=== PATIENT | female | born 1965 | race Caucasian/White ===

== ENCOUNTER 2017-01-04 12:00 | Emergency (ER) | payer BC ==
[~2017-01-04 12:00] MED LIST: Acetaminophen/HYDROcodone 325-5 MG Tab PO ONE
[2017-01-04 12:11] VITALS: BP 109/67
[2017-01-04 12:59] LABS: CHLORIDE,CL 103 mEq/L (98-106); SODIUM,NA 139 mEq/L (136-145)
--- NOTE | 2017-01-04 13:17 | EDM.PDOC ---
ED HPI GENERAL MEDICAL PROBLEM - General Chief Complaint: Genitourinary Problem Stated Complaint: blood in urine Time Seen by Provider: 01/04/17 12:47 Source of Information: Reports: Patient, RN History Limitations: Reports: No Limitations - History of Present Illness INITIAL COMMENTS - FREE TEXT/NARRATIVE: Patient with long history 1year of UTI with recent treatment of UTI with Macrobid 2 weeks. She states she fell backwards last night off from chair sustaining injury to the Left flank region. She indicates feel to ground without LOC and pain in the Left flank with gross hematuria with clotting shortly after the fall. She indicates persistent discomfort in the left flank region-pain scale 9 and noted improvement with lemuel hematuria. She has presented for evaluation. Onset: Sudden Onset Date: 01/03/17 Onset Time: 20:00 Duration: Intermittent Location: Reports: Back, Other (Left Flank) Quality: Reports: Ache, Pressure, Sharp, Throbbing Severity: Severe Improves with: Reports: Heat Therapy, Rest Worsens with: Reports: Movement Context: Reports: Trauma Associated Symptoms: Reports: No Other Symptoms Treatments KAIWHAKAHAERE: Reports: NSAIDS Lower Back Pain Score (Numeric/FACES): 9 - Related Data Allergies Allergy/AdvReac Type Severity Reaction Status Date / Time cefuroxime [From Ceftin] Allergy Cannot Verified 01/04/17 12:11 Remember Home Meds: Home Meds RX: Acetaminophen [Tylenol] 325 mg PO ASDIRECTED PRN 09/02/13 [History] RX: Cholecalciferol (Vitamin D3) [Vitamin D3] 1,000 unit PO DAILY 09/02/13 [ History] RX: Folic Acid 1 mg PO DAILY 09/02/13 [History] RX: Multivitamin [Multi-Vitamin Daily] 1 each PO DAILY 09/02/13 [History] RX: Metoprolol Succinate [Toprol XL 50mg] 50 mg PO DAILY 09/20/15 [History] RX: Ondansetron 4 mg PO DAILY PRN 04/08/16 [History] RX: amLODIPine Besylate [Amlodipine Besylate] 5 mg PO DAILY 04/08/16 [History] Lisinopril/Hydrochlorothiazide [Lisinopril-Hctz 10-12.5 mg Tab] 1 tab PO DAILY 01/04/17 [History] RX: Esomeprazole Magnesium 40 mg PO DAILY 01/04/17 [History] RX: Methenamine Hippurate 1 gm PO DAILY 01/04/17 [History] Past Medical History Cardiovascular History: Reports: Hypertension Genitourinary History: Reports: UTI, Recurrent 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: Musculoskeletal History: Reports: RA Hematologic History: Reports: Anemia, Other (See Below) Other Hematologic History: iron infusions - Infectious Disease History Infectious Disease History: Reports: Extended Spectrum Beta-Lactamase (ESBL) - Past Surgical History GI Surgical History: Reports: Cholecystectomy, Colonoscopy, Other (See Below) Musculoskeletal Surgical History: Reports: None Social & Family History - Family History Family Medical History: Noncontributory - Tobacco Use Smoking Status *Q: Never Smoker Second Hand Smoke Exposure: No - Caffeine Use Caffeine Use: Reports: Soda - Alcohol Use Days Per Week of Alcohol Use: 2 Number of Drinks Per Day: 2 Total Drinks Per Week: 4 - Recreational Drug Use Recreational Drug Use: No ED ROS GENERAL - Review of Systems Review Of Systems: See Below Constitutional: Denies: Fever, Chills, Malaise, Weakness, Fatigue HEENT: Reports: No Symptoms Respiratory: Reports: No Symptoms Cardiovascular: Reports: No Symptoms Endocrine: Reports: No Symptoms : Reports: Flank Pain, Hematuria, Other (Recent UTI with course of Macrobid finished this am) Musculoskeletal: Reports: Back Pain Skin: Reports: No Symptoms Neurological: Reports: No Symptoms Psychiatric: Reports: No Symptoms Hematologic/Lymphatic: Reports: No Symptoms Immunologic: Reports: No Symptoms ED EXAM, RENAL/ - Physical Exam Exam: See Below Exam Limited By: No Limitations General Appearance: Alert, WD/WN, Moderate Distress Eye Exam: Bilateral Eye: EOMI, Normal Fundi, Normal Inspection, PERRL Ears: Normal External Exam Nose: Normal Inspection, Normal Mucosa Throat/Mouth: Normal Inspection, Normal Lips, Normal Teeth Head: Atraumatic, Normocephalic Neck: Normal Inspection, Supple, Non-Tender, Full Range of Motion Respiratory/Chest: No Respiratory Distress, Lungs Clear, Normal Breath Sounds, No Accessory Muscle Use, Chest Non-Tender Cardiovascular: Normal Peripheral Pulses, Regular Rate, Rhythm, No Edema, No Gallop, No JVD GI/Abdominal: Normal Bowel Sounds, Soft, Non-Tender (Female) Exam: Deferred Rectal (Female) Exam: Deferred Back Exam: Normal Inspection, CVA Tenderness (L), Decreased Range of Motion (No bruising noted in the left flank region extreme tenderness with light palpation) . No: Full Range of Motion, Paraspinal Tenderness Extremities: Normal Inspection, Normal Range of Motion, No Pedal Edema, Normal Capillary Refill Neurological: Alert, Oriented, CN II-XII Intact, Normal Cognition, Normal Gait, Normal Reflexes, No Motor/Sensory Deficits Psychiatric: Normal Affect, Normal Mood Skin Exam: Warm, Dry, Intact, Normal Color, No Rash Lymphatic: No Adenopathy Course - Vital Signs Last Recorded V/S: Last Vital Signs Temp 37.6 C 01/04/17 12:06 Pulse 69 01/04/17 12:06 Resp 16 01/04/17 12:06 BP 109/67 01/04/17 12:06 Pulse Ox 100 01/04/17 12:06 - Orders/Labs/Meds Orders: Active Orders 24 hr Category Date Time Status Abdomen Pelvis w Cont [CT] Stat Exams 01/04/17 12:25 Taken HYDROmorphone [Dilaudid] Med 01/04/17 13:19 Active 1 mg IVPUSH Q1H PRN Sodium Chloride 0.9% [Normal Saline] 1,000 ml Med 01/04/17 13:30 Active IV ASDIRECTED Medication Orders Hydromorphone HCl (Dilaudid) 1 mg IVPUSH Q1H PRN PRN Reason: Pain Last Admin: 01/04/17 16:31 Dose: 1 mg Admin: 01/04/17 13:28 Dose: 1 mg Sodium Chloride (Normal Saline) 1,000 mls @ 999 mls/hr IV ASDIRECTED JAYY Last Admin: 01/04/17 14:52 Dose: 999 mls/hr Infusion: 01/04/17 14:26 Dose: 999 mls/hr Admin: 01/04/17 13:25 Dose: 999 mls/hr Labs: Laboratory Tests 01/04/17 01/04/17 01/04/17 Range/Units 12:15 12:25 12:25 WBC 8.6 (5.0-10.0) 10^3/uL RBC 3.44 L (4.00-5.50) 10^6/uL Hgb 10.8 L (12.0-16.0) g/dL Hct 32.9 L (37.0-47.0) % MCV 95.6 H (82.0-94.0) fL MCH 31.4 (27.0-32.0) pg MCHC 32.8 L (33.0-38.0) g/dL RDW Coeff of Radha 12.5 (11.0-15.0) % Plt Count 380 (150-400) 10^3/uL Neut % (Auto) 60.9 (35-85) % Lymph % (Auto) 28.2 (10-55) % Callaway % (Auto) 8.4 (0-16) % Eos % (Auto) 2.1 (0-5) % Baso % (Auto) 0.4 (0-3) % Neut # (Auto) 5.22 (1.80-7.00) 10^3/uL Lymph # (Auto) 2.42 (1.00-4.80) 10^3/uL Callaway # (Auto) 0.72 (0.00-0.80) 10^3/uL Eos # (Auto) 0.18 (0.00-0.45) 10^3/uL Baso # (Auto) 0.03 10^3/uL Sodium 139 (136-145) mEq/L Potassium 4.2 (3.5-5.0) mEq/L Chloride 103 (98-106) mEq/L Carbon Dioxide 23 (21-32) mmol/L BUN 49 H (7-18) mg/dL Creatinine 1.9 H (0.6-1.0) mg/dL Est Cr Clr Drug Dosing 30.81 mL/min Estimated GFR (MDRD) 28 L (>=60) mL/min Glucose 100 H (75-99) mg/dL Calcium 8.7 (8.4-10.1) mg/dL Total Bilirubin 0.4 (0.0-1.0) mg/dL AST 16 (15-37) U/L ALT 20 (12-78) U/L Alkaline Phosphatase 79 (46-116) U/L C-Reactive Protein < 0.2 L (0.2-0.8) mg/dL Total Protein 7.7 (6.4-8.2) g/dL Albumin 3.7 (3.4-5.0) g/dL Urine Color Yellow (YELLOW) Urine Appearance Slightly cloudy (CLEAR) Urine pH 5.5 (4.5-8.0) Ur Specific Aston 1.010 (1.003-1.020) Urine Protein Negative (NEGATIVE) mg/dL Urine Glucose (UA) Negative (NEGATIVE) mg/dL Urine Ketones Negative (NEGATIVE) mg/dL Urine Occult Blood Moderate H (NEGATIVE) Urine Nitrite Negative (NEGATIVE) Urine Bilirubin Negative (NEGATIVE) Urine Urobilinogen 0.2 (0.2-1.0) EU/dL Ur Leukocyte Esterase Small H (NEGATIVE) Urine RBC 20-30 H (0-5) /HPF Urine WBC 10-20 H (0-5) /HPF Urine Bacteria Occasional H (NOT SEEN) /HPF Meds: Medications Generic Name Dose Route Start Last Admin Trade Name Freq PRN Reason Stop Dose Admin Hydromorphone HCl 1 mg 01/04/17 13:19 01/04/17 16:31 Dilaudid IVPUSH 1 mg Q1H PRN Administration Pain Sodium Chloride 1,000 mls @ 999 mls/hr 01/04/17 13:30 01/04/17 14:52 Normal Saline IV 999 mls/hr ASDIRECTED JAYY Administration Discontinued Medications Generic Name Dose Route Start Last Admin Trade Name Freq PRN Reason Stop Dose Admin Iopamidol 100 ml 01/04/17 14:51 01/04/17 14:53 Isovue-300 (61%) IVPUSH 01/04/17 14:52 80 ml ONETIME ONE Administration Departure - Departure Time of Disposition: 16:41 Disposition: Home, Self-Care 01 Condition: Good Clinical Impression: Hematuria syndrome, UTI, Urinary tract infectious disease, Hematuria due to chronic cystitis, Renal insufficiency - Discharge Information Instructions: Pain Medicine Instructions, [id number], Urinary Tract Infection , Adult, [id number] Forms: ED Department Discharge Additional Instructions: Discussed with patient negative CT results and persistant UTI. Will repeat IV pain medication and allow to go home to F/U with Dr. Rivera in the am. Ua set up for culture will await results prior to reinitiating antibiotics. FLuids and hydration avised. Avoid NSAIDs Tie Siding 5 take 1 tablet every 6-8 hours orn. F/U if increased pain, hematuria or other S/S occurs prior to PCP appointment. Patient and in agreement. Will leave Hep Lock in. - Problem List & Annotations (1) Hematuria due to chronic cystitis SNOMED Code(s): 099681106358258 Code(s): N30.21 - OTHER CHRONIC CYSTITIS WITH HEMATURIA Status: Acute Current Visit: Yes (2) Renal insufficiency SNOMED Code(s): 122809272 Code(s): N28.9 - DISORDER OF KIDNEY AND URETER, UNSPECIFIED Status: Acute Current Visit: No - Problem List Review Problem List Initiated/Reviewed/Updated: Yes - My Orders Last 24 Hours: My Active Orders 01/04/17 12:25 Abdomen Pelvis w Cont [CT] Stat 01/04/17 13:19 HYDROmorphone [Dilaudid] 1 mg IVPUSH Q1H PRN 01/04/17 13:30 Sodium Chloride 0.9% [Normal Saline] 1,000 ml IV ASDIRECTED - Assessment/Plan Last 24 Hours: My Active Orders 01/04/17 12:25 Abdomen Pelvis w Cont [CT] Stat 01/04/17 13:19 HYDROmorphone [Dilaudid] 1 mg IVPUSH Q1H PRN 01/04/17 13:30 Sodium Chloride 0.9% [Normal Saline] 1,000 ml IV ASDIRECTED Assessment:: Ground level fall Left FLank Pain UTI Hematuria Plan: Discussed with patient negative CT results and persistant UTI. Will repeat IV pain medication and allow to go home to F/U with Dr. Rivera in the am. Ua set up for culture will await results prior to reinitiating antibiotics. FLuids and hydration avised. Avoid NSAIDs Tie Siding 5 take 1 tablet every 6-8 hours orn. F/U if increased pain, hematuria or other S/S occurs prior to PCP appointment. Patient and in agreement. Will leave Hep Lock in.
[2017-01-04] MEDS: Sodium Chloride 0.9% 1,000 ML IV SCH ×2 (13:25→14:52)
[2017-01-04] MEDS: HYDROmorphone 1 MG/ML Syringe IVPUSH PRN ×2 (13:28→16:31)
[2017-01-04] MEDS ORDERED: Iopamidol 612 MG/ML 100 ML Bottle IVPUSH ONE (14:51)
[2017-01-04] MEDS ORDERED: Take Home: Acetaminophen/HYDROcodone 325-5 MG, 2 Tab Pack PO ONE (16:45)
== END 2017-01-04 16:55 | disposition home or self-care (01) ==
LOC: CC.ED 12:00
DX: N30.21 Other chronic cystitis with hematuria (principal); I10 Essential (primary) hypertension; M06.9 Rheumatoid arthritis, unspecified; N28.9 Disorder of kidney and ureter, unspecified; Z90.49 Acquired absence of other specified parts of digestive tract; Z88.1 Allergy status to other antibiotic agents; Z87.440 Personal history of urinary (tract) infections
CPT/HCPCS: 36415; 74177; 80053; 81001; 85025; 86140; 87086; 87088; 96361; 96374; 96376; 99284; A9270; J1170; J7030; Q9967; 87186

== ENCOUNTER 2017-06-28 19:08 | Inpatient (IN) | payer BC ==
[2017-06-28] MEDS ORDERED: Albuterol/Ipratropium 3.0-0.5 MG/3 ML Neb Soln NEB ONE (19:28)
--- NOTE | 2017-06-28 19:44 | EDM.PDOC ---
ED HPI GENERAL MEDICAL PROBLEM - General Chief Complaint: Fever Stated Complaint: fever, shortness of breath, cough Time Seen by Provider: 06/28/17 19:23 Source of Information: Reports: Patient History Limitations: Reports: No Limitations - History of Present Illness INITIAL COMMENTS - FREE TEXT/NARRATIVE: This patient is a 51 year old male that presents to the ER. Patient reports that on Thursday she began having runny nose, congestion, drainage, headache, body aches, fever, productive cough, shortness of breath. Patient reports that she has been around someone who has been ill. Patient is alert and oriented. She is conversing in full and complete sentences. Patient denies dizziness, n, v , d, abd pain, cp, rashes, urinary/bowel changes. Onset Date: 06/26/17 Duration: Day(s): (2) Quality: Reports: Ache Severity: Moderate Improves with: Reports: None Worsens with: Reports: None Associated Symptoms: Reports: Cough, cough w sputum, Diaphoresis, Fever/Chills, Headaches, Malaise, Shortness of Breath. 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 ENGINEERING ANALYST: IBUPROFEN Generalized Pain Score (Numeric/FACES): 6 - Related Data Allergies Allergy/AdvReac Type Severity Reaction Status Date / Time No Known Allergies Allergy Verified 06/28/17 19:10 Home Meds: Home Meds Acetaminophen [Tylenol] 325 mg PO ASDIRECTED PRN 09/02/13 [History] Cholecalciferol (Vitamin D3) [Vitamin D3] 1,000 unit PO DAILY 09/02/13 [History] Folic Acid 1 mg PO DAILY 09/02/13 [History] Multivitamin [Multi-Vitamin Daily] 1 each PO DAILY 09/02/13 [History] Metoprolol Succinate [Toprol XL 50mg] 50 mg PO DAILY 09/20/15 [History] Ondansetron 4 mg PO DAILY PRN 04/08/16 [History] Esomeprazole Magnesium 40 mg PO DAILY 01/04/17 [History] oxyCODONE HCl [Oxycontin] 10 mg PO BID PRN 01/13/17 [History] Past Medical History Cardiovascular History: Reports: Hypertension Genitourinary History: Reports: UTI, Recurrent MANAGER PE History: Reports: Musculoskeletal History: Reports: RA Hematologic History: Reports: Anemia, Other (See Below) Other Hematologic History: iron infusions - Infectious Disease History Infectious Disease History: Reports: Extended Spectrum Beta-Lactamase (ESBL) - Past Surgical History GI Surgical History: Reports: Bariatric Procedure, Cholecystectomy, Colonoscopy , Other (See Below) Other GI Surgeries/Procedures: gastric bypass Female Surgical History: Reports: Hysterectomy Musculoskeletal Surgical History: Reports: None Social & Family History - Family History Family Medical History: Noncontributory - Tobacco Use Smoking Status *Q: Never Smoker Second Hand Smoke Exposure: No - Caffeine Use Caffeine Use: Reports: Soda - Alcohol Use Days Per Week of Alcohol Use: 2 Number of Drinks Per Day: 2 Total Drinks Per Week: 4 - Recreational Drug Use Recreational Drug Use: No ED ROS GENERAL - Review of Systems Review Of Systems: See Below Constitutional: Reports: Fever, Chills, Malaise, Night Sweats HEENT: Reports: Rhinitis, Sinus Problem Respiratory: Reports: Shortness of Breath, Wheezing, Cough, Sputum Cardiovascular: Reports: No Symptoms Endocrine: Reports: No Symptoms GI/Abdominal: Reports: No Symptoms : Reports: No Symptoms Musculoskeletal: Reports: Muscle Pain (body aches) Skin: Reports: No Symptoms Neurological: Reports: No Symptoms Psychiatric: Reports: No Symptoms Hematologic/Lymphatic: Reports: No Symptoms Immunologic: Reports: No Symptoms ED EXAM, GENERAL - Physical Exam Exam: See Below Exam Limited By: No Limitations General Appearance: Alert, WD/WN, No Apparent Distress Eye Exam: Bilateral Eye: Normal Inspection, PERRL Ears: Normal External Exam, Normal Canal, Hearing Grossly Normal, Normal TMs Ear Exam: Bilateral Ear: Auricle Normal, Canal Normal, TM normal Nose: Normal Mucosa, No Blood, Nasal Drainage Throat/Mouth: Normal Inspection, Normal Lips, Normal Teeth, Normal Gums, Normal Oropharynx, Normal Voice, No Airway Compromise Head: Atraumatic, Normocephalic Neck: Normal Inspection, Supple, Non-Tender, Full Range of Motion Respiratory/Chest: No Respiratory Distress, No Accessory Muscle Use, Decreased Breath Sounds (moderately throughout. ), Rhonchi (throughout moderate) Cardiovascular: Normal Peripheral Pulses, Regular Rate, Rhythm, No Edema, No Gallop, No JVD, No Murmur, No Rub Peripheral Pulses: 2+: Radial (L), Radial (R), Posterior Tibial (L), Posterior Tibial (R) GI/Abdominal: Normal Bowel Sounds, Soft, Non-Tender, No Organomegaly, No Distention, No Abnormal Bruit, No Mass, Pelvis Stable (Female) Exam: Deferred Rectal (Female) Exam: Deferred Back Exam: Normal Inspection, Full Range of Motion Extremities: Normal Inspection, Normal Range of Motion, Non-Tender, No Pedal Edema, Normal Capillary Refill Neurological: Alert, Oriented, Normal Cognition, Normal Gait, No Motor/Sensory Deficits Psychiatric: Normal Affect, Normal Mood Skin Exam: Warm, Dry, Intact, Normal Color, No Rash Lymphatic: No Adenopathy Course - Vital Signs Last Recorded V/S: Last Vital Signs Temp 100 F 06/28/17 20:35 Pulse 101 H 06/28/17 19:13 Resp 20 06/28/17 19:13 BP 116/69 06/28/17 19:13 Pulse Ox 97 06/28/17 19:13 - Orders/Labs/Meds Orders: Active Orders 24 hr Category Date Time Status Patient Status [ADT] Routine ADT 06/28/17 20:54 Active Ambulate [RC] PER UNIT ROUTINE Care 06/28/17 20:54 Active Antiembolic Devices [RC] PER UNIT ROUTINE Care 06/28/17 20:54 Active Notify Provider Vital Signs [RC] ASDIRECTED Care 06/28/17 20:54 Active Oxygen Therapy [RC] PRN Care 06/28/17 20:54 Active Pulse Oximetry [RC] PRN Care 06/28/17 20:54 Active RT Aerosol Therapy [RC] ASDIRECTED Care 06/28/17 19:28 Active RT Aerosol Therapy [RC] ASDIRECTED Care 06/28/17 20:54 Active Up to Chair [RC] ASDIRECTED Care 06/28/17 20:54 Active VTE/DVT Education [RC] PER UNIT ROUTINE Care 06/28/17 20:54 Active Vital Signs [RC] Q4H Care 06/28/17 20:54 Active Heart Healthy Diet [DIET] Diet 06/28/17 Breakfast Active Chest 2V [CR] Stat Exams 06/28/17 19:27 Taken BASIC METABOLIC PANEL,BMP [CHEM] DAILY Lab 06/29/17 05:00 Ordered BASIC METABOLIC PANEL,BMP [CHEM] DAILY Lab 06/30/17 05:00 Ordered BASIC METABOLIC PANEL,BMP [CHEM] DAILY Lab 07/01/17 05:00 Ordered C-REACTIVE PROTEIN [CHEM] DAILY Lab 06/29/17 05:00 Ordered C-REACTIVE PROTEIN [CHEM] DAILY Lab 06/30/17 05:00 Ordered C-REACTIVE PROTEIN [CHEM] DAILY Lab 07/01/17 05:00 Ordered CBC WITH AUTO DIFF [HEME] DAILY Lab 06/29/17 05:00 Ordered CBC WITH AUTO DIFF [HEME] DAILY Lab 06/30/17 05:00 Ordered CBC WITH AUTO DIFF [HEME] DAILY Lab 07/01/17 05:00 Ordered CULTURE BLOOD [BC] Stat Lab 06/28/17 19:52 Received CULTURE BLOOD [BC] Stat Lab 06/28/17 19:52 Received Acetaminophen [Tylenol] Med 06/28/17 20:54 Active 650 mg PO Q4H PRN Albuterol/Ipratropium [DuoNeb 3.0-0.5 MG/3 ML] Med 06/28/17 20:54 Active 3 ml NEB Q4H PRN Albuterol/Ipratropium [DuoNeb 3.0-0.5 MG/3 ML] Med 06/29/17 08:00 Active 3 ml NEB QIDRT Esomeprazole Magnesium [Esomeprazole Magnesium] Med 06/29/17 08:00 Active 40 mg PO DAILY Folic Acid Med 06/29/17 08:00 Active 1 mg PO DAILY Ibuprofen [Motrin] Med 06/28/17 20:54 Active 600 mg PO Q6H PRN Metoprolol Succinate [Toprol XL 50mg] Med 06/29/17 08:00 Active 50 mg PO DAILY Morphine Med 06/28/17 20:54 Active 2 mg IVPUSH Q2H PRN Ondansetron [Zofran ODT] Med 06/28/17 20:54 Active 4 mg PO Q6H PRN Oseltamivir [Tamiflu] Med 06/28/17 21:00 Active 75 mg PO BID Sodium Chloride 0.9% [Normal Saline] 1,000 ml Med 06/28/17 20:27 Active IV .BOLUS Sodium Chloride 0.9% [Normal Saline] 1,000 ml Med 06/28/17 20:54 Active IV ASDIRECTED Antiembolic Hose [OM.PC] Per Unit Routine Oth 06/28/17 20:54 Ordered Blood Culture x2 Reflex Set [OM.PC] Stat Oth 06/28/17 19:27 Ordered Resuscitation Status Routine Resus Stat 06/28/17 20:44 Ordered Medication Orders Acetaminophen (Tylenol) 650 mg PO Q4H PRN PRN Reason: Pain (Mild 1-3)/fever Albuterol/Ipratropium (Duoneb 3.0-0.5 Mg/3 Ml) 3 ml NEB Q4H PRN PRN Reason: Shortness Of Breath/wheezing Albuterol/Ipratropium (Duoneb 3.0-0.5 Mg/3 Ml) 3 ml NEB QIDRT JAYY Folic Acid (Folic Acid) 1 mg PO DAILY [facility] Sodium Chloride (Normal Saline) 1,000 mls @ 1,000 mls/hr IV .BOLUS ONE Stop: 06/28/17 21:26 Last Admin: 06/28/17 20:35 Dose: 1,000 mls/hr Sodium Chloride (Normal Saline) 1,000 mls @ 125 mls/hr IV ASDIRECTED [facility] Stop: 06/30/17 08:00 Ibuprofen (Motrin) 600 mg PO Q6H PRN PRN Reason: Pain (mild 1-3) Morphine Sulfate (Morphine) 2 mg IVPUSH Q2H PRN PRN Reason: Pain (severe 7-10) Non-Formulary Medication (Esomeprazole Magnesium [Esomeprazole Magnesium]) 40 mg PO DAILY [facility] Non-Formulary Medication (Metoprolol Succinate [Toprol Xl 50mg]) 50 mg PO DAILY [facility] Ondansetron HCl (Zofran Odt) 4 mg PO Q6H PRN PRN Reason: nausea, able to take PO Oseltamivir Phosphate (Tamiflu) 75 mg PO BID [facility] Labs: Laboratory Tests 06/28/17 06/28/17 06/28/17 Range/Units 19:27 19:27 19:27 WBC 14.7 H (5.0-10.0) 10^3/uL RBC 3.15 L (4.00-5.50) 10^6/uL Hgb 10.1 L (12.0-16.0) g/dL Hct 30.8 L (37.0-47.0) % MCV 97.8 H (82.0-94.0) fL MCH 32.1 H (27.0-32.0) pg MCHC 32.8 L (33.0-38.0) g/dL RDW Coeff of Radha 14.6 (11.0-15.0) % Plt Count 237 (150-400) 10^3/uL Neut % (Auto) 84.3 (35-85) % Lymph % (Auto) 11.1 (10-55) % [place] % (Auto) 4.4 (0-16) % Eos % (Auto) 0.1 (0-5) % Baso % (Auto) 0.1 (0-3) % Neut # (Auto) 12.42 H (1.80-7.00) 10^3/uL Lymph # (Auto) 1.63 (1.00-4.80) 10^3/uL [place] # (Auto) 0.64 (0.00-0.80) 10^3/uL Eos # (Auto) 0.01 (0.00-0.45) 10^3/uL Baso # (Auto) 0.01 10^3/uL Sodium 139 (136-145) mEq/L Potassium 3.3 L (3.5-5.0) mEq/L Chloride 108 H (98-106) mEq/L Carbon Dioxide 17 L (21-32) mmol/L BUN 32 H (7-18) mg/dL Creatinine 2.5 H D (0.6-1.0) mg/dL Est Cr Clr Drug Dosing 23.42 mL/min Estimated GFR (MDRD) 20 L (>=60) mL/min Glucose 166 H D (75-99) mg/dL Lactic Acid 1.4 (0.4-2.0) mmol/L Calcium 8.3 L (8.4-10.1) mg/dL Total Bilirubin 0.3 (0.0-1.0) mg/dL AST 23 (15-37) U/L ALT 22 (12-78) U/L Alkaline Phosphatase 82 (46-116) U/L C-Reactive Protein 14.3 H (0.2-0.8) mg/dL Total Protein 6.8 (6.4-8.2) g/dL Albumin 3.0 L (3.4-5.0) g/dL Meds: Medications Generic Name Dose Route Start Last Admin Trade Name Freq PRN Reason Stop Dose Admin Acetaminophen 650 mg 06/28/17 20:54 Tylenol PO Q4H PRN Pain (Mild 1-3)/fever Albuterol/Ipratropium 3 ml 06/28/17 20:54 Duoneb 3.0-0.5 Mg/3 Ml NEB Q4H PRN Shortness Of Breath/wheezing Albuterol/Ipratropium 3 ml 06/29/17 08:00 Duoneb 3.0-0.5 Mg/3 Ml NEB QIDRT JAYY Folic Acid 1 mg 06/29/17 08:00 Folic Acid PO DAILY [facility] Sodium Chloride 1,000 mls @ 1,000 mls/hr 06/28/17 20:27 06/28/17 20:35 Normal Saline IV 06/28/17 21:26 1,000 mls/hr .BOLUS ONE Administration Sodium Chloride 1,000 mls @ 125 mls/hr 06/28/17 20:54 Normal Saline IV 06/30/17 08:00 ASDIRECTED [facility] Ibuprofen 600 mg 06/28/17 20:54 Motrin PO Q6H PRN Pain (mild 1-3) Morphine Sulfate 2 mg 06/28/17 20:54 Morphine IVPUSH Q2H PRN Pain (severe 7-10) Non-Formulary Medication 40 mg 06/29/17 08:00 Esomeprazole Magnesium [Esomeprazole Magnesium] PO DAILY [facility] Non-Formulary Medication 50 mg 06/29/17 08:00 Metoprolol Succinate [Toprol Xl 50mg] PO DAILY [facility] Ondansetron HCl 4 mg 06/28/17 20:54 Zofran Odt PO Q6H PRN nausea, able to take PO Oseltamivir Phosphate 75 mg 06/28/17 21:00 Tamiflu PO BID [facility] Discontinued Medications Generic Name Dose Route Start Last Admin Trade Name Freq PRN Reason Stop Dose Admin Acetaminophen 1,000 mg 06/28/17 20:28 06/28/17 20:35 Tylenol Extra Strength PO 06/28/17 20:29 1,000 mg ONETIME ONE Administration Albuterol/Ipratropium 3 ml 06/28/17 19:28 06/28/17 19:30 Duoneb 3.0-0.5 Mg/3 Ml NEB 06/28/17 19:29 3 ml ONETIME ONE Administration - Radiology Interpretation Free Text/Narrative:: CXR: Discussed with radiologist: No infiltrate, lungs clear, no edema, no cardiac enlargement. - Re-Assessments/Exams Free Text/Narrative Re-Assessment/Exam: 06/28/17 20:38 Patient renal labs are worse than baseline. She appears dry. She does not appear toxic, but does appear ill. Patient lungs sounds decreased. She does have elevation of wbc. At this time with a positive flu and her presentation and renal function, I will admit. I will not treat with abx at this time, will hydrate and recheck labs tomorrow. Her PCP will see her tomorrow. Departure - Departure Time of Disposition: 20:40 Disposition: Admitted As Inpatient 64 Condition: Fair Clinical Impression: Influenza B Acute on chronic renal failure Qualifiers: Acute renal failure type: unspecified Chronic kidney disease stage: unspecified stage Qualified Code(s): N17.9 - Acute kidney failure, unspecified Leukocytosis Qualifiers: Leukocytosis type: unspecified Qualified Code(s): D72.829 - Elevated white blood cell count, unspecified Acute bronchitis Qualifiers: Bronchitis organism: Haemophilus influenzae Qualified Code(s): J20.1 - Acute bronchitis due to Hemophilus influenzae - Discharge Information Referrals: Fabian Rivera MD [Primary Care Provider] - Forms: ED Department Discharge - My Orders Last 24 Hours: My Active Orders 06/28/17 19:27 Chest 2V [CR] Stat Blood Culture x2 Reflex Set [OM.PC] Stat 06/28/17 19:28 RT Aerosol Therapy [RC] ASDIRECTED 06/28/17 19:52 CULTURE BLOOD [BC] Stat CULTURE BLOOD [BC] Stat 06/28/17 20:27 Sodium Chloride 0.9% [Normal Saline] 1,000 ml IV .BOLUS 06/28/17 20:44 Resuscitation Status Routine 06/28/17 20:54 Patient Status [ADT] Routine Ambulate [RC] PER UNIT ROUTINE Antiembolic Devices [RC] PER UNIT ROUTINE Notify Provider Vital Signs [RC] ASDIRECTED Oxygen Therapy [RC] PRN Pulse Oximetry [RC] PRN RT Aerosol Therapy [RC] ASDIRECTED Up to Chair [RC] ASDIRECTED VTE/DVT Education [RC] PER UNIT ROUTINE Vital Signs [RC] Q4H Acetaminophen [Tylenol] 650 mg PO Q4H PRN Albuterol/Ipratropium [DuoNeb 3.0-0.5 MG/3 ML] 3 ml NEB Q4H PRN Ibuprofen [Motrin] 600 mg PO Q6H PRN Morphine 2 mg IVPUSH Q2H PRN Ondansetron [Zofran ODT] 4 mg PO Q6H PRN Sodium Chloride 0.9% [Normal Saline] 1,000 ml IV ASDIRECTED Antiembolic Hose [OM.PC] Per Unit Routine 06/28/17 21:00 Oseltamivir [Tamiflu] 75 mg PO BID 06/28/17 Breakfast Heart Healthy Diet [DIET] 06/29/17 05:00 BASIC METABOLIC PANEL,BMP [CHEM] DAILY C-REACTIVE PROTEIN [CHEM] DAILY CBC WITH AUTO DIFF [HEME] DAILY 06/29/17 08:00 Albuterol/Ipratropium [DuoNeb 3.0-0.5 MG/3 ML] 3 ml NEB QIDRT Esomeprazole Magnesium [Esomeprazole Magnesium] 40 mg PO DAILY Folic Acid 1 mg PO DAILY Metoprolol Succinate [Toprol XL 50mg] 50 mg PO DAILY 06/30/17 05:00 BASIC METABOLIC PANEL,BMP [CHEM] DAILY C-REACTIVE PROTEIN [CHEM] DAILY CBC WITH AUTO DIFF [HEME] DAILY 07/01/17 05:00 BASIC METABOLIC PANEL,BMP [CHEM] DAILY C-REACTIVE PROTEIN [CHEM] DAILY CBC WITH AUTO DIFF [HEME] DAILY - Assessment/Plan Last 24 Hours: My Active Orders 06/28/17 19:27 Chest 2V [CR] Stat Blood Culture x2 Reflex Set [OM.PC] Stat 06/28/17 19:28 RT Aerosol Therapy [RC] ASDIRECTED 06/28/17 19:52 CULTURE BLOOD [BC] Stat CULTURE BLOOD [BC] Stat 06/28/17 20:27 Sodium Chloride 0.9% [Normal Saline] 1,000 ml IV .BOLUS 06/28/17 20:44 Resuscitation Status Routine 06/28/17 20:54 Patient Status [ADT] Routine Ambulate [RC] PER UNIT ROUTINE Antiembolic Devices [RC] PER UNIT ROUTINE Notify Provider Vital Signs [RC] ASDIRECTED Oxygen Therapy [RC] PRN Pulse Oximetry [RC] PRN RT Aerosol Therapy [RC] ASDIRECTED Up to Chair [RC] ASDIRECTED VTE/DVT Education [RC] PER UNIT ROUTINE Vital Signs [RC] Q4H Acetaminophen [Tylenol] 650 mg PO Q4H PRN Albuterol/Ipratropium [DuoNeb 3.0-0.5 MG/3 ML] 3 ml NEB Q4H PRN Ibuprofen [Motrin] 600 mg PO Q6H PRN Morphine 2 mg IVPUSH Q2H PRN Ondansetron [Zofran ODT] 4 mg PO Q6H PRN Sodium Chloride 0.9% [Normal Saline] 1,000 ml IV ASDIRECTED Antiembolic Hose [OM.PC] Per Unit Routine 06/28/17 21:00 Oseltamivir [Tamiflu] 75 mg PO BID 06/28/17 Breakfast Heart Healthy Diet [DIET] 06/29/17 05:00 BASIC METABOLIC PANEL,BMP [CHEM] DAILY C-REACTIVE PROTEIN [CHEM] DAILY CBC WITH AUTO DIFF [HEME] DAILY 06/29/17 08:00 Albuterol/Ipratropium [DuoNeb 3.0-0.5 MG/3 ML] 3 ml NEB QIDRT Esomeprazole Magnesium [Esomeprazole Magnesium] 40 mg PO DAILY Folic Acid 1 mg PO DAILY Metoprolol Succinate [Toprol XL 50mg] 50 mg PO DAILY 06/30/17 05:00 BASIC METABOLIC PANEL,BMP [CHEM] DAILY C-REACTIVE PROTEIN [CHEM] DAILY CBC WITH AUTO DIFF [HEME] DAILY 07/01/17 05:00 BASIC METABOLIC PANEL,BMP [CHEM] DAILY C-REACTIVE PROTEIN [CHEM] DAILY CBC WITH AUTO DIFF [HEME] DAILY Plan: PLEASE SEE RN NOTE FOR PFSH.
[2017-06-28] MEDS ORDERED: Sodium Chloride 0.9% 1,000 ML IV ONE (20:27)
[2017-06-28] MEDS ORDERED: Acetaminophen 500 MG Tab PO ONE (20:28)
[2017-06-28] MEDS ORDERED: Ondansetron 4 MG Tab.DIS PO PRN (20:54)
[2017-06-28] MEDS ORDERED: Albuterol/Ipratropium 3.0-0.5 MG/3 ML Neb Soln NEB PRN (20:54)
[2017-06-28] MEDS ORDERED: Acetaminophen 325 MG Tab PO PRN (20:54)
[2017-06-28] MEDS ORDERED: Morphine 2 MG/ML Syringe IVPUSH PRN (20:54)
[2017-06-28] MEDS: Oseltamivir 75 MG Cap PO SCH (21:04)
[2017-06-28] MEDS: Sodium Chloride 0.9% 1,000 ML IV SCH (22:20)
[2017-06-29] MEDS: Sodium Chloride 0.9% 1,000 ML IV SCH ×3 (06:28→20:59)
[2017-06-29] MEDS: Ibuprofen 200 MG Tab PO PRN (06:31)
[2017-06-29] MEDS ORDERED: Non-Formulary Medication 1 Each (Esomeprazole Magnesium [Esomeprazole Magnesium] 40 MG) PO SCH (08:00)
[2017-06-29] MEDS ORDERED: METOPROLOL SUCCINATE 50 MG PO SCH (08:00)
[2017-06-29] MEDS: Albuterol/Ipratropium 3.0-0.5 MG/3 ML Neb Soln NEB SCH ×4 (08:01→19:46)
[2017-06-29] MEDS: Oseltamivir 75 MG Cap PO SCH ×2 (08:02→19:46)
[2017-06-29] MEDS: Folic Acid 1 MG Tab PO SCH (08:02)
[2017-06-29] MEDS ORDERED: Meropenem 1 GM SDV IVPUSH SCH (08:15)
[2017-06-29] MEDS ORDERED: Metoprolol Succinate 25 MG Tab.ER PO ONE (08:45)
[2017-06-29] MEDS ORDERED: Pantoprazole 40 MG Tab.CR PO ONE (08:45)
[2017-06-29] MEDS: methylPREDNISolone Sodium Succinate 125 MG/2 ML SDV IVPUSH SCH ×2 (08:50→19:46)
[2017-06-29] MEDS: Meropenem 1 GM SDV IVPUSH SCH ×2 (08:52→19:46)
[2017-06-29] MEDS: Azithromycin 500 MG in Sodium Chloride 0.9% 250 ML IV SCH (08:54)
[2017-06-29] MEDS ORDERED: Azithromycin 500 MG Vial ONE (08:55)
[2017-06-29] MEDS: Acetaminophen/HYDROcodone 325-5 MG Tab PO PRN ×4 (08:55→21:16)
--- NOTE | 2017-06-29 10:05 | PN ---
DATE: 06/29/2017 S: Padmini Sharif is in with a positive influenza. O: NECK: Supple. CHEST: Wheezing, crepitus throughout. CARDIAC: Sounds are good. ABDOMEN: Soft. ASSESSMENT: INFLUENZA SECONDARY TO EITHER BRONCHOPNEUMONIA OR BRONCHIOLITIS. P: Started on IV antibiotics and IV steroids. Get a urine on her. JANESSA/KARIN /[id number]
[2017-06-29] MEDS: Codeine/Promethazine 10-6.25 MG/5 ML Syrup 5 ML UD Cup PO PRN (20:58)
[2017-06-30] MEDS: methylPREDNISolone Sodium Succinate 125 MG/2 ML SDV IVPUSH SCH ×2 (07:36→19:31)
[2017-06-30] MEDS: Sodium Chloride 0.9% 1,000 ML IV SCH ×2 (07:40→19:31)
[2017-06-30] MEDS: Meropenem 1 GM SDV IVPUSH SCH ×2 (07:43→19:31)
[2017-06-30] MEDS: Folic Acid 1 MG Tab PO SCH (07:48)
[2017-06-30] MEDS: Pantoprazole 40 MG Tab.CR PO SCH (07:49)
[2017-06-30] MEDS: Metoprolol Succinate 25 MG Tab.ER PO SCH (07:49)
[2017-06-30] MEDS: Oseltamivir 75 MG Cap PO SCH ×2 (07:49→19:31)
[2017-06-30] MEDS: Albuterol/Ipratropium 3.0-0.5 MG/3 ML Neb Soln NEB SCH ×4 (07:50→19:31)
[2017-06-30] MEDS: Azithromycin 500 MG in Sodium Chloride 0.9% 250 ML IV SCH (07:50)
[2017-06-30] MEDS: Acetaminophen/HYDROcodone 325-5 MG Tab PO PRN ×2 (07:55→19:48)
--- NOTE | 2017-06-30 11:46 | PN ---
DATE: 06/30/2017 S: Padmini Sharif is a 51-year-old lady in with influenza pneumonitis. She says she feels better today. O: NECK: Supple. CHEST: Wheezy, little crepitus, better than yesterday. CARDIAC: Sounds are good. ASSESSMENT: 1. INFLUENZA. 2. BRONCHIOLITIS. 3. EARLY PNEUMONITIS. P: I will get a mycoplasma titer on her. Hemoglobin has dropped. I think that is related to her illness and also dilutional. C-reactive protein pending. Panel 8 pending. JANESSA/KARIN /[id number]
[2017-06-30] MEDS: Ibuprofen 200 MG Tab PO PRN (16:40)
[2017-06-30] MEDS: Codeine/Promethazine 10-6.25 MG/5 ML Syrup 5 ML UD Cup PO PRN (22:19)
[2017-07-01] MEDS: methylPREDNISolone Sodium Succinate 125 MG/2 ML SDV IVPUSH SCH ×2 (07:32→19:42)
[2017-07-01] MEDS: Meropenem 1 GM SDV IVPUSH SCH ×2 (07:33→19:47)
[2017-07-01] MEDS: Pantoprazole 40 MG Tab.CR PO SCH (07:35)
[2017-07-01] MEDS: Metoprolol Succinate 25 MG Tab.ER PO SCH (07:35)
[2017-07-01] MEDS: Oseltamivir 75 MG Cap PO SCH ×2 (07:35→19:42)
[2017-07-01] MEDS: Folic Acid 1 MG Tab PO SCH (07:36)
[2017-07-01] MEDS: Albuterol/Ipratropium 3.0-0.5 MG/3 ML Neb Soln NEB SCH ×4 (07:36→19:45)
[2017-07-01] MEDS: Azithromycin 500 MG in Sodium Chloride 0.9% 250 ML IV SCH (07:36)
--- NOTE | 2017-07-01 09:14 | PN ---
DATE: 07/01/2017 S: Padmini Sharif is in with influenza, also pneumonitis. She feels better today. O: NECK: Supple. CHEST: Still has some wheezing crepitus. CARDIAC: Sounds are good. ASSESSMENT: BRONCHIOLITIS, PNEUMONITIS. P: Continue present therapy. JANESSA/KARIN /[id number]
[2017-07-01] MEDS: Acetaminophen/HYDROcodone 325-5 MG Tab PO PRN ×2 (09:40→19:54)
[2017-07-01] MEDS: Ibuprofen 200 MG Tab PO PRN (12:13)
[2017-07-01] MEDS: Sodium Chloride 0.9% 1,000 ML IV SCH ×2 (12:19→23:50)
[2017-07-01] MEDS: Codeine/Promethazine 10-6.25 MG/5 ML Syrup 5 ML UD Cup PO PRN (23:51)
[2017-07-02 07:11] VITALS: BP 128/89
[2017-07-02] MEDS: methylPREDNISolone Sodium Succinate 125 MG/2 ML SDV IVPUSH SCH (07:34)
[2017-07-02] MEDS: Oseltamivir 75 MG Cap PO SCH (07:34)
[2017-07-02] MEDS: Metoprolol Succinate 25 MG Tab.ER PO SCH (07:34)
[2017-07-02] MEDS: Azithromycin 500 MG in Sodium Chloride 0.9% 250 ML IV SCH (07:34)
[2017-07-02] MEDS: Folic Acid 1 MG Tab PO SCH (07:34)
[2017-07-02] MEDS: Albuterol/Ipratropium 3.0-0.5 MG/3 ML Neb Soln NEB SCH (07:34)
[2017-07-02] MEDS: Pantoprazole 40 MG Tab.CR PO SCH (07:35)
[2017-07-02] MEDS: Meropenem 1 GM SDV IVPUSH SCH (07:39)
[2017-07-02] MEDS: Ibuprofen 200 MG Tab PO PRN (08:06)
--- NOTE | 2017-07-02 08:34 | PCM.DCSUM1 ---
Discharge Summary - Hospital Course HPI Initial Comments: Padmini is a 51 year old female who was admitted to the hospital from the ED on for influenza B and acute on chronic renal insufficiency. She was initially started on IV hydration and tamiflu. Patient's lung sounds had wheezing and crepitus throughout, so IV meropenum, IV azithromycin, and IV steroids were added for suspected pneumonitis and bronchiolitis. UA was obtained given acute renal insufficiency and was positive, however urine culture was negative. Throughout hospital stay her labs improved. WBC was 14.7 on admission. WBC trended down throughout hospital stay and was 9.9 at time of discharge. CRP was 14.3 on admission, did increase on hospital day 1 (20.2) and 2 (22.8), but normalized to 4.5 at time of discharge. Creatinine and BUN were elevated above patient's baseline on admission. Creatinine was 2.5 and BUN was 32 at admission. Both improved with gentle IV hydration. At time of discharge creatinine was returned to baseline at 1.7. On day of discharge, patient reported she was feeling much better. Her lung sounds were greatly improved. She felt she was ready to go home. She reports her cough has loosened and she was coughing up sputum. She reported she was breathing much easier and feeling less short of breath. She reports she feels like she has much more energy. She wishes to go home. Discussed with Dr. Rivera. We will discharge patient home on a Z pack, prednisone , Duonebs, and cough medicine. Patient will follow up in clinic with Dr. Rivera on Thursday07/07/2017. - Discharge Data Discharge Date: 07/02/17 Discharge Disposition: Home, Self-Care 01 Condition: Good - Discharge Diagnosis/Problem(s) (1) Pneumonitis SNOMED Code(s): 627017975 ICD Code: J18.9 - PNEUMONIA, UNSPECIFIED ORGANISM Status: Acute Current Visit: Yes (2) Influenza B SNOMED Code(s): 58733871 ICD Code: J10.1 - FLU DUE TO OTH IDENT INFLUENZA VIRUS W OTH RESP MANIFEST Status: Acute Current Visit: Yes (3) Bronchiolitis due to influenza virus SNOMED Code(s): 90624354547777772 ICD Code: J11.1 - FLU DUE TO UNIDENTIFIED INFLUENZA VIRUS W OTH RESP MANIFEST Status: Acute Current Visit: Yes (4) Acute on chronic renal insufficiency SNOMED Code(s): 463101481 ICD Code: N28.9 - DISORDER OF KIDNEY AND URETER, UNSPECIFIED; N18.9 - CHRONIC KIDNEY DISEASE, UNSPECIFIED Status: Acute Current Visit: Yes - Patient Instructions Diet: Usual Diet as Tolerated Activity: As Tolerated Notify Provider of: Fever, Increased Pain, Swelling and Redness, Drainage, Nausea and/or Vomiting - Discharge Plan Prescriptions/Med Rec: Albuterol/Ipratropium [DuoNeb 3.0-0.5 MG/3 ML] 3 ml NEB QIDRT PRN #20 neb PRN Reason: Shortness Of Breath Azithromycin [IJD: Azithromycin] 250 mg PO DAILY 5 Days #6 tab Codeine/Promethazine [Phenergan with Codeine] 5 - 10 ml PO Q6H PRN #240 ml PRN Reason: Cough Oseltamivir [Tamiflu] 75 mg PO BID #3 cap predniSONE [Prednisone] 20 mg PO DAILY 5 Days #5 tablet Home Medications: Home Meds Acetaminophen [Tylenol] 325 mg PO ASDIRECTED PRN 09/02/13 [History] Cholecalciferol (Vitamin D3) [Vitamin D3] 1,000 unit PO DAILY 09/02/13 [History] Folic Acid 1 mg PO DAILY 09/02/13 [History] Multivitamin [Multi-Vitamin Daily] 1 each PO DAILY 09/02/13 [History] Metoprolol Succinate [Toprol XL 50mg] 50 mg PO DAILY 09/20/15 [History] Ondansetron 4 mg PO DAILY PRN 04/08/16 [History] Esomeprazole Magnesium 40 mg PO DAILY 01/04/17 [History] oxyCODONE HCl [Oxycontin] 10 mg PO BID PRN 01/13/17 [History] Albuterol/Ipratropium [DuoNeb 3.0-0.5 MG/3 ML] 3 ml NEB QIDRT PRN #20 neb [Rx] Azithromycin [IJD: Azithromycin] 250 mg PO DAILY 5 Days #6 tab 07/02/17 [Rx] Codeine/Promethazine [Phenergan with Codeine] 5 - 10 ml PO Q6H PRN #240 ml 07/02 [Rx] Oseltamivir [Tamiflu] 75 mg PO BID #3 cap 07/02/17 [Rx] predniSONE [Prednisone] 20 mg PO DAILY 5 Days #5 tablet 07/02/17 [Rx] Patient Handouts: Influenza, Adult, Urinary Tract Infection, Adult, Community- Acquired Pneumonia, Adult Forms: ED Department Discharge Referrals: Fabian Rivera MD [Primary Care Provider] - - General Info Date of Service: 07/02/17 Admission Dx/Problem (Free Text: Influenza B Acute on Chronic Renal Insufficiency Functional Status: Reports: Pain Controlled, Tolerating Diet, Ambulating, Urinating. Denies: New Symptoms - Review of Systems General: Reports: Fatigue. Denies: Fever, Weakness, Chills Pulmonary: Reports: Shortness of Breath (improved), Cough, Sputum. Denies: Pleuritic Chest Pain, Hemoptysis Cardiovascular: Reports: Dyspnea on Exertion. Denies: Chest Pain, Palpitations , Edema, Lightheadedness Gastrointestinal: Reports: No Symptoms Genitourinary: Reports: No Symptoms Musculoskeletal: Reports: No Symptoms Skin: Reports: No Symptoms Neurological: Reports: No Symptoms Psychiatric: Reports: No Symptoms - Patient Data Vitals - Most Recent: Last Vital Signs Temp 97.4 F 07/02/17 07:11 Pulse 60 07/02/17 07:34 Resp 20 07/02/17 07:11 BP 128/89 07/02/17 07:34 Pulse Ox 97 07/02/17 07:11 Weight - Most Recent: 177 lb 1.6 oz Lab Results - Last 24 hrs: Laboratory Results - last 24 hr 07/01/17 07/02/17 07/02/17 Range/Units 07:15 06:30 06:30 WBC 9.9 (5.0-10.0) 10^3/uL RBC 2.71 L (4.00-5.50) 10^6/uL Hgb 8.8 L (12.0-16.0) g/dL Hct 27.2 L (37.0-47.0) % MCV 100.4 H (82.0-94.0) fL MCH 32.5 H (27.0-32.0) pg MCHC 32.4 L (33.0-38.0) g/dL RDW Coeff of Radha 14.8 (11.0-15.0) % Plt Count 280 (150-400) 10^3/uL Neut % (Auto) 87.1 H (35-85) % Lymph % (Auto) 8.1 L (10-55) % Barnes % (Auto) 4.7 (0-16) % Eos % (Auto) 0.1 (0-5) % Baso % (Auto) 0 (0-3) % Neut # (Auto) 8.59 H (1.80-7.00) 10^3/uL Lymph # (Auto) 0.80 L (1.00-4.80) 10^3/uL Barnes # (Auto) 0.46 (0.00-0.80) 10^3/uL Eos # (Auto) 0.01 (0.00-0.45) 10^3/uL Baso # (Auto) 0.00 10^3/uL Sodium 142 (136-145) mEq/L Potassium 3.8 3.3 L (3.5-5.0) mEq/L Chloride 112 H 111 H (98-106) mEq/L Carbon Dioxide 19 L 22 (21-32) mmol/L BUN 23 H 25 H (7-18) mg/dL Creatinine 1.4 H 1.7 H (0.6-1.0) mg/dL Est Cr Clr Drug Dosing 41.82 34.44 mL/min Estimated GFR (MDRD) 39 L 31 L (>=60) mL/min Glucose 123 H 116 H (75-99) mg/dL Calcium 8.4 8.7 (8.4-10.1) mg/dL C-Reactive Protein 11.2 H 4.5 H (0.2-0.8) mg/dL CRISTINA Results - Last 24 hrs: Microbiology 06/30/17 08:07 Mycoplasma Serology - Final Blood 06/29/17 10:55 Urine Culture - Final Urine, Voided Med Orders - Current: Current Medications Acetaminophen (Tylenol) 650 mg PO Q4H PRN PRN Reason: Pain (Mild 1-3)/fever Hydrocodone Bitart/Acetaminophen ([place] 325-5 Mg) 1 - 2 tab PO Q4H PRN PRN Reason: Pain Last Admin: 07/01/17 19:54 Dose: 2 tab Albuterol/Ipratropium (Duoneb 3.0-0.5 Mg/3 Ml) 3 ml NEB Q4H PRN PRN Reason: Shortness Of Breath/wheezing Albuterol/Ipratropium (Duoneb 3.0-0.5 Mg/3 Ml) 3 ml NEB QIDRT [facility] Last Admin: 07/02/17 07:34 Dose: 3 ml Folic Acid (Folic Acid) 1 mg PO DAILY [facility] Last Admin: 07/02/17 07:34 Dose: 1 mg Azithromycin 500 mg/ Sodium (Chloride) 250 mls @ 250 mls/hr IV DAILY@0800 [facility] Last Admin: 07/02/17 07:34 Dose: 250 mls/hr Sodium Chloride (Normal Saline) 1,000 mls @ 80 mls/hr IV ASDIRECTED [facility] Last Admin: 07/01/17 23:50 Dose: 80 mls/hr Ibuprofen (Motrin) 600 mg PO Q6H PRN PRN Reason: Pain (mild 1-3) Last Admin: 07/02/17 08:06 Dose: 600 mg Meropenem (Merrem) 1 gm IVPUSH Q12H [facility] Last Admin: 07/02/17 07:39 Dose: 1 gm Methylprednisolone Sodium Succinate (Solu-Medrol) 62.5 mg IVPUSH Q12H [facility] Last Admin: 07/02/17 07:34 Dose: 62.5 mg Metoprolol Succinate (Toprol Xl) 50 mg PO DAILY [facility] Last Admin: 07/02/17 07:34 Dose: 50 mg Morphine Sulfate (Morphine) 2 mg IVPUSH Q2H PRN PRN Reason: Pain (severe 7-10) Last Admin: 06/28/17 22:18 Dose: 2 mg Ondansetron HCl (Zofran Odt) 4 mg PO Q6H PRN PRN Reason: nausea, able to take PO Oseltamivir Phosphate (Tamiflu) 75 mg PO BID [facility] Last Admin: 07/02/17 07:34 Dose: 75 mg Pantoprazole Sodium (Protonix) 40 mg PO DAILY [facility] Last Admin: 07/02/17 07:35 Dose: 40 mg Promethazine HCl/Codeine (Phenergan With Codeine) 5 - 10 ml PO Q6H PRN PRN Reason: Cough Last Admin: 07/01/17 23:51 Dose: 10 ml Discontinued Medications Acetaminophen (Tylenol Extra Strength) 1,000 mg PO ONETIME ONE Stop: 06/28/17 20:29 Last Admin: 06/28/17 20:35 Dose: 1,000 mg Hydrocodone Bitart/Acetaminophen ([place] 325-5 Mg) 1 tab PO Q4H PRN PRN Reason: Pain Last Admin: 06/29/17 20:58 Dose: 1 tab Albuterol/Ipratropium (Duoneb 3.0-0.5 Mg/3 Ml) 3 ml NEB ONETIME ONE Stop: 06/28/17 19:29 Last Admin: 06/28/17 19:30 Dose: 3 ml Azithromycin (Zithromax) Confirm Administered Dose 500 mg .ROUTE .STK-MED ONE Stop: 06/29/17 08:56 Last Admin: 06/29/17 08:55 Dose: Not Given Sodium Chloride (Normal Saline) 1,000 mls @ 1,000 mls/hr IV .BOLUS ONE Stop: 06/28/17 21:26 Last Admin: 06/28/17 20:35 Dose: 1,000 mls/hr Sodium Chloride (Normal Saline) 1,000 mls @ 80 mls/hr IV ASDIRECTED [facility] Stop: 06/30/17 08:00 Last Admin: 06/30/17 07:40 Dose: 125 mls/hr Meropenem (Merrem) 1 gm IVPUSH Q8H [facility] Last Admin: 06/29/17 09:59 Dose: Not Given Metoprolol Succinate (Toprol Xl) 50 mg PO ONETIME ONE Stop: 06/29/17 08:46 Last Admin: 06/29/17 08:51 Dose: 50 mg Non-Formulary Medication (Esomeprazole Magnesium [Esomeprazole Magnesium]) 40 mg PO DAILY [facility] Last Admin: 06/29/17 09:58 Dose: Not Given Non-Formulary Medication (Metoprolol Succinate [Toprol Xl 50mg]) 50 mg PO DAILY [facility] Last Admin: 06/29/17 09:59 Dose: Not Given Pantoprazole Sodium (Protonix) 40 mg PO ONETIME ONE Stop: 06/29/17 08:46 Last Admin: 06/29/17 08:51 Dose: 40 mg - Exam Quality Assessment: Reports: DVT Prophylaxis. Denies: Supplemental Oxygen General: Reports: Alert, Oriented, No Acute Distress Neck: Reports: Supple Lungs: Reports: Normal Respiratory Effort, Wheezing Cardiovascular: Reports: Regular Rate, Regular Rhythm Skin: Reports: Warm, Dry, Intact Neurological: Reports: No New Focal Deficit Psy/Mental Status: Reports: Alert, Normal Affect, Normal Mood *Q Meaningful Use (DIS) - VTE *Q VTE Criteria *Q: - Stroke *Q Stroke Criteria *Q: - AMI *Q AMI Criteria *Q:
== END 2017-07-02 09:30 | disposition home or self-care (01) | DRG 469 ==
LOC: CC.ED 19:08 → UNDOADMIN 20:40 → CC.MS 20:40
PROVIDERS: ADMIT Nurse Practitioner; ATTEND General Practice
DX: N17.9 Acute kidney failure, unspecified (principal); N18.9 Chronic kidney disease, unspecified; J10.00 Influenza due to other identified influenza virus with unspecified type of pneumonia; J21.9 Acute bronchiolitis, unspecified; I12.9 Hypertensive chronic kidney disease with stage 1 through stage 4 chronic kidney disease, or unspecified chronic kidney disease; M06.9 Rheumatoid arthritis, unspecified; Z98.84 Bariatric surgery status; Z79.899 Other long term (current) drug therapy; Z79.51 Long term (current) use of inhaled steroids
CPT/HCPCS: 36415; 71046; 80048; 80053; 81001; 82607; 82746; 83605; 85025; 86140; 86738; 87040; 87086; 87804; 94640; 96360; 99285; A9270-GY; J0456; J2185; J2270; J2930; J7030; J7050

== ENCOUNTER 2018-06-12 10:50 | Inpatient (IN) | payer BC ==
[2018-06-12 11:30] LABS: CHLORIDE,CL 107 mEq/L (98-106); SODIUM,NA 142 mEq/L (136-145)
[2018-06-12] MEDS ORDERED: Albuterol/Ipratropium 3.0-0.5 MG/3 ML Neb Soln INH ONE (11:30)
[2018-06-12] MEDS ORDERED: Sodium Chloride 0.9% 500 ML IV ONE (13:27)
[2018-06-12] MEDS ORDERED: Ondansetron 4 MG/2 ML SDV IV PRN (13:27)
[2018-06-12] MEDS ORDERED: Albuterol/Ipratropium 3.0-0.5 MG/3 ML Neb Soln NEB PRN (13:27)
[2018-06-12] MEDS ORDERED: Docusate Sodium 100 MG Cap PO PRN (13:27)
[2018-06-12] MEDS: Albuterol/Ipratropium 3.0-0.5 MG/3 ML Neb Soln NEB SCH ×2 (14:00→19:40)
[2018-06-12] MEDS: cefTRIAXone 1 GM Vial IVPUSH SCH (14:21)
[2018-06-12] MEDS: Azithromycin 500 MG in Sodium Chloride 0.9% 250 ML IV SCH (14:23)
[2018-06-12] MEDS: Enoxaparin 30 MG/0.3 ML Syringe SUBCUT SCH (14:24)
[2018-06-12] MEDS: Acetaminophen 325 MG Tab PO PRN (14:33)
[2018-06-12] MEDS: Oseltamivir 6 MG/ML Susp 60 ML Bot PO SCH (15:35)
[2018-06-12] MEDS: Sodium Chloride 0.9% 1,000 ML IV SCH ×2 (16:26→22:54)
[2018-06-12] MEDS: Ibuprofen 200 MG Tab PO PRN (19:40)
[2018-06-12] MEDS ORDERED: Oseltamivir 75 MG Cap PO SCH (20:00)
[2018-06-13] MEDS: Albuterol/Ipratropium 3.0-0.5 MG/3 ML Neb Soln NEB SCH ×3 (07:37→20:20)
[2018-06-13] MEDS: Oseltamivir 6 MG/ML Susp 60 ML Bot PO SCH (07:38)
[2018-06-13] MEDS: Folic Acid 1 MG Tab PO SCH (07:38)
[2018-06-13] MEDS: Pantoprazole 40 MG Tab.CR PO SCH (07:38)
[2018-06-13] MEDS: Multivitamin Tab PO SCH (07:38)
[2018-06-13] MEDS: Metoprolol Succinate 25 MG Tab.ER PO SCH (07:38)
[2018-06-13] MEDS: oxyCODONE ER 10 MG TAB.ER PO PRN ×2 (07:39→22:05)
[2018-06-13] MEDS: Cholecalciferol (Vitamin D3) 1,000 Unit Tab PO SCH (07:40)
[2018-06-13] MEDS: Enoxaparin 30 MG/0.3 ML Syringe SUBCUT SCH (13:15)
[2018-06-13] MEDS: Azithromycin 500 MG in Sodium Chloride 0.9% 250 ML IV SCH (13:15)
[2018-06-13] MEDS: cefTRIAXone 1 GM Vial IVPUSH SCH (13:16)
--- NOTE | 2018-06-13 13:56 | PCM.PN ---
- General Info Date of Service: 06/13/18 Functional Status: Reports: Pain Controlled, Tolerating Diet, Ambulating - Review of Systems General: Reports: Fever, Weakness (generally), Fatigue, Malaise, Appetite ( decreased) HEENT: Reports: Headaches, Post Nasal Drip, Sinus Congestion Pulmonary: Reports: Shortness of Breath, Cough. Denies: Sputum Cardiovascular: Reports: No Symptoms Gastrointestinal: Reports: No Symptoms Genitourinary: Reports: No Symptoms Musculoskeletal: Reports: Other (body aches) Skin: Reports: No Symptoms Neurological: Reports: Headache Psychiatric: Reports: No Symptoms - Patient Data Vitals - Most Recent: Last Vital Signs Temp 97.6 F 06/13/18 11:47 Pulse 74 06/13/18 11:47 Resp 16 06/13/18 11:47 BP 97/53 L 06/13/18 11:47 Pulse Ox 96 06/13/18 11:47 Weight - Most Recent: 170 lb I&O - Last 24 Hours: Intake & Output 06/12/18 06/13/18 06/13/18 22:59 06:59 14:59 Intake Total 485 Balance 485 Lab Results Last 24 Hours: Laboratory Results - last 24 hr 06/13/18 06/13/18 Range/Units 07:15 07:20 WBC 23.1 H* (5.0-10.0) 10^3/uL RBC 2.96 L (4.00-5.50) 10^6/uL Hgb 9.1 L (12.0-16.0) g/dL Hct 28.1 L (37.0-47.0) % MCV 94.9 H (82.0-94.0) fL MCH 30.7 (27.0-32.0) pg MCHC 32.4 L (33.0-38.0) g/dL RDW Coeff of Radha 14.7 (11.0-15.0) % Plt Count 272 (150-400) 10^3/uL Add Manual Diff Yes Neutrophils % (Manual) 65 (35-85) % Band Neutrophils % 18 H (0-5) % Lymphocytes % (Manual) 11 L (21-55) % Monocytes % (Manual) 4 (2-12) % Eosinophils % (Manual) 2 (0-5) % Absolute Neutrophils 19.17 H (1.80-7.00) 10^3/uL Lymphocytes # (Manual) 2.54 (1.00-4.80) 10^3/uL Monocytes # (Manual) 0.92 H (0.00-0.80) 10^3/uL Eosinophils # (Manual) 0.46 H (0.00-0.45) 10^3/uL Platelet Estimate Adequate (ADEQUATE) Sodium 142 (136-145) mEq/L Potassium 3.6 (3.5-5.0) mEq/L Chloride 110 H (98-106) mEq/L Carbon Dioxide 21 (21-32) mmol/L BUN 33 H (7-18) mg/dL Creatinine 1.8 H (0.6-1.0) mg/dL Est Cr Clr Drug Dosing 32.15 mL/min Estimated GFR (MDRD) 29 L (>=60) mL/min Glucose 81 D (75-99) mg/dL Calcium 8.9 (8.4-10.1) mg/dL C-Reactive Protein 25.2 H (0.2-0.8) mg/dL Anastacio Results Last 24 Hours: Microbiology 06/12/18 11:02 Aerobic Blood Culture - Preliminary Blood NO GROWTH AFTER 1 DAY Anaerobic Blood Culture - Preliminary NO GROWTH AFTER 1 DAY 06/12/18 11:02 Influenza Type A Antigen Screen - Final Nasopharyngeal Swab NEGATIVE INFLUENZA A VIRUS AG Influenza Type B Antigen Screen - Final Positive Influenza B Ag Med Orders - Current: Current Medications Acetaminophen (Tylenol) 650 mg PO Q4H PRN PRN Reason: Pain (Mild 1-3)/fever Last Admin: 06/12/18 14:33 Dose: 650 mg Albuterol/Ipratropium (Duoneb 3.0-0.5 Mg/3 Ml) 3 ml NEB Q4H PRN PRN Reason: Shortness Of Breath/wheezing Albuterol/Ipratropium (Duoneb 3.0-0.5 Mg/3 Ml) 3 ml NEB TIDRT [facility] Last Admin: 06/13/18 13:15 Dose: 3 ml Ceftriaxone Sodium (Rocephin) 1 gm IVPUSH Q24H [facility] Last Admin: 06/13/18 13:16 Dose: 1 gm Cholecalciferol (Vitamin D3) 1,000 units PO DAILY [facility] Last Admin: 06/13/18 07:40 Dose: 1,000 units Docusate Sodium (Colace) 100 mg PO BID PRN PRN Reason: Constipation Enoxaparin Sodium (Lovenox) 30 mg SUBCUT Q24H [facility] Last Admin: 06/13/18 13:15 Dose: 30 mg Folic Acid (Folic Acid) 1 mg PO DAILY [facility] Last Admin: 06/13/18 07:38 Dose: 1 mg Azithromycin 500 mg/ Sodium (Chloride) 250 mls @ 250 mls/hr IV Q24H [facility] Last Admin: 06/13/18 13:15 Dose: 250 mls/hr Ibuprofen (Motrin) 600 mg PO Q6H PRN PRN Reason: Pain (mild 1-3) Last Admin: 06/12/18 19:40 Dose: 600 mg Metoprolol Succinate (Toprol Xl) 50 mg PO DAILY [facility] Last Admin: 06/13/18 07:38 Dose: 50 mg Multivitamins/Minerals/Vitamin C (Tab-A-Abdirahman) 1 tab PO DAILY [facility] Last Admin: 06/13/18 07:38 Dose: 1 tab Ondansetron HCl (Zofran) 4 mg IV Q6H PRN PRN Reason: Nausea/Vomiting Oseltamivir Phosphate (Tamiflu) 30 mg PO DAILY [facility] Last Admin: 06/13/18 07:38 Dose: 30 mg Oxycodone HCl (Oxycontin) 10 mg PO BID PRN PRN Reason: Pain (moderate 4-6) Last Admin: 06/13/18 07:39 Dose: 10 mg Pantoprazole Sodium (Protonix) 40 mg PO DAILY [facility] Last Admin: 06/13/18 07:38 Dose: 40 mg Discontinued Medications Albuterol/Ipratropium (Duoneb 3.0-0.5 Mg/3 Ml) 3 ml INH ONETIME ONE Stop: 06/12/18 11:31 Last Admin: 06/12/18 12:04 Dose: 3 ml Sodium Chloride (Normal Saline) 500 mls @ 500 mls/hr IV .BOLUS ONE Stop: 06/12/18 14:26 Last Admin: 06/12/18 14:22 Dose: 500 mls/hr Sodium Chloride (Normal Saline) 1,000 mls @ 75 mls/hr IV ASDIRECTED [facility] Stop: 06/13/18 12:00 Last Admin: 06/12/18 22:54 Dose: 75 mls/hr Oseltamivir Phosphate (Tamiflu) 75 mg PO BID [facility]AYY Stop: 06/17/18 01:00 - Exam General: Alert, Oriented, Cooperative, No Acute Distress HEENT: Pupils Equal, Pupils Reactive, Mucous Membr. Moist/[place] Neck: Supple, Trachea Midline, No JVD, No Thyromegaly Lungs: Normal Respiratory Effort, Decreased Breath Sounds (mildly throughout), Crackles (lower left lobe) Cardiovascular: Regular Rate, Regular Rhythm GI/Abdominal Exam: Normal Bowel Sounds, Soft, Non-Tender, No Organomegaly, No Distention, No Abnormal Bruit, No Mass, Pelvis Stable Back Exam: Normal Inspection, Full Range of Motion. No: CVA Tenderness (L), CVA Tenderness (R) Extremities: Normal Inspection, Normal Range of Motion, Non-Tender, No Pedal Edema, Normal Capillary Refill Peripheral Pulses: 2+: Radial (L), Radial (R), Posterior Tibial (L), Posterior Tibial (R), Dorsalis Pedis (L), Dorsalis Pedis (R) Skin: Warm, Dry, Intact Neurological: No New Focal Deficit, Normal Gait, Normal Speech Psy/Mental Status: Alert, Normal Affect, Normal Mood - Problem List Review Problem List Initiated/Reviewed/Updated: Yes - My Orders Last 24 Hours: My Active Orders 06/12/18 13:07 Resuscitation Status Routine 06/12/18 13:27 Patient Status [ADT] Routine Notify Provider Vital Signs [RC] .PRN Oxygen Therapy [RC] .PRN RT Aerosol Therapy [RC] 0800,1400,2000 Up With Assistance [RC] .PRN Vital Signs [RC] 0000,0400,0800,1200,1600,2000 CULTURE SPUTUM + SMEAR [RM] Stat Acetaminophen [Tylenol] 650 mg PO Q4H PRN Albuterol/Ipratropium [DuoNeb 3.0-0.5 MG/3 ML] 3 ml NEB Q4H PRN Docusate Sodium [Colace] 100 mg PO BID PRN Ibuprofen [Motrin] 600 mg PO Q6H PRN Ondansetron [Zofran] 4 mg IV Q6H PRN oxyCODONE ER [OxyCONTIN] 10 mg PO BID PRN Antiembolic Hose [OM.PC] Per Unit Routine 06/12/18 13:30 Azithromycin [Zithromax] 500 mg Sodium Chloride 0.9% [Normal Saline] 250 ml IV Q24H cefTRIAXone [Rocephin] 1 gm IVPUSH Q24H 06/12/18 14:00 Albuterol/Ipratropium [DuoNeb 3.0-0.5 MG/3 ML] 3 ml NEB TIDRT Enoxaparin [Lovenox] 30 mg SUBCUT Q24H 06/12/18 15:00 Oseltamivir [Tamiflu] 30 mg PO DAILY 06/12/18 19:19 Isolation [COMM] Routine 06/12/18 Dinner 2 Gram Sodium Diet [DIET] 06/13/18 08:00 Cholecalciferol (Vitamin D3) [Vitamin D3] 1,000 units PO DAILY Folic Acid 1 mg PO DAILY Metoprolol Succinate [Toprol XL] 50 mg PO DAILY Multivitamins [Tab-A-Abdirahman] 1 tab PO DAILY Pantoprazole [ProTONIX] 40 mg PO DAILY 06/13/18 14:00 HEMOGLOBIN/HEMATOCRIT,HH [HEME] Routine 06/14/18 05:00 BASIC METABOLIC PANEL,BMP [CHEM] DAILY C-REACTIVE PROTEIN [CHEM] DAILY CBC WITH AUTO DIFF [HEME] DAILY 06/15/18 05:00 BASIC METABOLIC PANEL,BMP [CHEM] DAILY C-REACTIVE PROTEIN [CHEM] DAILY CBC WITH AUTO DIFF [HEME] DAILY 06/16/18 05:00 BASIC METABOLIC PANEL,BMP [CHEM] DAILY C-REACTIVE PROTEIN [CHEM] DAILY CBC WITH AUTO DIFF [HEME] DAILY - Plan Plan:: This patient is a 52 year old female that was admitted from clinic yesterday for influenza and pneumonia. Patient today reports that she is feeling better than she was yesterday, but still feels week, short of breath, and run down. The patient rpeorts that she continues to have a nonproductive cough and chest congestion. The patient reprots that she has a continued headache as well in the front of her head across both sides. The patient is alert and oriented. Her labs yesterday were wbc 20.9, hgb 10.7, Bands 23, Potassium 3.3, Chloride 107, BUN 38, CR 2.6. Today, her labs are wbc 23.1, Hgb 9.1, Bands 18, Potassium 3.6, Chloride 110, BUN 33, CR 1.8, CRP 25.2. Her WBC has increased a little, but her bands have decreased today. Alos, her rneal function CR is improved from yesterday as well. I have noticed that her HGB has decreased to 9.1 today. The patient denies dizziness, lightheadedness, chest pain, increase shortness of breath, pallor, and bleeding in bowel or urine, or vomiting. I have asked for an H&H to be redrawn today to check this again. She is not hypotensive or tachycardic. Will continue to admit patient on IV abx, breathing tx, and Tamiflu. Will continue to monitor her labs.
--- NOTE | 2018-06-13 16:57 | PCM.SN ---
- Free Text/Narrative Note: The patient repeat HGB is 9.0. Last draw this morning was 9.1. The HGB is currently stable and has not dropped since this morning. The patient has no complaints of pallor, dizziness, lightheaded, syncope. Labs will be drawn again in the morning.
[2018-06-13] MEDS: Ibuprofen 200 MG Tab PO PRN (17:35)
[2018-06-14] MEDS: Metoprolol Succinate 25 MG Tab.ER PO SCH (08:06)
[2018-06-14] MEDS: Cholecalciferol (Vitamin D3) 1,000 Unit Tab PO SCH (08:06)
[2018-06-14] MEDS: Multivitamin Tab PO SCH (08:06)
[2018-06-14] MEDS: Pantoprazole 40 MG Tab.CR PO SCH (08:06)
[2018-06-14] MEDS: Folic Acid 1 MG Tab PO SCH (08:06)
[2018-06-14] MEDS: Albuterol/Ipratropium 3.0-0.5 MG/3 ML Neb Soln NEB SCH ×3 (08:07→19:59)
[2018-06-14] MEDS: Ibuprofen 200 MG Tab PO PRN ×2 (08:09→20:03)
[2018-06-14] MEDS ORDERED: Iopamidol 612 MG/ML 100 ML Bottle IVPUSH ONE (10:13)
[2018-06-14] MEDS: oxyCODONE ER 10 MG TAB.ER PO PRN ×2 (10:14→23:05)
[2018-06-14] MEDS: Oseltamivir 6 MG/ML Susp 60 ML Bot PO SCH (10:58)
[2018-06-14] MEDS: cefTRIAXone 1 GM Vial IVPUSH SCH (14:03)
[2018-06-14] MEDS: Enoxaparin 30 MG/0.3 ML Syringe SUBCUT SCH (14:03)
[2018-06-14] MEDS: Azithromycin 500 MG in Sodium Chloride 0.9% 250 ML IV SCH (14:06)
--- NOTE | 2018-06-14 19:38 | PCM.PN ---
- General Info Date of Service: 06/14/18 Admission Dx/Problem (Free Text): Influenza B Functional Status: Reports: Pain Controlled, Tolerating Diet. Denies: Ambulating - Review of Systems General: Reports: Fatigue, Malaise. Denies: Fever HEENT: Reports: Rhinitis Pulmonary: Reports: Shortness of Breath, Cough, Wheezing. Denies: Sputum Cardiovascular: Denies: Chest Pain, Edema Gastrointestinal: Reports: No Symptoms Genitourinary: Reports: No Symptoms Musculoskeletal: Reports: No Symptoms Skin: Reports: No Symptoms Neurological: Reports: Headache - Patient Data Vitals - Most Recent: Last Vital Signs Temp 97.5 F 06/14/18 16:00 Pulse 83 06/14/18 16:00 Resp 18 06/14/18 16:00 BP 130/77 06/14/18 16:00 Pulse Ox 97 06/14/18 16:00 Weight - Most Recent: 170 lb Lab Results Last 24 Hours: Laboratory Results - last 24 hr 06/14/18 06/14/18 Range/Units 07:00 07:00 WBC 19.2 H (5.0-10.0) 10^3/uL RBC 2.84 L (4.00-5.50) 10^6/uL Hgb 8.6 L (12.0-16.0) g/dL Hct 27.1 L (37.0-47.0) % MCV 95.4 H (82.0-94.0) fL MCH 30.3 (27.0-32.0) pg MCHC 31.7 L (33.0-38.0) g/dL RDW Coeff of Radha 14.9 (11.0-15.0) % Plt Count 275 (150-400) 10^3/uL Neut % (Auto) 88.7 H (35-85) % Lymph % (Auto) 5.3 L (10-55) % Barton % (Auto) 4.7 (0-16) % Eos % (Auto) 1.2 (0-5) % Baso % (Auto) 0.1 (0-3) % Neut # (Auto) 17.02 H (1.80-7.00) 10^3/uL Lymph # (Auto) 1.01 (1.00-4.80) 10^3/uL Barton # (Auto) 0.90 H (0.00-0.80) 10^3/uL Eos # (Auto) 0.23 (0.00-0.45) 10^3/uL Baso # (Auto) 0.02 10^3/uL Sodium 144 (136-145) mEq/L Potassium 4.0 (3.5-5.0) mEq/L Chloride 111 H (98-106) mEq/L Carbon Dioxide 22 (21-32) mmol/L BUN 21 H (7-18) mg/dL Creatinine 1.3 H (0.6-1.0) mg/dL Est Cr Clr Drug Dosing 44.52 mL/min Estimated GFR (MDRD) 43 L (>=60) mL/min Glucose 101 H (75-99) mg/dL Calcium 8.8 (8.4-10.1) mg/dL C-Reactive Protein 23.6 H (0.2-0.8) mg/dL NT-Pro-B Natriuret Pep 2237 H (0-1000) pg/mL Anastacio Results Last 24 Hours: Microbiology 06/14/18 11:10 Gram Stain - Final Sputum - Expectorated 06/12/18 11:02 Aerobic Blood Culture - Preliminary Blood NO GROWTH AFTER 2 DAYS Anaerobic Blood Culture - Preliminary NO GROWTH AFTER 2 DAYS Med Orders - Current: Current Medications Acetaminophen (Tylenol) 650 mg PO Q4H PRN PRN Reason: Pain (Mild 1-3)/fever Last Admin: 06/12/18 14:33 Dose: 650 mg Albuterol/Ipratropium (Duoneb 3.0-0.5 Mg/3 Ml) 3 ml NEB Q4H PRN PRN Reason: Shortness Of Breath/wheezing Albuterol/Ipratropium (Duoneb 3.0-0.5 Mg/3 Ml) 3 ml NEB TIDRT [facility] Last Admin: 06/14/18 14:03 Dose: 3 ml Ceftriaxone Sodium (Rocephin) 1 gm IVPUSH Q24H [facility] Last Admin: 06/14/18 14:03 Dose: 1 gm Cholecalciferol (Vitamin D3) 1,000 units PO DAILY [facility] Last Admin: 06/14/18 08:06 Dose: 1,000 units Docusate Sodium (Colace) 100 mg PO BID PRN PRN Reason: Constipation Enoxaparin Sodium (Lovenox) 30 mg SUBCUT Q24H [facility] Last Admin: 06/14/18 14:03 Dose: 30 mg Folic Acid (Folic Acid) 1 mg PO DAILY [facility] Last Admin: 06/14/18 08:06 Dose: 1 mg Azithromycin 500 mg/ Sodium (Chloride) 250 mls @ 250 mls/hr IV Q24H [facility] Last Admin: 06/14/18 14:06 Dose: 250 mls/hr Ibuprofen (Motrin) 600 mg PO Q6H PRN PRN Reason: Pain (mild 1-3) Last Admin: 06/14/18 08:09 Dose: 600 mg Metoprolol Succinate (Toprol Xl) 50 mg PO DAILY [facility] Last Admin: 06/14/18 08:06 Dose: 50 mg Multivitamins/Minerals/Vitamin C (Tab-A-Abdirahman) 1 tab PO DAILY [facility] Last Admin: 06/14/18 08:06 Dose: 1 tab Ondansetron HCl (Zofran) 4 mg IV Q6H PRN PRN Reason: Nausea/Vomiting Oseltamivir Phosphate (Tamiflu) 30 mg PO DAILY [facility] Last Admin: 06/14/18 10:58 Dose: 30 mg Oxycodone HCl (Oxycontin) 10 mg PO BID PRN PRN Reason: Pain (moderate 4-6) Last Admin: 06/14/18 10:14 Dose: 10 mg Pantoprazole Sodium (Protonix) 40 mg PO DAILY [facility] Last Admin: 06/14/18 08:06 Dose: 40 mg Discontinued Medications Albuterol/Ipratropium (Duoneb 3.0-0.5 Mg/3 Ml) 3 ml INH ONETIME ONE Stop: 06/12/18 11:31 Last Admin: 06/12/18 12:04 Dose: 3 ml Sodium Chloride (Normal Saline) 500 mls @ 500 mls/hr IV .BOLUS ONE Stop: 06/12/18 14:26 Last Admin: 06/12/18 14:22 Dose: 500 mls/hr Sodium Chloride (Normal Saline) 1,000 mls @ 75 mls/hr IV ASDIRECTED [facility] Stop: 06/13/18 12:00 Last Admin: 06/12/18 22:54 Dose: 75 mls/hr Iopamidol (Isovue-300 (61%)) 100 ml IVPUSH ONETIME ONE Stop: 06/14/18 10:14 Last Admin: 06/14/18 10:45 Dose: 100 ml Oseltamivir Phosphate (Tamiflu) 75 mg PO BID JAYY Stop: 06/17/18 01:00 - Exam Quality Assessment: No: Supplemental Oxygen General: Alert, Oriented HEENT: Mucous Membr. Moist/[place] Neck: Supple Lungs: Rhonchi Cardiovascular: Regular Rate, Regular Rhythm GI/Abdominal Exam: Normal Bowel Sounds, Soft, Non-Tender Extremities: Normal Inspection, No Pedal Edema Skin: Warm, Dry Neurological: No New Focal Deficit - Problem List & Annotations (1) Influenza B SNOMED Code(s): 05506601 Code(s): J10.1 - FLU DUE TO OTH IDENT INFLUENZA VIRUS W OTH RESP MANIFEST Status: Acute Priority: High Current Visit: Yes (2) Pneumonitis SNOMED Code(s): 906739105 Code(s): J18.9 - PNEUMONIA, UNSPECIFIED ORGANISM Status: Acute Priority: High Current Visit: Yes - Problem List Review Problem List Initiated/Reviewed/Updated: Yes - My Orders Last 24 Hours: My Active Orders 06/14/18 09:54 Chest w Cont [CT] Routine - Assessment Assessment:: Influenza B Pneumonitis - Plan Plan:: This patient is a 52 year old female that was admitted from clinic yesterday for influenza and pneumonia. Patient today reports that she is feeling better than she was yesterday, but still feels week, short of breath, and run down. The patient rpeorts that she continues to have a nonproductive cough and chest congestion. The patient reprots that she has a continued headache as well in the front of her head across both sides. The patient is alert and oriented. Her labs yesterday were wbc 20.9, hgb 10.7, Bands 23, Potassium 3.3, Chloride 107, BUN 38, CR 2.6. Today, her labs are wbc 23.1, Hgb 9.1, Bands 18, Potassium 3.6, Chloride 110, BUN 33, CR 1.8, CRP 25.2. Her WBC has increased a little, but her bands have decreased today. Alos, her rneal function CR is improved from yesterday as well. I have noticed that her HGB has decreased to 9.1 today. The patient denies dizziness, lightheadedness, chest pain, increase shortness of breath, pallor, and bleeding in bowel or urine, or vomiting. I have asked for an H&H to be redrawn today to check this again. She is not hypotensive or tachycardic. Will continue to admit patient on IV abx, breathing tx, and Tamiflu. Will continue to monitor her labs. 06-14-2018 Patient admits to feeling better today. Is fatigued. States not sleeping well here. Has frequent nonproductive cough. Chest tight, rattly at times. Oxygen sats adequate on room air. Lung sounds show rhonchi scattered throughout but do clear well with cough. Does have continued headache, worse with cough. WBC improved to 19.2 today. CRP slightly improved to 23.6. Hemoglobin 8.6. Does havea history of anemia, typical hemoglobin ranges between 9 and 10. Will continue with Tamiflu, Rocephin and Zithromax. Due to persistent issues with pneumonia, will proceed with CT scan of chest with contrast. Possible discharge home tomorrow.
[2018-06-14] MEDS ORDERED: Ketorolac 30 MG/ML SDV IVPUSH ONE (20:58)
[2018-06-15] MEDS: Albuterol/Ipratropium 3.0-0.5 MG/3 ML Neb Soln NEB SCH (08:13)
[2018-06-15] MEDS: Pantoprazole 40 MG Tab.CR PO SCH (08:13)
[2018-06-15] MEDS: Metoprolol Succinate 25 MG Tab.ER PO SCH (08:14)
[2018-06-15] MEDS: Multivitamin Tab PO SCH (08:14)
[2018-06-15] MEDS: Folic Acid 1 MG Tab PO SCH (08:14)
[2018-06-15] MEDS: Cholecalciferol (Vitamin D3) 1,000 Unit Tab PO SCH (08:14)
[2018-06-15 08:15] VITALS: BP 142/86
[2018-06-15] MEDS: Oseltamivir 6 MG/ML Susp 60 ML Bot PO SCH (08:16)
[2018-06-15] MEDS: Acetaminophen 325 MG Tab PO PRN (08:16)
--- NOTE | 2018-06-15 21:28 | PCM.DCSUM1 ---
Discharge Summary - Hospital Course Free Text/Narrative:: Patient presented to Thursday clinic with ongoing sinus congestion, drainage and cough. Developed a deeper cough and fever over the last few days prior to admission. Lungs were noted to have crackles in the bases bilaterally. WBC high at 20.9 with left shift. Creatinine increased to 2.6. Influenza B was positive. Chest xray shows bilateral lower lobe infiltrates. Admitted and started on IV Zithromax and Rocephin, tamiflu. Start Neb treatments. Diagnosis: Stroke: No Modified [place] Scale: No Symptoms at All Modified Gian Scale Score: 0 - Discharge Data Discharge Date: 06/15/18 Discharge Disposition: Home, Self-Care 01 Condition: Good - Discharge Diagnosis/Problem(s) (1) Influenza B SNOMED Code(s): 62606986 ICD Code: J10.1 - FLU DUE TO OTH IDENT INFLUENZA VIRUS W OTH RESP MANIFEST Status: Acute Priority: Low (2) Pneumonitis SNOMED Code(s): 406086946 ICD Code: J18.9 - PNEUMONIA, UNSPECIFIED ORGANISM Status: Acute Priority : High - Patient Summary/Data Complications: none Hospital Course: Patient has had slow improvement during stay. She is now afebrile. Labs are slowly improving, WBC down to 10.3 this am. Hemoglobin stable at 9.3. CRP down to 18. Did have CT scan of chest yesterday, did show multifocal infectious process, greater in left lung. Is up and ambulating around room, tolerating well. Cough is dry, rarely nonproductive. Less wheezing noted. Occasional rhonchi. Resting better now. Will discharge home on Ceftin. Continue nebs for a week. Follow up with Judith in a week. - Patient Instructions Diet: Usual Diet as Tolerated Activity: As Tolerated - Discharge Plan *PRESCRIPTION DRUG MONITORING PROGRAM REVIEWED*: No *COPY OF PRESCRIPTION DRUG MONITORING REPORT IN PATIENT CARLOS: No Prescriptions/Med Rec: Cefuroxime Axetil [Ceftin] 250 mg PO BID #14 tablet Oseltamivir [Tamiflu] 30 mg PO DAILY #10 bottle Home Medications: Home Meds Acetaminophen [Tylenol] 325 mg PO ASDIRECTED PRN 09/02/13 [History] Cholecalciferol (Vitamin D3) [Vitamin D3] 1,000 unit PO DAILY 09/02/13 [History] Folic Acid 1 mg PO DAILY 09/02/13 [History] Multivitamin [Multi-Vitamin Daily] 1 each PO DAILY 09/02/13 [History] Metoprolol Succinate [Toprol XL 50mg] 50 mg PO DAILY 09/20/15 [History] Ondansetron 4 mg PO DAILY PRN 04/08/16 [History] Esomeprazole Magnesium 40 mg PO DAILY 01/04/17 [History] oxyCODONE HCl [Oxycontin] 10 mg PO BID PRN 01/13/17 [History] Albuterol/Ipratropium [DuoNeb 3.0-0.5 MG/3 ML] 3 ml NEB QIDRT PRN #20 neb [Rx] Ibuprofen [Advil] 600 mg PO Q6H PRN 06/12/18 [History] Cefuroxime Axetil [Ceftin] 250 mg PO BID #14 tablet 06/15/18 [Rx] Oseltamivir [Tamiflu] 30 mg PO DAILY #10 bottle 06/15/18 [Rx] Patient Handouts: Community-Acquired Pneumonia, Adult Referrals: Lola Atkinson PA [ED Midlevel Provider] - (Hospital follow up in 7 days ) - Discharge Summary/Plan Comment DC Time >30 min.: No - General Info Date of Service: 06/15/18 Admission Dx/Problem (Free Text: Influenza B Functional Status: Reports: Pain Controlled, Tolerating Diet, Ambulating - Review of Systems General: Reports: Weakness, Fatigue, Malaise. Denies: Fever HEENT: Reports: Rhinitis Pulmonary: Reports: Shortness of Breath, Cough. Denies: Sputum Cardiovascular: Denies: Chest Pain, Edema, Lightheadedness Gastrointestinal: Denies: Abdominal Pain, Nausea, Vomiting Genitourinary: Reports: No Symptoms Musculoskeletal: Reports: No Symptoms Skin: Reports: No Symptoms Neurological: Reports: Headache - Patient Data Vitals - Most Recent: Last Vital Signs Temp 98 F 06/15/18 08:00 Pulse 85 06/15/18 08:14 Resp 18 06/15/18 08:00 BP 142/86 H 06/15/18 08:14 Pulse Ox 95 06/15/18 08:00 Weight - Most Recent: 170 lb Lab Results - Last 24 hrs: Laboratory Results - last 24 hr 06/15/18 06/15/18 Range/Units 07:10 07:10 WBC 10.3 H (5.0-10.0) 10^3/uL RBC 3.09 L (4.00-5.50) 10^6/uL Hgb 9.3 L (12.0-16.0) g/dL Hct 29.5 L (37.0-47.0) % MCV 95.5 H (82.0-94.0) fL MCH 30.1 (27.0-32.0) pg MCHC 31.5 L (33.0-38.0) g/dL RDW Coeff of Radha 14.9 (11.0-15.0) % Plt Count 317 (150-400) 10^3/uL Neut % (Auto) 73.6 (35-85) % Lymph % (Auto) 17.5 (10-55) % Daniels % (Auto) 6.8 (0-16) % Eos % (Auto) 1.9 (0-5) % Baso % (Auto) 0.2 (0-3) % Neut # (Auto) 7.56 H (1.80-7.00) 10^3/uL Lymph # (Auto) 1.80 (1.00-4.80) 10^3/uL Daniels # (Auto) 0.70 (0.00-0.80) 10^3/uL Eos # (Auto) 0.20 (0.00-0.45) 10^3/uL Baso # (Auto) 0.02 10^3/uL Sodium 144 (136-145) mEq/L Potassium 3.8 (3.5-5.0) mEq/L Chloride 110 H (98-106) mEq/L Carbon Dioxide 23 (21-32) mmol/L BUN 14 (7-18) mg/dL Creatinine 1.2 H (0.6-1.0) mg/dL Est Cr Clr Drug Dosing 48.23 mL/min Estimated GFR (MDRD) 47 L (>=60) mL/min Glucose 92 (75-99) mg/dL Calcium 9.6 (8.4-10.1) mg/dL C-Reactive Protein 18.0 H (0.2-0.8) mg/dL NT-Pro-B Natriuret Pep 2016 H (0-1000) pg/mL CRISTINA Results - Last 24 hrs: Microbiology 06/12/18 11:02 Aerobic Blood Culture - Preliminary Blood NO GROWTH AFTER 3 DAYS Anaerobic Blood Culture - Preliminary NO GROWTH AFTER 3 DAYS 06/14/18 11:10 Gram Stain - Final Sputum - Expectorated Sputum Culture - Preliminary Med Orders - Current: Current Medications Discontinued Medications Acetaminophen (Tylenol) 650 mg PO Q4H PRN PRN Reason: Pain (Mild 1-3)/fever Last Admin: 06/15/18 08:16 Dose: 650 mg Albuterol/Ipratropium (Duoneb 3.0-0.5 Mg/3 Ml) 3 ml INH ONETIME ONE Stop: 06/12/18 11:31 Last Admin: 06/12/18 12:04 Dose: 3 ml Albuterol/Ipratropium (Duoneb 3.0-0.5 Mg/3 Ml) 3 ml NEB Q4H PRN PRN Reason: Shortness Of Breath/wheezing Albuterol/Ipratropium (Duoneb 3.0-0.5 Mg/3 Ml) 3 ml NEB TIDRT [facility] Last Admin: 06/15/18 08:13 Dose: 3 ml Ceftriaxone Sodium (Rocephin) 1 gm IVPUSH Q24H [facility] Last Admin: 06/14/18 14:03 Dose: 1 gm Cholecalciferol (Vitamin D3) 1,000 units PO DAILY [facility] Last Admin: 06/15/18 08:14 Dose: 1,000 units Docusate Sodium (Colace) 100 mg PO BID PRN PRN Reason: Constipation Enoxaparin Sodium (Lovenox) 30 mg SUBCUT Q24H [facility] Last Admin: 06/14/18 14:03 Dose: 30 mg Folic Acid (Folic Acid) 1 mg PO DAILY [facility] Last Admin: 06/15/18 08:14 Dose: 1 mg Azithromycin 500 mg/ Sodium (Chloride) 250 mls @ 250 mls/hr IV Q24H [facility] Last Admin: 06/14/18 14:06 Dose: 250 mls/hr Sodium Chloride (Normal Saline) 500 mls @ 500 mls/hr IV .BOLUS ONE Stop: 06/12/18 14:26 Last Admin: 06/12/18 14:22 Dose: 500 mls/hr Sodium Chloride (Normal Saline) 1,000 mls @ 75 mls/hr IV ASDIRECTED [facility] Stop: 06/13/18 12:00 Last Admin: 06/12/18 22:54 Dose: 75 mls/hr Ibuprofen (Motrin) 600 mg PO Q6H PRN PRN Reason: Pain (mild 1-3) Last Admin: 06/14/18 20:03 Dose: 600 mg Iopamidol (Isovue-300 (61%)) 100 ml IVPUSH ONETIME ONE Stop: 06/14/18 10:14 Last Admin: 06/14/18 10:45 Dose: 100 ml Ketorolac Tromethamine (Toradol) 30 mg IVPUSH ONETIME ONE Stop: 06/14/18 20:59 Last Admin: 06/14/18 21:39 Dose: 30 mg Metoprolol Succinate (Toprol Xl) 50 mg PO DAILY [facility] Last Admin: 06/15/18 08:14 Dose: 50 mg Multivitamins/Minerals/Vitamin C (Tab-A-Abdirahman) 1 tab PO DAILY [facility] Last Admin: 06/15/18 08:14 Dose: 1 tab Ondansetron HCl (Zofran) 4 mg IV Q6H PRN PRN Reason: Nausea/Vomiting Oseltamivir Phosphate (Tamiflu) 75 mg PO BID [facility] Stop: 06/17/18 01:00 Oseltamivir Phosphate (Tamiflu) 30 mg PO DAILY [facility] Last Admin: 06/15/18 08:16 Dose: 30 mg Oxycodone HCl (Oxycontin) 10 mg PO BID PRN PRN Reason: Pain (moderate 4-6) Last Admin: 06/14/18 23:05 Dose: 10 mg Pantoprazole Sodium (Protonix) 40 mg PO DAILY [facility] Last Admin: 06/15/18 08:13 Dose: 40 mg - Exam General: Reports: Alert, Oriented HEENT: Reports: Mucous Membr. Moist/[place] Neck: Reports: Supple Lungs: Reports: Clear to Auscultation, Normal Respiratory Effort Cardiovascular: Reports: Regular Rate, Regular Rhythm GI/Abdominal Exam: Normal Bowel Sounds, Soft, Non-Tender Back Exam: Reports: Normal Inspection, Full Range of Motion Extremities: Normal Inspection, No Pedal Edema Skin: Reports: Warm, Dry Neurological: Reports: No New Focal Deficit
== END 2018-06-15 10:00 | disposition home or self-care (01) | DRG 139 ==
LOC: CC.DI 10:50 → CC.MS 11:30 → UNDOADMIN 11:30 → CC.MS 13:07
PROVIDERS: ADMIT Nurse Practitioner; ATTEND Family Medicine
DX: J10.00 Influenza due to other identified influenza virus with unspecified type of pneumonia (principal); J18.9 Pneumonia, unspecified organism; D64.9 Anemia, unspecified; I12.9 Hypertensive chronic kidney disease with stage 1 through stage 4 chronic kidney disease, or unspecified chronic kidney disease; N18.9 Chronic kidney disease, unspecified; K21.9 Gastro-esophageal reflux disease without esophagitis; E03.9 Hypothyroidism, unspecified; M06.9 Rheumatoid arthritis, unspecified; I87.2 Venous insufficiency (chronic) (peripheral); Z88.1 Allergy status to other antibiotic agents; N28.9 Disorder of kidney and ureter, unspecified; Z79.899 Other long term (current) drug therapy
CPT/HCPCS: 36415; 71046; 71260; 80048; 80053; 83605; 83880; 85014; 85018; 85025; 86140; 87040; 87070; 87205; 87804; 94640; A9270-GY; J0456; J0696; J1650; J1885; J7030; J7050; J7620-GY; Q9967

== ENCOUNTER 2019-10-31 10:47 | Inpatient (IN) | payer BC ==
[2019-10-31] MEDS ORDERED: Pantoprazole 40 MG Vial IVPUSH SCH (14:00)
[2019-10-31] MEDS ORDERED: Sodium Chloride 0.9% 10 ML Syringe FLUSH PRN (14:03)
[2019-10-31] MEDS ORDERED: cefTRIAXone 1 GM in Sodium Chloride 0.9% 100 ML IV ONE (14:06)
[2019-10-31] MEDS ORDERED: Sodium Chloride 0.9% 1,000 ML IV ONE (14:12)
[2019-10-31 14:41] LABS: SODIUM,NA 138 mEq/L (136-145)
[2019-10-31 14:42] LABS: CHLORIDE,CL 104 mEq/L (98-106)
[2019-10-31] MEDS: Enoxaparin 30 MG/0.3 ML Syringe SUBCUT SCH (15:31)
[2019-10-31] MEDS: Acetaminophen 325 MG Tab PO PRN ×2 (16:06→23:53)
[2019-10-31] MEDS: Sodium Chloride 0.9% 1,000 ML IV SCH ×2 (17:59→19:45)
[2019-10-31] MEDS ORDERED: Albuterol/Ipratropium 3.0-0.5 MG/3 ML Neb Soln NEB PRN (19:48)
[2019-10-31] MEDS: fentaNYL 100 MCG/2 ML SDV IVPUSH PRN (20:20)
[2019-11-01] MEDS: Cholecalciferol (Vitamin D3) 25 MCG Tab PO SCH (07:33)
[2019-11-01] MEDS: Pantoprazole 40 MG Vial IVPUSH SCH ×2 (07:33→19:29)
[2019-11-01] MEDS: Folic Acid 1 MG Tab PO SCH (07:33)
[2019-11-01] MEDS ORDERED: Metoprolol Succinate 25 MG Tab.ER PO SCH (08:00)
[2019-11-01] MEDS: Acetaminophen 325 MG Tab PO PRN ×2 (08:12→16:54)
[2019-11-01] MEDS: Sodium Chloride 0.9% 1,000 ML IV SCH ×2 (08:51→20:33)
--- NOTE | 2019-11-01 12:23 | PN ---
DATE: 11/01/2019 S: Ms. Sharif was admitted for what was suspected to be urosepsis with a markedly elevated white count. Initially, a slightly elevated lactic acid and a positive urine. We are still waiting on blood and urine culture. She was a little hypotensive. Started on IV Rocephin by Valerie Rivera. When she did come in, she had a creatinine of 3.5, it is down to 3. Electrolytes look like they are fine now. Her white count is improved and her CRP is still elevated around 45. She feels much better. O: VITAL SIGNS: Her blood pressure is running anywhere from 100 to 120 systolic. She is afebrile and has not been tachycardic. GENERAL: On exam, she does not look like she is in any significant distress. HEENT: Grossly benign. NECK: Supple. Veins appear flat. LUNGS: Lung sounds are clear. CARDIAC: Tones are regular. ABDOMEN: Soft. She has no CVA or suprapubic pain to palpation. EXTREMITIES: No peripheral edema. No cellulitis is seen. ASSESSMENT: 1. SUSPECTED UROSEPSIS. 2. ACUTE RENAL INSUFFICIENCY. 3. MILD HYPOKALEMIA. 4. IRON-DEFICIENCY ANEMIA. P: The patient clinically looks improved. Her hemoglobin is down to 7.3, which is dilutional from all her fluids. She does have a chronic ongoing history of iron deficiency related to her gastric bypass. She at some point in the last 3 to 4 years has received IV iron with good results. We will get an iron panel and plan for that. She cannot apparently tolerate oral iron intake. We will continue with IV fluids, IV Rocephin. We should have a preliminary on her urine culture this morning. No other changes at this time. LYNN/KARIN /[id number]
[2019-11-01] MEDS: fentaNYL 100 MCG/2 ML SDV IVPUSH PRN ×2 (12:49→22:14)
[2019-11-01] MEDS ORDERED: cefTRIAXone 1 GM Vial IVPUSH SCH (15:00)
[2019-11-01] MEDS ORDERED: cefTRIAXone 1 GM in Sodium Chloride 0.9% 50 ML IVPUSH SCH (15:00)
[2019-11-01] MEDS ORDERED: cefTRIAXone 1 GM in Sodium Chloride 0.9% 100 ML IVPUSH SCH (15:01)
[2019-11-01] MEDS ORDERED: cefTRIAXone 1 GM in Sodium Chloride 0.9% 100 ML IV SCH (15:18)
[2019-11-01] MEDS ORDERED: Sodium Chloride 0.9% 100 ML IV ONE (15:30)
[2019-11-01] MEDS: Enoxaparin 30 MG/0.3 ML Syringe SUBCUT SCH (15:31)
[2019-11-01] MEDS ORDERED: Temazepam 15 MG Cap PO PRN (20:06)
[2019-11-02] MEDS: Acetaminophen 325 MG Tab PO PRN ×2 (02:25→19:41)
[2019-11-02] MEDS: Sodium Chloride 0.9% 1,000 ML IV SCH (06:24)
[2019-11-02] MEDS: Cholecalciferol (Vitamin D3) 25 MCG Tab PO SCH (07:30)
[2019-11-02] MEDS: Folic Acid 1 MG Tab PO SCH (07:30)
[2019-11-02] MEDS: Pantoprazole 40 MG Vial IVPUSH SCH ×2 (07:31→19:35)
[2019-11-02] MEDS: fentaNYL 100 MCG/2 ML SDV IVPUSH PRN ×3 (07:43→21:43)
[2019-11-02] MEDS ORDERED: Iron Sucrose Complex 200 MG in Sodium Chloride 0.9% 100 ML IV ONE (08:40)
--- NOTE | 2019-11-02 13:59 | PCM.PN ---
- General Info Date of Service: 11/02/19 Admission Dx/Problem (Free Text): UTI Functional Status: Reports: Pain Controlled, Tolerating Diet, Ambulating - Review of Systems General: Reports: Weakness, Fatigue, Malaise. Denies: Fever HEENT: Reports: No Symptoms Pulmonary: Reports: Cough. Denies: Shortness of Breath Cardiovascular: Denies: Chest Pain, Lightheadedness Gastrointestinal: Denies: Abdominal Pain, Nausea, Vomiting Genitourinary: Reports: Urgency Musculoskeletal: Reports: No Symptoms Skin: Reports: No Symptoms Neurological: Reports: Weakness - Patient Data Vitals - Most Recent: Last Vital Signs Temp 98.2 F 11/02/19 11:32 Pulse 79 11/02/19 11:32 Resp 16 11/02/19 11:32 BP 105/62 11/02/19 11:32 Pulse Ox 99 11/02/19 11:32 Weight - Most Recent: 200 lb I&O - Last 24 Hours: Intake & Output 11/01/19 11/02/19 11/02/19 22:59 06:59 14:59 Intake Total 3160 1585 800 Output Total 1950 600 500 Balance 1210 985 300 Lab Results Last 24 Hours: Laboratory Results - last 24 hr 11/01/19 11/02/19 11/02/19 Range/Units 07:00 06:50 06:50 WBC 19.5 H (5.0-10.0) 10^3/uL RBC 3.01 L (4.00-5.50) 10^6/uL Hgb 7.1 L* (12.0-16.0) g/dL Hct 23.7 L (37.0-47.0) % MCV 78.7 L (82.0-94.0) fL MCH 23.6 L (27.0-32.0) pg MCHC 30.0 L (33.0-38.0) g/dL RDW Coeff of Radha 18.8 H (11.0-15.0) % Plt Count 333 (150-400) 10^3/uL Neut % (Auto) 85.2 H (35-85) % Lymph % (Auto) 7.0 L (10-55) % [place] % (Auto) 6.8 (0-16) % Eos % (Auto) 0.9 (0-5) % Baso % (Auto) 0.1 (0-3) % Neut # (Auto) 16.66 H (1.80-7.00) 10^3/uL Lymph # (Auto) 1.36 (1.00-4.80) 10^3/uL [place] # (Auto) 1.33 H (0.00-0.80) 10^3/uL Eos # (Auto) 0.17 (0.00-0.45) 10^3/uL Baso # (Auto) 0.02 10^3/uL Sodium 139 (136-145) mEq/L Potassium 3.3 L (3.5-5.0) mEq/L Chloride 110 H (98-106) mEq/L Carbon Dioxide 18 L (21-32) mmol/L BUN 30 H (7-18) mg/dL Creatinine 2.1 H (0.6-1.0) mg/dL Est Cr Clr Drug Dosing 26.92 mL/min Estimated GFR (MDRD) 24 L (>=60) mL/min Glucose 72 L D (75-99) mg/dL Lactic Acid (0.4-2.0) mmol/L Calcium 8.3 L (8.4-10.1) mg/dL Iron <10 L (35-145) ug/dL TIBC N/a H (261-478) ug/dL Unsaturated IBC 218 (155-355) ug/dL Transferrin % Sat N/a H (20.0-50.0) % Ferritin 76 (11-307) ng/mL Total Bilirubin 0.2 (0.0-1.0) mg/dL AST 14 L (15-37) U/L ALT 12 (12-78) U/L Alkaline Phosphatase 114 (46-116) U/L C-Reactive Protein 41.8 H (0.2-0.8) mg/dL Total Protein 5.7 L (6.4-8.2) g/dL Albumin 1.9 L (3.4-5.0) g/dL 11/02/19 Range/Units 06:50 WBC (5.0-10.0) 10^3/uL RBC (4.00-5.50) 10^6/uL Hgb (12.0-16.0) g/dL Hct (37.0-47.0) % MCV (82.0-94.0) fL MCH (27.0-32.0) pg MCHC (33.0-38.0) g/dL RDW Coeff of Radha (11.0-15.0) % Plt Count (150-400) 10^3/uL Neut % (Auto) (35-85) % Lymph % (Auto) (10-55) % [place] % (Auto) (0-16) % Eos % (Auto) (0-5) % Baso % (Auto) (0-3) % Neut # (Auto) (1.80-7.00) 10^3/uL Lymph # (Auto) (1.00-4.80) 10^3/uL [place] # (Auto) (0.00-0.80) 10^3/uL Eos # (Auto) (0.00-0.45) 10^3/uL Baso # (Auto) 10^3/uL Sodium (136-145) mEq/L Potassium (3.5-5.0) mEq/L Chloride (98-106) mEq/L Carbon Dioxide (21-32) mmol/L BUN (7-18) mg/dL Creatinine (0.6-1.0) mg/dL Est Cr Clr Drug Dosing mL/min Estimated GFR (MDRD) (>=60) mL/min Glucose (75-99) mg/dL Lactic Acid 0.5 (0.4-2.0) mmol/L Calcium (8.4-10.1) mg/dL Iron (35-145) ug/dL TIBC (261-478) ug/dL Unsaturated IBC (155-355) ug/dL Transferrin % Sat (20.0-50.0) % Ferritin (11-307) ng/mL Total Bilirubin (0.0-1.0) mg/dL AST (15-37) U/L ALT (12-78) U/L Alkaline Phosphatase (46-116) U/L C-Reactive Protein (0.2-0.8) mg/dL Total Protein (6.4-8.2) g/dL Albumin (3.4-5.0) g/dL [place] Results Last 24 Hours: Microbiology 10/31/19 16:00 Urine Culture - Final Urine, Voided Escherichia Coli 10/31/19 14:35 Aerobic Blood Culture - Preliminary Blood - Venous - Lab Draw NO GROWTH AFTER 1 DAY Anaerobic Blood Culture - Preliminary NO GROWTH AFTER 1 DAY 10/31/19 14:30 Aerobic Blood Culture - Preliminary Blood - Venous NO GROWTH AFTER 1 DAY Anaerobic Blood Culture - Preliminary NO GROWTH AFTER 1 DAY Med Orders - Current: Current Medications Acetaminophen (Tylenol) 650 mg PO Q4H PRN PRN Reason: Pain (Mild 1-3)/fever Last Admin: 11/02/19 02:25 Dose: 650 mg Albuterol/Ipratropium (Duoneb 3.0-0.5 Mg/3 Ml) 3 ml NEB QIDRT PRN PRN Reason: Shortness of Breath Cholecalciferol (Vitamin D3) 25 mcg PO DAILY [facility] Last Admin: 11/02/19 07:30 Dose: 25 mcg Enoxaparin Sodium (Lovenox) 30 mg SUBCUT Q24H [facility] Last Admin: 11/01/19 15:31 Dose: 30 mg Fentanyl (Sublimaze) 25 mcg IVPUSH Q6H PRN PRN Reason: Pain Last Admin: 11/02/19 07:43 Dose: 25 mcg Folic Acid (Folic Acid) 1 mg PO DAILY [facility] Last Admin: 11/02/19 07:30 Dose: 1 mg Ceftriaxone Sodium 1 gm/ (Sodium Chloride) 100 mls @ 200 mls/hr IV Q24H [facility] Iron Sucrose 400 mg/ Sodium (Chloride) 270 mls @ 108 mls/hr IV ONETIME ONE Stop: 11/02/19 13:59 Last Admin: 11/02/19 11:19 Dose: 108 mls/hr Iron Sucrose 400 mg/ Sodium (Chloride) 270 mls @ 108 mls/hr IV ONETIME ONE Stop: 11/03/19 14:29 Metoprolol Succinate (Toprol Xl) 50 mg PO DAILY [facility] Last Admin: 11/01/19 09:49 Dose: Not Given Pantoprazole Sodium (Protonix Iv) 40 mg IVPUSH Q12H [facility] Last Admin: 11/02/19 07:31 Dose: 40 mg Sodium Chloride (Saline Flush) 10 ml FLUSH ASDIRECTED PRN PRN Reason: Keep Vein Open Temazepam (Restoril) 15 mg PO BEDTIME PRN PRN Reason: Sleep Last Admin: 11/01/19 22:14 Dose: 15 mg Discontinued Medications Ceftriaxone Sodium (Rocephin) 1 gm IVPUSH Q24H [facility] Last Admin: 11/01/19 17:07 Dose: Not Given Ceftriaxone Sodium 1 gm/ (Sodium Chloride) 100 mls @ 200 mls/hr IV STAT ONE Stop: 10/31/19 14:35 Last Admin: 10/31/19 15:31 Dose: 200 mls/hr Sodium Chloride (Normal Saline) 1,000 mls @ 500 mls/hr IV .BOLUS ONE Stop: 10/31/19 16:11 Last Admin: 10/31/19 15:31 Dose: 500 mls/hr Sodium Chloride (Normal Saline) 1,000 mls @ 100 mls/hr IV ASDIRECTED [facility] Last Admin: 11/02/19 06:24 Dose: 100 mls/hr Ceftriaxone Sodium 1 gm/ (Sodium Chloride) 50 mls @ 100 mls/hr IVPUSH Q24H [facility] Last Admin: 11/01/19 17:07 Dose: Not Given Ceftriaxone Sodium 1 gm/ (Sodium Chloride) 100 mls @ 200 mls/hr IVPUSH Q24H [facility] Last Admin: 11/01/19 17:07 Dose: Not Given Ceftriaxone Sodium 1 gm/ (Sodium Chloride) 100 mls @ 200 mls/hr IV Q24H [facility] Stop: 11/01/19 18:00 Last Admin: 11/01/19 15:32 Dose: 200 mls/hr Sodium Chloride (Normal Saline) 100 mls @ 100 mls/hr IV ONETIME ONE Stop: 11/01/19 16:29 Last Admin: 11/01/19 15:50 Dose: Not Given Iron Sucrose 200 mg/ Sodium (Chloride) 110 mls @ 400 mls/hr IV ONETIME ONE Stop: 11/02/19 08:55 Last Admin: 11/02/19 11:19 Dose: Not Given Pantoprazole Sodium (Protonix Iv) 40 mg IVPUSH Q12H [facility] Last Admin: 10/31/19 15:31 Dose: 40 mg - Exam General: Alert, Oriented HEENT: Mucous Membr. Moist/[place] Neck: Supple Lungs: Clear to Auscultation, Normal Respiratory Effort Cardiovascular: Regular Rate, Regular Rhythm GI/Abdominal Exam: Normal Bowel Sounds, Soft, Non-Tender Extremities: Normal Inspection, No Pedal Edema Skin: Warm, Dry Neurological: No New Focal Deficit Sepsis Event Note - Evaluation Sepsis Screening Result: No Definite Risk - Focused Exam Vital Signs: Vital Signs Temp Pulse Resp BP Pulse Ox 11/02/19 11:32 98.2 F 79 16 105/62 99 11/02/19 07:34 97.6 F 79 16 115/60 98 11/02/19 04:00 97.9 F 76 16 152/89 H 98 Date Exam was Performed: 11/02/19 Time Exam was Performed: 13:53 - Problem List & Annotations (1) UTI (urinary tract infection) SNOMED Code(s): 92613112 Code(s): N39.0 - URINARY TRACT INFECTION, SITE NOT SPECIFIED Status: Acute Priority: High Current Visit: Yes Qualifiers: Urinary tract infection type: acute cystitis (2) Acute on chronic renal failure SNOMED Code(s): 397215026 Code(s): N17.9 - ACUTE KIDNEY FAILURE, UNSPECIFIED; N18.9 - CHRONIC KIDNEY DISEASE, UNSPECIFIED Status: Acute Priority: High Current Visit: Yes Qualifiers: Chronic kidney disease stage: stage 4 (severe) (3) Leukocytosis SNOMED Code(s): 122487623, 984435102 Code(s): D72.829 - ELEVATED WHITE BLOOD CELL COUNT, UNSPECIFIED Status: Acute Priority: High Current Visit: Yes (4) Sepsis due to Escherichia coli with acute renal failure SNOMED Code(s): 757141781 Code(s): A41.51 - SEPSIS DUE TO ESCHERICHIA COLI [E. COLI]; R65.20 - SEVERE SEPSIS WITHOUT SEPTIC SHOCK; N17.9 - ACUTE KIDNEY FAILURE, UNSPECIFIED Status : Acute Priority: High Current Visit: Yes Qualifiers: Severe sepsis shock status: without septic shock (5) CRISTIANO (iron deficiency anemia) SNOMED Code(s): 88730501 Code(s): D50.9 - IRON DEFICIENCY ANEMIA, UNSPECIFIED Status: Acute Current Visit: Yes - Problem List Review Problem List Initiated/Reviewed/Updated: Yes - My Orders Last 24 Hours: My Active Orders 11/02/19 11:30 Iron Sucrose Complex [Venofer] 400 mg Sodium Chloride 0.9% [Normal Saline] 250 ml IV ONETIME 11/03/19 12:00 Iron Sucrose Complex [Venofer] 400 mg Sodium Chloride 0.9% [Normal Saline] 250 ml IV ONETIME - Assessment Assessment:: Sepsis associated with UTI due to e coli without septic shock Leukocytosis CRISTIANO - Plan Plan:: Patient is feeling better each day. Is up and ambulating, voiding well. Good appetite. Afebrile. Labs are slowly improving. WBC is down to 10.5, CRP still high at 41.8. Creatinine 2.1. hemoglobin has dropped more to 7.1. Iron studies show total iron of less than 10, ferritin 76. Blood pressure in good control to 115/60 today. Metoprolol has been held. Will stop IV fluids. Iron sucrose infusions to be done with dose today and tomorrow. Continue IV antibiotics. Probable discharge home tomorrow.
[2019-11-02] MEDS: Enoxaparin 30 MG/0.3 ML Syringe SUBCUT SCH (14:03)
[2019-11-02] MEDS: cefTRIAXone 1 GM in Sodium Chloride 0.9% 100 ML IV SCH (14:07)
[2019-11-03] MEDS: Cholecalciferol (Vitamin D3) 25 MCG Tab PO SCH (07:38)
[2019-11-03] MEDS: Folic Acid 1 MG Tab PO SCH (07:38)
[2019-11-03] MEDS: Pantoprazole 40 MG Vial IVPUSH SCH (07:38)
[2019-11-03] MEDS: fentaNYL 100 MCG/2 ML SDV IVPUSH PRN ×2 (11:06→17:02)
[2019-11-03] MEDS ORDERED: Sodium Chloride 0.9% 250 ML IV ONE (11:31)
--- NOTE | 2019-11-03 13:28 | PN ---
DATE: 11/03/2019 S: Ms. Sharif continues to do well. She feels markedly better. White count is back down to 8.3 and her CRP continues to improve. She has a creatinine now down to 1.6. She is off IV fluids. She is taking in oral intake without any problem. CRP is markedly better as well. We did get her iron levels back and her total iron was less than 10. She is getting her second iron infusion today. Hemoglobin, I am sure dilutionally, is down now to 6.6 from an initial on admit of 8.8. O: GENERAL: She is very pleasant, alert, and cooperative. She appears in no distress. She remains afebrile. HEENT: Grossly benign. NECK: Supple. Veins are flat. LUNGS: Her lungs sounds appear clear. CARDIAC: Tones are regular. ABDOMEN: Soft. No flank pain. EXTREMITIES: No peripheral edema. ASSESSMENT: 1. URINARY TRACT INFECTION. 2. ACUTE KIDNEY INJURY, IMPROVED. 3. CHRONIC RHEUMATOID ARTHRITIS. 4. IRON-DEFICIENCY ANEMIA, SEVERE WITH HISTORY OF GASTRIC BYPASS. P: The patient will get her Rocephin and iron today. I did talk to her about a transfusion as she is very tired and weak. Her hemoglobin is 6. She would like 1 unit of blood and I think that would be appropriate. She would like to go home and I think she is stable for that, that will happen later today. See discharge summary at a later time. LYNN/KARIN /[id number]
[2019-11-03] MEDS: cefTRIAXone 1 GM in Sodium Chloride 0.9% 100 ML IV SCH (14:22)
[2019-11-03] MEDS: Enoxaparin 30 MG/0.3 ML Syringe SUBCUT SCH (14:24)
[2019-11-03 15:35] VITALS: BP 112/64; PULSE 82
--- NOTE | 2019-11-03 19:44 | DISCH ---
ADMISSION DIAGNOSES: 1. Urinary tract infection. 2. Chronic renal insufficiency. DISCHARGE DIAGNOSIS: 1. URINARY TRACT INFECTION. 2. ACUTE KIDNEY INJURY, IMPROVED. 3. CHRONIC RENAL INSUFFICIENCY. 4. CHRONIC AND SEVERE IRON DEFICIENCY ANEMIA SECONDARY TO GASTRIC BYPASS. 5. RHEUMATOID ARTHRITIS. HISTORY: The patient presented to [facility] on the date of admission with weakness and was found to have a UTI. She had a markedly elevated creatinine, was anemic, and ultimately was put in the hospital for suspected sepsis with a urine pending. HOSPITAL COURSE: The patient was admitted. She had a CT of her chest due to a history of a lung abscess, which was negative. She was put on sepsis protocol, started on IV Rocephin, did not get vancomycin on admit due to her creatinine and suspicion that this was UTI. Subsequent urine culture showed E coli positive for cephalosporins. She was put on aggressive IV fluids for improving her renal function. By the time of discharge, her creatinine did come down from 3.8 to 1.8. Her infection counts and CRP are drastically improved as well. She really has not spiked any temp since admission and has really showed no signs of sepsis. Blood cultures were negative. The patient does have a hemoglobin of 8.8 on admit and dropped all the way down to 6.6. She is severely iron deficient related to her gastric bypass and she receives IV iron replacement and 1 unit of blood on the date of discharge. Overall, she has made a nice recovery. Her creatinine is back to approximately its baseline. She has had no fever. She is tolerating a full diet and feels comfortable going home. She will follow up with her primary, Valerie Rivera, next week for repeat lab work and urinalysis. She has gotten 4 doses of IV Rocephin. Tomorrow, she will start another 7 days of oral Ceftin. No other changes. COMPLICATIONS: During her stay were none. CONSULTATIONS: None. DISPOSITION: Discharged home. LYNN/KARIN /[id number]
== END 2019-11-03 17:45 | disposition home or self-care (01) | DRG 720 ==
LOC: CC.FCMC 10:47 → CC.MS 14:01 → UNDOADMIN 14:01 → CC.MS 14:03
PROVIDERS: ADMIT Physician Assistant Medical; ATTEND Family Medicine
PROC: 30233N1 Transfusion of Nonautologous Red Blood Cells into Peripheral Vein, Percutaneous Approach (ICD-10-PCS; principal; 2019-11-03)
DX: A41.51 Sepsis due to Escherichia coli [E. coli] (principal); N17.9 Acute kidney failure, unspecified; R65.20 Severe sepsis without septic shock; N18.4 Chronic kidney disease, stage 4 (severe); N39.0 Urinary tract infection, site not specified; D50.9 Iron deficiency anemia, unspecified; M06.9 Rheumatoid arthritis, unspecified; E87.6 Hypokalemia; I10 Essential (primary) hypertension; Z87.01 Personal history of pneumonia (recurrent); Z90.49 Acquired absence of other specified parts of digestive tract
CPT/HCPCS: 36415; 36430; 71046; 71250; 80053; 81001; 82728; 83540; 83550; 83605; 85025; 86140; 86850; 86900; 86901; 86920; 86922; 87040; 87086; 87088; 87186; A9270-GY; C9113; J0696; J1650; J1756; J3010; J7030; J7050; P9016

== ENCOUNTER 2020-03-06 07:12 | Emergency (ER) | payer BC ==
--- NOTE | 2020-03-06 08:32 | EDM.PDOC ---
ED HPI GENERAL MEDICAL PROBLEM - General Chief Complaint: General Stated Complaint: FALL Time Seen by Provider: 03/06/20 07:50 Source of Information: Reports: Patient History Limitations: Reports: No Limitations - History of Present Illness INITIAL COMMENTS - FREE TEXT/NARRATIVE: Padmini is a 54 yo female who presents to the ED with complaints of generalized weakness. States in the last 24 hours she has fallen 3 times. Admits to falling this morning on her left shoulder. Complains of left shoulder pain with movement and right ankle pain as well when she tries to bear weight. States she was seen last week for a cough and congestion in the clinic. Continues to have a cough but denies any fevers. States they thought it was allergies. Had Covid testing, which was negative last week. Continues to have a wet cough. Admits to similar symptoms in the past when she gets urinary tract infections. However, denies any urinary symptoms presently. Left Shoulder Pain Score (Numeric/FACES): 4 Right Ankle Pain Score (Numeric/FACES): 4 - Related Data Allergies Allergy/AdvReac Type Severity Reaction Status Date / Time No Known Allergies Allergy Verified 03/06/20 08:04 Home Meds: Home Meds Acetaminophen [Tylenol] 325 mg PO ASDIRECTED PRN 09/02/13 [History] Cholecalciferol (Vitamin D3) [Vitamin D3] 1,000 unit PO DAILY 09/02/13 [History] Folic Acid 1 mg PO DAILY 09/02/13 [History] Multivitamin [Multi-Vitamin Daily] 1 each PO DAILY 09/02/13 [History] Metoprolol Succinate [Toprol XL 50mg] 50 mg PO DAILY 09/20/15 [History] Ondansetron 4 mg PO DAILY PRN 04/08/16 [History] Esomeprazole Magnesium 40 mg PO DAILY 01/04/17 [History] Albuterol/Ipratropium [DuoNeb 3.0-0.5 MG/3 ML] 3 ml NEB QIDRT PRN #20 neb 07/02/17 [Rx] Torsemide 20 mg PO DAILY PRN 03/06/20 [History] Past Medical History Cardiovascular History: Reports: Hypertension Gastrointestinal History: Reports: GERD Genitourinary History: Reports: UTI, Recurrent 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: Musculoskeletal History: Reports: RA Endocrine/Metabolic History: Reports: Hypothyroidism Hematologic History: Reports: Anemia, Iron Deficiency, Other (See Below) Other Hematologic History: iron infusions - Infectious Disease History Infectious Disease History: Reports: Measles, Mumps - Past Surgical History GI Surgical History: Reports: Bariatric Procedure, Cholecystectomy, Colonoscopy, Other (See Below) Other GI Surgeries/Procedures: gastric bypass Female Surgical History: Reports: Hysterectomy Musculoskeletal Surgical History: Reports: None Social & Family History - Family History Family Medical History: Noncontributory - Tobacco Use Smoking Status *Q: Never Smoker - Caffeine Use Caffeine Use: Reports: Soda - Recreational Drug Use Recreational Drug Use: No ED ROS GENERAL - Review of Systems Review Of Systems: See Below Constitutional: Reports: Weakness, Fatigue. Denies: Fever HEENT: Reports: Rhinitis. Denies: Ear Pain, Sinus Problem, Throat Pain Respiratory: Reports: Shortness of Breath, Cough Cardiovascular: Reports: Dyspnea on Exertion, Edema. Denies: Chest Pain GI/Abdominal: Reports: No Symptoms : Reports: No Symptoms Musculoskeletal: Reports: Shoulder Pain, Foot Pain Skin: Reports: No Symptoms Neurological: Reports: No Symptoms Psychiatric: Reports: No Symptoms ED EXAM, GENERAL - Physical Exam Exam: See Below Exam Limited By: No Limitations General Appearance: Alert, Mild Distress Eye Exam: Bilateral Eye: EOMI, Normal Inspection Ears: Normal External Exam, Normal Canal, Hearing Grossly Normal, Normal TMs Nose: Normal Inspection, Normal Mucosa, No Blood Throat/Mouth: Normal Inspection, Normal Lips, Normal Teeth, Normal Gums, Normal Oropharynx, Normal Voice, No Airway Compromise Head: Atraumatic, Normocephalic Neck: Normal Inspection, Supple Respiratory/Chest: No Respiratory Distress, Crackles (diffuse right lobe), Rhonchi. No: Wheezing Cardiovascular: No Murmur, Tachycardia GI/Abdominal: Normal Bowel Sounds, Soft, Non-Tender, No Distention Extremities: Limited Range of Motion (unable to abduct left shoulder, tenderness with palpation to shoulder. Pain to anterior aspect of right ankle with plantar flexion of the foot. Negative anterior drawer. ) Neurological: Alert, Oriented, Normal Cognition, No Motor/Sensory Deficits Psychiatric: Normal Affect, Normal Mood Skin Exam: Warm, Dry, Intact, Normal Color, No Rash EKG INTERPRETATION EKG Date: 03/06/20 Rhythm: Other (sinus tachycardia) Rate (Beats/Min): 110 Comparison: NA - No Prior EKG Course - Vital Signs Last Recorded V/S: Last Vital Signs Temp 98 F 03/06/20 12:24 Pulse 86 03/06/20 12:24 Resp 16 03/06/20 12:24 BP 104/59 L 03/06/20 12:24 Pulse Ox 94 L 03/06/20 12:24 - Orders/Labs/Meds Orders: Active Orders 24 hr Category Date Time Status EKG Documentation Completion [RC] STAT Care 03/06/20 07:30 Active Ankle Min 3V Rt [CR] Stat Exams 03/06/20 08:12 Taken CXR [Chest 2V] [CR] Stat Exams 03/06/20 08:16 Taken Shoulder Comp Lt [CR] Stat Exams 03/06/20 08:12 Taken CULTURE BLOOD [BC] Stat Lab 03/06/20 09:25 Received CULTURE BLOOD [BC] Stat Lab 03/06/20 09:30 Received Potassium Chloride [KCL 20 MEQ in Water 100 ML] 20 meq Med 03/06/20 09:43 Active Premix Bag 1 bag IV ONETIME Sodium Chloride 0.9% [Normal Saline] 500 ml Med 03/06/20 09:45 Active IV ASDIRECTED Blood Culture x2 Reflex Set [OM.PC] Stat Oth 03/06/20 09:24 Ordered Medication Orders Potassium Chloride 20 meq/ (Premix) 100 mls @ 25 mls/hr IV ONETIME ONE Stop: 03/06/20 13:42 Last Admin: 03/06/20 10:26 Dose: 25 mls/hr Documented by: ANJALI Sodium Chloride (Normal Saline) 500 mls @ 100 mls/hr IV ASDIRECTED JAYY Last Admin: 03/06/20 10:26 Dose: 100 mls/hr Documented by: ANJALI Labs: Laboratory Tests 03/06/20 03/06/20 03/06/20 Range/Units 07:42 07:45 07:45 WBC 10.0 (5.0-10.0) 10^3/uL RBC 3.41 L (4.00-5.50) 10^6/uL Hgb 10.5 L (12.0-16.0) g/dL Hct 32.5 L (37.0-47.0) % MCV 95.3 H (82.0-94.0) fL MCH 30.8 (27.0-32.0) pg MCHC 32.3 L (33.0-38.0) g/dL RDW Coeff of Radha 14.6 (11.0-15.0) % Plt Count 282 (150-400) 10^3/uL Add Manual Diff Yes Neutrophils % (Manual) 61 (35-85) % Band Neutrophils % 28 H (0-5) % Lymphocytes % (Manual) 3 L (21-55) % Monocytes % (Manual) 8 (2-12) % D-Dimer, Quantitative (0.00-0.50) Sodium 140 (136-145) mEq/L Potassium 3.0 L (3.5-5.0) mEq/L Chloride 101 (98-106) mEq/L Carbon Dioxide 21 (21-32) mmol/L BUN 43 H D (7-18) mg/dL Creatinine 2.7 H* D (0.6-1.0) mg/dL Est Cr Clr Drug Dosing 20.09 mL/min Estimated GFR (MDRD) 18 L (>=60) mL/min Glucose 82 D (75-99) mg/dL Lactic Acid (0.4-2.0) mmol/L Calcium 8.6 (8.4-10.1) mg/dL Creatine Kinase 48 (21-215) U/L Troponin I 0.031 (0.00-0.06) ng/mL NT-Pro-B Natriuret Pep 5334 H (0-1000) pg/mL Urine Color (YELLOW) Urine Appearance (CLEAR) Urine pH (4.5-8.0) Ur Specific [place] (1.003-1.020) Urine Protein (NEGATIVE) mg/dL Urine Glucose (UA) (NEGATIVE) mg/dL Urine Ketones (NEGATIVE) mg/dL Urine Occult Blood (NEGATIVE) Urine Nitrite (NEGATIVE) Urine Bilirubin (NEGATIVE) Urine Urobilinogen (0.2-1.0) EU/dL Ur Leukocyte Esterase (NEGATIVE) Urine RBC (0-5) /HPF Urine WBC (0-5) /HPF Ur Epithelial Cells (NOT SEEN) /HPF SARS CoV-2 RNA Rapid WU Negative (NEGATIVE) 03/06/20 03/06/20 03/06/20 Range/Units 07:45 07:45 08:29 WBC (5.0-10.0) 10^3/uL RBC (4.00-5.50) 10^6/uL Hgb (12.0-16.0) g/dL Hct (37.0-47.0) % MCV (82.0-94.0) fL MCH (27.0-32.0) pg MCHC (33.0-38.0) g/dL RDW Coeff of Radha (11.0-15.0) % Plt Count (150-400) 10^3/uL Add Manual Diff Neutrophils % (Manual) (35-85) % Band Neutrophils % (0-5) % Lymphocytes % (Manual) (21-55) % Monocytes % (Manual) (2-12) % D-Dimer, Quantitative 26.81 H (0.00-0.50) Sodium (136-145) mEq/L Potassium (3.5-5.0) mEq/L Chloride (98-106) mEq/L Carbon Dioxide (21-32) mmol/L BUN (7-18) mg/dL Creatinine (0.6-1.0) mg/dL Est Cr Clr Drug Dosing mL/min Estimated GFR (MDRD) (>=60) mL/min Glucose (75-99) mg/dL Lactic Acid 1.4 (0.4-2.0) mmol/L Calcium (8.4-10.1) mg/dL Creatine Kinase (21-215) U/L Troponin I (0.00-0.06) ng/mL NT-Pro-B Natriuret Pep (0-1000) pg/mL Urine Color Yellow (YELLOW) Urine Appearance Clear (CLEAR) Urine pH 5.5 (4.5-8.0) Ur Specific [place] 1.020 (1.003-1.020) Urine Protein 30 H (NEGATIVE) mg/dL Urine Glucose (UA) Negative (NEGATIVE) mg/dL Urine Ketones Negative (NEGATIVE) mg/dL Urine Occult Blood Trace-intact H (NEGATIVE) Urine Nitrite Negative (NEGATIVE) Urine Bilirubin Negative (NEGATIVE) Urine Urobilinogen 0.2 (0.2-1.0) EU/dL Ur Leukocyte Esterase Negative (NEGATIVE) Urine RBC 0-5 (0-5) /HPF Urine WBC 10-20 H (0-5) /HPF Ur Epithelial Cells Moderate H (NOT SEEN) /HPF SARS CoV-2 RNA Rapid WU (NEGATIVE) Meds: Medications Generic Name Dose Route Start Last Admin Trade Name Freq PRN Reason Stop Dose Admin Potassium Chloride 20 meq/ 100 mls @ 25 mls/hr 03/06/20 09:43 03/06/20 10:26 Premix IV 03/06/20 13:42 25 mls/hr ONETIME ONE Administration Sodium Chloride 500 mls @ 100 mls/hr 03/06/20 09:45 03/06/20 10:26 Normal Saline IV 100 mls/hr ASDIRECTED JAYY Administration Discontinued Medications Generic Name Dose Route Start Last Admin Trade Name Deny PRN Reason Stop Dose Admin Ceftriaxone Sodium 1 gm 03/06/20 09:42 03/06/20 09:52 Rocephin IVPUSH 03/06/20 09:43 1 gm ONETIME ONE Administration Enoxaparin Sodium 60 mg 03/06/20 09:31 03/06/20 09:38 Lovenox SUBCUT 03/06/20 09:32 60 mg NOW STA Administration Enoxaparin Sodium 30 mg 03/06/20 09:31 03/06/20 09:38 Lovenox SUBCUT 03/06/20 09:32 30 mg NOW STA Administration Azithromycin 500 mg/ Sodium 250 mls @ 250 mls/hr 03/06/20 09:42 03/06/20 09:57 Chloride IV 03/06/20 10:41 250 mls/hr NOW STA Administration Departure - Departure Time of Disposition: 12:54 Disposition: DC/Tfer to [facility] 02 Clinical Impression: CHF, Congestive heart failure, Elevated d-dimer, Chronic kidney disease (CKD) Community acquired pneumonia of right lung Qualifiers: Lung location: unspecified part of lung Qualified Code(s): J18.9 - Pneumonia, unspecified organism - Discharge Information Referrals: Lola Atkinson PA [Primary Care Provider] - Forms: ED Department Discharge Sepsis Event Note (ED) - Evaluation Sepsis Screening Result: No Definite Risk - Focused Exam Vital Signs: Vital Signs Temp Pulse Resp BP Pulse Ox 03/06/20 12:24 98 F 86 16 104/59 L 94 L 03/06/20 10:38 98 F 90 16 105/58 L 95 03/06/20 10:00 102 H 94 L 03/06/20 09:02 93 L 03/06/20 09:01 89 L 03/06/20 08:59 91 L 03/06/20 08:58 87 L 03/06/20 08:57 92 L 03/06/20 08:50 100 16 100/52 L 95 03/06/20 07:40 104 H 16 94 L 03/06/20 07:15 112 H 18 94 L 03/06/20 07:12 98.1 F 114 H 20 125/68 77 L - Problem List & Annotations (1) CHF, Congestive heart failure SNOMED Code(s): 53678603 Code(s): I50.9 - HEART FAILURE, UNSPECIFIED Status: Acute Current Visit: Yes (2) Chronic kidney disease (CKD) SNOMED Code(s): 651353475 Code(s): N18.9 - CHRONIC KIDNEY DISEASE, UNSPECIFIED Status: Chronic Current Visit: Yes (3) Community acquired pneumonia of right lung SNOMED Code(s): 426866394 Code(s): J18.9 - PNEUMONIA, UNSPECIFIED ORGANISM Status: Acute Current Visit: Yes Qualifiers: Lung location: unspecified part of lung Qualified Code(s): J18.9 - Pneumonia, unspecified organism (4) Elevated d-dimer SNOMED Code(s): 246955193 Code(s): R79.89 - OTHER SPECIFIED ABNORMAL FINDINGS OF BLOOD CHEMISTRY Status: Acute Current Visit: Yes - My Orders Last 24 Hours: My Active Orders 03/06/20 07:30 EKG Documentation Completion [RC] STAT 03/06/20 08:12 Ankle Min 3V Rt [CR] Stat Shoulder Comp Lt [CR] Stat 03/06/20 08:16 CXR [Chest 2V] [CR] Stat 03/06/20 09:24 Blood Culture x2 Reflex Set [OM.PC] Stat 03/06/20 09:25 CULTURE BLOOD [BC] Stat 03/06/20 09:30 CULTURE BLOOD [BC] Stat 03/06/20 09:43 Potassium Chloride [KCL 20 MEQ in Water 100 ML] 20 meq Premix Bag 1 bag IV ONETIME 03/06/20 09:45 Sodium Chloride 0.9% [Normal Saline] 500 ml IV ASDIRECTED - Assessment/Plan Last 24 Hours: My Active Orders 03/06/20 07:30 EKG Documentation Completion [RC] STAT 03/06/20 08:12 Ankle Min 3V Rt [CR] Stat Shoulder Comp Lt [CR] Stat 03/06/20 08:16 CXR [Chest 2V] [CR] Stat 03/06/20 09:24 Blood Culture x2 Reflex Set [OM.PC] Stat 03/06/20 09:25 CULTURE BLOOD [BC] Stat 03/06/20 09:30 CULTURE BLOOD [BC] Stat 03/06/20 09:43 Potassium Chloride [KCL 20 MEQ in Water 100 ML] 20 meq Premix Bag 1 bag IV ONETIME 03/06/20 09:45 Sodium Chloride 0.9% [Normal Saline] 500 ml IV ASDIRECTED Plan: Consulted with hospitalist, Dr. Andersen, at [facility] in [place]. Dr. Andersen kindly accepted transfer once bed is available. IV antibiotics given while in extended ED. Oxygen saturation stable and mid 90's on 2 liter per nasal canula. Lovenox given initially with elevated d-dimer. Will undergo VQ study in [place]. Patient to be transferred via BLS. Spoke with in regards Padmini's condition. Cultures ordered prior to IV antibiotics. Risks and benefits of transfer discussed. Risks of transfer included MVA, worsening of condition. Benefits of transfer included proper imaging, hospitalist, specialty care. Risks of non transfer include worsening of condition, unable to perform complete work up. Benefits of nontransfer included staying close to home, familiar environment. Pt verbalized understanding of transfer via BLS and spoke to as well.
[2020-03-06] MEDS: Enoxaparin 60 MG/0.6 ML Syringe SUBCUT STA (09:38)
[2020-03-06] MEDS: Enoxaparin 30 MG/0.3 ML Syringe SUBCUT STA (09:38)
[2020-03-06] MEDS: cefTRIAXone 1 GM Vial IVPUSH ONE (09:52)
[2020-03-06] MEDS: Azithromycin 500 MG in Sodium Chloride 0.9% 250 ML IV STA (09:57)
[2020-03-06] MEDS: Potassium Chloride 20 MEQ in Premix Bag 1 BAG IV ONE (10:26)
[2020-03-06] MEDS: Sodium Chloride 0.9% 500 ML IV SCH (10:26)
[2020-03-06 12:24] VITALS: BP 104/59; PULSE 86
== END 2020-03-06 13:00 ==
LOC: CC.ED 07:12
DX: J18.9 Pneumonia, unspecified organism (principal); I13.0 Hypertensive heart and chronic kidney disease with heart failure and stage 1 through stage 4 chronic kidney disease, or unspecified chronic kidney disease; I50.9 Heart failure, unspecified; N18.9 Chronic kidney disease, unspecified; M25.512 Pain in left shoulder; M25.571 Pain in right ankle and joints of right foot; R79.1 Abnormal coagulation profile; K21.9 Gastro-esophageal reflux disease without esophagitis; Z90.49 Acquired absence of other specified parts of digestive tract; Z90.710 Acquired absence of both cervix and uterus; Z20.828 Contact with and (suspected) exposure to other viral communicable diseases; Z79.899 Other long term (current) drug therapy; W19.XXXA Unspecified fall, initial encounter
CPT/HCPCS: 36415; 71046; 73030-LT; 73610-RT; 80048; 81001; 82550; 83605; 83880; 84484; 85025; 85379; 87040; 87804; 93005; 96365; 96366; 96367; 96372; 96375; 99285-25; J0456; J0696; J1650; J3480; J7040; J7050; U0002

== ENCOUNTER 2020-09-25 22:51 | Emergency (ER) | payer BC ==
[2020-09-25] MEDS ORDERED: Metoprolol Tartrate 25 MG Tab PO ONE (23:16)
[2020-09-25 23:20] LABS: PTT,PARTIAL THROMBOPLSTIN TIME 26.4 SEC (23.2-32.3)
[2020-09-25 23:23] LABS: CHLORIDE,CL 103 mEq/L (98-106); SODIUM,NA 143 mEq/L (136-145)
[2020-09-26 00:33] VITALS: BP 175/90; PULSE 77
--- NOTE | 2020-09-26 00:38 | EDM.PDOC ---
ED HPI GENERAL MEDICAL PROBLEM - General Chief Complaint: General Stated Complaint: heart racing Time Seen by Provider: 09/25/20 23:14 Source of Information: Reports: Patient History Limitations: Reports: No Limitations - History of Present Illness INITIAL COMMENTS - FREE TEXT/NARRATIVE: Padmini is a 54 yo female who presents to the ED via private vehicle, accompanied by her , with concerns of her heart racing. She states she takes Oxycontin for her RA and took a dose around 1830 this evening and then had a couple drinks with supper. She admits it was [place] and realizes her palpitations are likely secondary to the mixture of her medication with alcohol. She states she feels embarressed. Admits since arrival it has improved. She reports that she felt her heart start to race around 2100 or 2130 this evening. Pt denies chest pain, dizziness, headache, SOB, nausea/vomiting. Her reports that pt has had an increase amount of stress lately as well. - Related Data Allergies Allergy/AdvReac Type Severity Reaction Status Date / Time No Known Allergies Allergy Verified 03/06/20 08:04 Home Meds: Home Meds Acetaminophen [Tylenol] 325 mg PO ASDIRECTED PRN 09/02/13 [History] Cholecalciferol (Vitamin D3) [Vitamin D3] 1,000 unit PO DAILY 09/02/13 [History] Folic Acid 1 mg PO DAILY 09/02/13 [History] Multivitamin [Multi-Vitamin Daily] 1 each PO DAILY 09/02/13 [History] Metoprolol Succinate [Toprol XL 50mg] 25 mg PO DAILY 09/20/15 [History] Ondansetron 4 mg PO DAILY PRN 04/08/16 [History] Esomeprazole Magnesium 40 mg PO DAILY 01/04/17 [History] Torsemide 20 mg PO DAILY PRN 03/06/20 [History] Levothyroxine [Synthroid] 50 mcg PO DAILY 09/25/20 [History] oxyCODONE HCl [Oxycontin] 10 mg PO TID PRN 09/25/20 [History] Past Medical History Cardiovascular History: Reports: Hypertension Gastrointestinal History: Reports: GERD Genitourinary History: Reports: UTI, Recurrent 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: Musculoskeletal History: Reports: RA Endocrine/Metabolic History: Reports: Hypothyroidism Hematologic History: Reports: Anemia, Iron Deficiency, Other (See Below) Other Hematologic History: iron infusions - Infectious Disease History Infectious Disease History: Reports: Measles - Past Surgical History GI Surgical History: Reports: Bariatric Procedure, Cholecystectomy, Colonoscopy, Other (See Below) Other GI Surgeries/Procedures: gastric bypass Female Surgical History: Reports: Hysterectomy Musculoskeletal Surgical History: Reports: None Social & Family History - Family History Family Medical History: No Pertinent Family History - Tobacco Use Tobacco Use Status *Q: Never Tobacco User - Caffeine Use Caffeine Use: Reports: Soda - Recreational Drug Use Recreational Drug Use: No ED ROS GENERAL - Review of Systems Review Of Systems: See Below Constitutional: Denies: Fever, Weakness, Diaphoresis HEENT: Reports: No Symptoms Respiratory: Reports: No Symptoms Cardiovascular: Reports: Blood Pressure Problem, Palpitations. Denies: Chest Pain, Lightheadedness, Syncope GI/Abdominal: Reports: No Symptoms : Reports: No Symptoms Musculoskeletal: Reports: No Symptoms Skin: Reports: No Symptoms Neurological: Reports: No Symptoms Psychiatric: Reports: No Symptoms ED EXAM, GENERAL - Physical Exam Exam: See Below Exam Limited By: No Limitations General Appearance: Alert, WD/WN, No Apparent Distress Throat/Mouth: Normal Inspection, Normal Voice, No Airway Compromise Head: Atraumatic, Normocephalic Neck: Normal Inspection, Supple Respiratory/Chest: No Respiratory Distress, Lungs Clear, Normal Breath Sounds, No Accessory Muscle Use Cardiovascular: Regular Rate, Rhythm, No Edema, No Murmur GI/Abdominal: Normal Bowel Sounds, Soft, Non-Tender, No Distention Extremities: Normal Inspection, No Pedal Edema Neurological: Alert, Oriented, Normal Cognition, No Motor/Sensory Deficits Psychiatric: Normal Affect, Normal Mood #1 Interpretation EKG Date: 09/26/20 Time: 22:50 Rhythm: NSR Rate (Beats/Min): 97 (PVC's) [place]: Normal QRS: Normal Comparison: No Change Course - Vital Signs Last Recorded V/S: Last Vital Signs Temp 97.5 F 09/25/20 22:51 Pulse 83 09/25/20 23:52 Resp 14 09/25/20 23:06 BP 155/87 H 09/25/20 23:52 Pulse Ox 96 09/25/20 23:06 - Orders/Labs/Meds Orders: Active Orders 24 hr Category Date Time Status EKG 12 Lead [EK] Stat Ther 09/25/20 22:55 Ordered Labs: Laboratory Tests 09/25/20 09/25/20 09/25/20 Range/Units 23:07 23:07 23:07 WBC 14.5 H (5.0-10.0) 10^3/uL RBC 3.81 L (4.00-5.50) 10^6/uL Hgb 12.2 (12.0-16.0) g/dL Hct 37.6 (37.0-47.0) % MCV 98.7 H (82.0-94.0) fL MCH 32.0 (27.0-32.0) pg MCHC 32.4 L (33.0-38.0) g/dL RDW Coeff of Radha 13.1 (11.0-15.0) % Plt Count 295 (150-400) 10^3/uL Neut % (Auto) 42.3 (35-85) % Lymph % (Auto) 46.9 (10-55) % [place] % (Auto) 6.7 (0-16) % Eos % (Auto) 3.9 (0-5) % Baso % (Auto) 0.2 (0-3) % Neut # (Auto) 6.13 (1.80-7.00) 10^3/uL Lymph # (Auto) 6.81 H (1.00-4.80) 10^3/uL [place] # (Auto) 0.97 H (0.00-0.80) 10^3/uL Eos # (Auto) 0.57 H (0.00-0.45) 10^3/uL Baso # (Auto) 0.03 10^3/uL PT 9.6 L (9.7-12.3) SEC INR 0.87 L (0.92-1.18) APTT 26.4 (23.2-32.3) SEC Sodium 143 (136-145) mEq/L Potassium 3.5 D (3.5-5.0) mEq/L Chloride 103 (98-106) mEq/L Carbon Dioxide 23 (21-32) mmol/L BUN 24 H (7-18) mg/dL Creatinine 1.8 H (0.6-1.0) mg/dL Est Cr Clr Drug Dosing 31.40 mL/min Estimated GFR (MDRD) 29 L (>=60) mL/min Glucose 131 H D (75-99) mg/dL Calcium 9.4 (8.4-10.1) mg/dL Magnesium 2.0 (1.8-2.4) mg/dL Total Bilirubin 0.2 (0.0-1.0) mg/dL AST 34 (15-37) U/L ALT 42 (12-78) U/L Alkaline Phosphatase 101 (46-116) U/L Lactate Dehydrogenase 189 (100-190) U/L Creatine Kinase 114 (21-215) U/L Troponin I < 0.017 (0.00-0.06) ng/mL Total Protein 7.9 (6.4-8.2) g/dL Albumin 3.7 (3.4-5.0) g/dL Lipase 88 (73-393) U/L Meds: Medications Discontinued Medications Generic Name Dose Route Start Last Admin Trade Name Freq PRN Reason Stop Dose Admin Metoprolol Tartrate 25 mg 09/25/20 23:16 09/25/20 23:22 Metoprolol Tartrate 25 Mg Tab PO 09/25/20 23:17 25 mg ONETIME ONE Administration Departure - Departure Time of Disposition: 00:39 Disposition: Home, Self-Care 01 Clinical Impression: Heart palpitations - Discharge Information *PRESCRIPTION DRUG MONITORING PROGRAM REVIEWED*: No *COPY OF PRESCRIPTION DRUG MONITORING REPORT IN PATIENT CARLOS: No Instructions: Palpitations, [id number] Referrals: Valerie Rivera PA-C [Primary Care Provider] - Additional Instructions: 1) Recommend refraining from alcohol if taking pain medication 2) Rest tonight, encourage increasing water intake 3) Return to taking metoprolol at scheduled time 4) Recommend rechecking blood pressure this week as well 5) If any symptoms return or any concerns at all, recommend reevaluation Sepsis Event Note (ED) - Evaluation Sepsis Screening Result: No Definite Risk - Focused Exam Vital Signs: Vital Signs Temp Pulse Pulse Resp BP BP Pulse Ox 09/25/20 23:52 83 155/87 H 09/25/20 23:22 93 162/85 H 09/25/20 23:06 96 14 169/86 H 96 09/25/20 22:51 97.5 F 106 H 16 180/98 H 98 - Problem List & Annotations (1) Hypertension SNOMED Code(s): 05674938 Code(s): I10 - ESSENTIAL (PRIMARY) HYPERTENSION Status: Acute Current Visit: Yes Qualifiers: Hypertension type: essential hypertension Qualified Code(s): I10 - Essential (primary) hypertension (2) Heart palpitations SNOMED Code(s): 47084662 Code(s): R00.2 - PALPITATIONS Status: Acute Current Visit: Yes - Problem List Review Problem List Initiated/Reviewed/Updated: Yes - My Orders Last 24 Hours: My Active Orders 09/25/20 22:55 EKG 12 Lead [EK] Stat - Assessment/Plan Last 24 Hours: My Active Orders 09/25/20 22:55 EKG 12 Lead [EK] Stat Plan: Padmini did well in the ED. Symptoms mostly subsided. Cardiac workup, labs, EKG were unremarkable. Routine labs stable. Metoprolol Tartrate 25mg given orally an d patient did well. Closely monitored without any further symptoms. Will discharge home at this time. patient in agreement.
== END 2020-09-26 00:47 | disposition home or self-care (01) ==
LOC: CC.ED 22:51
DX: R00.2 Palpitations (principal); I10 Essential (primary) hypertension; K21.9 Gastro-esophageal reflux disease without esophagitis; E03.9 Hypothyroidism, unspecified; Z79.899 Other long term (current) drug therapy
CPT/HCPCS: 36415; 80053; 82550; 83615; 83690; 83735; 84484; 85025; 85610; 85730; 93005; 99285; A9270

== ENCOUNTER 2021-02-17 17:31 | Emergency (ER) | payer BC ==
[2021-02-17 17:45] VITALS: BP 143/75; PULSE 85
[2021-02-17] MEDS ORDERED: methylPREDNISolone Sodium Succinate 125 MG/2 ML SDV IM ONE (18:21)
--- NOTE | 2021-02-17 18:27 | EDM.PDOC ---
ED HPI GENERAL MEDICAL PROBLEM - General Chief Complaint: General Stated Complaint: SOB Time Seen by Provider: 02/17/21 17:40 Source of Information: Reports: Patient History Limitations: Reports: No Limitations - History of Present Illness INITIAL COMMENTS - FREE TEXT/NARRATIVE: Patient presents to ER with complaints of increased chest congestion, shortness of breath and cough. Has had ongoing now for about 2 weeks. Was initially treated with a course of zithromax which did not help. Was switched to Ceftin, COVID negative test. Was feeling better but over the last 2 days, symptoms worsened again. States chest sounded more rattly today. Has been coughing up yellow phlegm. No real sinus pressure or pain at present. No headache. Did have a fever this am, states 101.1 and at 1100 was around 99.9. No nausea/vomiting or abdominal pain. Has history of pneumonia, concerned it has progressed to that. Onset: Gradual Duration: Week(s):, Waxing/Waning Location: Reports: Chest Improves with: Reports: Medication Associated Symptoms: Reports: Cough, cough w sputum, Fever/Chills, Malaise, Shortness of Breath. 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 lower back Pain Score (Numeric/FACES): 3 - Related Data Allergies Allergy/AdvReac Type Severity Reaction Status Date / Time No Known Allergies Allergy Verified 02/17/21 17:33 Home Meds: Home Meds Acetaminophen [Tylenol] 325 mg PO ASDIRECTED PRN 09/02/13 [History] Cholecalciferol (Vitamin D3) [Vitamin D3] 1,000 unit PO DAILY 09/02/13 [History] Folic Acid 1 mg PO DAILY 09/02/13 [History] Multivitamin [Multi-Vitamin Daily] 1 each PO DAILY 09/02/13 [History] Metoprolol Succinate [Toprol XL 50mg] 25 mg PO DAILY 09/20/15 [History] Ondansetron 4 mg PO DAILY PRN 04/08/16 [History] Esomeprazole Magnesium 40 mg PO DAILY 01/04/17 [History] Torsemide 20 mg PO DAILY PRN 03/06/20 [History] Levothyroxine [Synthroid] 50 mcg PO DAILY 09/25/20 [History] oxyCODONE HCl [Oxycontin] 10 mg PO TID PRN 09/25/20 [History] Levofloxacin [Levaquin] 500 mg PO ONETIME #1 tablet 02/17/21 [Rx] levoFLOXacin [Levaquin] 250 mg PO DAILY #9 tab 02/17/21 [Rx] predniSONE [Prednisone] 40 mg PO DAILY #8 tablet 02/17/21 [Rx] Past Medical History Cardiovascular History: Reports: Hypertension Respiratory History: Reports: Bronchitis, Recurrent, Pneumonia, Recurrent Gastrointestinal History: Reports: GERD Genitourinary History: Reports: UTI, Recurrent 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: Musculoskeletal History: Reports: RA Endocrine/Metabolic History: Reports: Hypothyroidism Hematologic History: Reports: Anemia, Iron Deficiency, Other (See Below) Other Hematologic History: iron infusions - Infectious Disease History Infectious Disease History: Reports: Measles - Past Surgical History GI Surgical History: Reports: Bariatric Procedure, Cholecystectomy, Colonoscopy, Other (See Below) Other GI Surgeries/Procedures: gastric bypass Female Surgical History: Reports: Hysterectomy Musculoskeletal Surgical History: Reports: None Social & Family History - Family History Family Medical History: No Pertinent Family History - Tobacco Use Tobacco Use Status *Q: Never Tobacco User Second Hand Smoke Exposure: No - Caffeine Use Caffeine Use: Reports: None - Recreational Drug Use Recreational Drug Use: No ED ROS GENERAL - Review of Systems Review Of Systems: See Below Constitutional: Reports: Fever, Chills, Malaise, Weakness, Fatigue. Denies: Decreased Appetite HEENT: Reports: Rhinitis. Denies: Ear Pain, Sinus Problem, Throat Pain Respiratory: Reports: Shortness of Breath, Wheezing, Cough, Sputum Cardiovascular: Denies: Chest Pain, Edema, Lightheadedness Endocrine: Reports: Fatigue GI/Abdominal: Denies: Abdominal Pain, Constipation, Diarrhea, Nausea, Vomiting : Reports: No Symptoms Musculoskeletal: Reports: No Symptoms Skin: Reports: No Symptoms Neurological: Reports: Weakness ED EXAM, GENERAL - Physical Exam Exam: See Below Exam Limited By: No Limitations General Appearance: Alert, WD/WN, No Apparent Distress Ears: Normal External Exam, Normal TMs Nose: Normal Inspection, Normal Mucosa, No Blood Throat/Mouth: Normal Inspection, Normal Oropharynx Head: Normocephalic Neck: Normal Inspection, Supple, Non-Tender Respiratory/Chest: No Respiratory Distress, Rhonchi Cardiovascular: Regular Rate, Rhythm GI/Abdominal: Normal Bowel Sounds, Soft, Non-Tender Extremities: Normal Inspection, No Pedal Edema Neurological: Alert, Oriented Skin Exam: Warm, Dry Course - Vital Signs Last Recorded V/S: Last Vital Signs Temp 98.3 F 02/17/21 17:40 Pulse 85 02/17/21 17:40 Resp 18 02/17/21 17:40 BP 143/75 H 02/17/21 17:40 Pulse Ox 96 02/17/21 17:40 - Orders/Labs/Meds Orders: Active Orders 24 hr Category Date Time Status Chest 2V [CR] Stat Exams 02/17/21 17:40 Taken cefTRIAXone 1 GM,Lidocaine 1% 1.2 ML Med 02/17/21 18:30 Ordered cefTRIAXone [Rocephin] 1 gm Lidocaine 1% [Xylocaine-MPF 1%] 1.2 ml IM Q24H Labs: Laboratory Tests 02/17/21 02/17/21 Range/Units 17:45 17:45 WBC 11.0 (4.0-11.0) 10^3/uL RBC 3.51 L (4.00-5.50) x10^6/uL Hgb 11.2 L (12.0-16.0) g/dL Hct 34.8 L (37.0-47.0) % MCV 99.1 H (83.0-97.0) fL MCH 31.9 (27.0-32.0) pg MCHC 32.2 (32.0-36.0) g/dL RDW Coeff of Radha 14.6 (11.0-15.0) % Plt Count 273 (150-400) 10^3/uL Immature Gran % (Auto) 0.4 (0.0-4.9) % Neut % (Auto) 80.8 H (41-71) % Lymph % (Auto) 10.2 L (24-44) % Emmons % (Auto) 6.8 (0-10) % Eos % (Auto) 1.5 (0-6) % Baso % (Auto) 0.3 (0-1) % Neut # (Auto) 8.88 H (1.80-8.00) x10^3/uL Lymph # (Auto) 1.12 (0.60-5.00) 10^3/uL Emmons # (Auto) 0.75 (0.00-1.50) 10^3/uL Eos # (Auto) 0.17 (0.00-1.50) 10^3/uL Baso # (Auto) 0.03 (0.00-0.50) 10^3/uL Immature Gran # (Auto) 0.04 (0.00-0.49) 10^3/uL Sodium 143 (136-145) mEq/L Potassium 4.2 (3.5-5.0) mEq/L Chloride 103 (98-106) mEq/L Carbon Dioxide 29 (21-32) mmol/L BUN 21 H (7-18) mg/dL Creatinine 1.7 H (0.6-1.0) mg/dL Est Cr Clr Drug Dosing 32.85 mL/min Estimated GFR (MDRD) 31 L (>=60) mL/min Glucose 106 H (75-99) mg/dL Calcium 8.5 (8.4-10.1) mg/dL Magnesium 1.9 (1.8-2.4) mg/dL Total Bilirubin 0.7 (0.0-1.0) mg/dL AST 27 (15-37) U/L ALT 28 (12-78) U/L Alkaline Phosphatase 121 H (46-116) U/L C-Reactive Protein 7.5 H (0.2-0.8) mg/dL Total Protein 6.8 (6.4-8.2) g/dL Albumin 2.9 L (3.4-5.0) g/dL Meds: Medications Discontinued Medications Generic Name Dose Route Start Last Admin Trade Name Freq PRN Reason Stop Dose Admin Methylprednisolone Sodium Succinate 125 mg 02/17/21 18:21 Methylprednisolone Sodium Succinate 125 Mg/2 Ml Sdv IM 02/17/21 18:22 NOW ONE - Re-Assessments/Exams Free Text/Narrative Re-Assessment/Exam: 02/17/21 18:26 Labs essentially unchanged from previous evaluations. CRP mildly elevated at 7.5. WBC is normal. Creatinine 1.7, unchanged from previous. Chest xray shows potential early infiltrate. Did discuss possible admission versus home with treatment. Does have nebs at home, will give injections. States will return if worsens, able to also watch her oxygen sats at home as well. Departure - Departure Time of Disposition: 18:30 Disposition: Home, Self-Care 01 Condition: Fair Clinical Impression: Pneumonitis - Discharge Information *PRESCRIPTION DRUG MONITORING PROGRAM REVIEWED*: No *COPY OF PRESCRIPTION DRUG MONITORING REPORT IN PATIENT CARLOS: No Instructions: Pneumonitis Referrals: Valerie Rivera PA-C [Primary Care Provider] - Additional Instructions: 1. Push fluids 2. Alternate tylenol with ibuprofen for fever 3. Continue cough medicine as needed 4. Levaquin~ first dose is 500 mg followed by 250 mg daily due to kidney function 5. Prednisone 20 mg~ take 2 tabs daily for 4 days 6. Follow up or return if oxygen sats drop, get more short of breath, need further treatment or hospital admission Sepsis Event Note (ED) - Evaluation Sepsis Screening Result: No Definite Risk - Focused Exam Vital Signs: Vital Signs Temp Pulse Resp BP Pulse Ox 02/17/21 17:40 98.3 F 85 18 143/75 H 96 - My Orders Last 24 Hours: My Active Orders 02/17/21 17:40 Chest 2V [CR] Stat 02/17/21 18:30 cefTRIAXone 1 GM,Lidocaine 1% 1.2 ML cefTRIAXone [Rocephin] 1 gm Lidocaine 1% [Xylocaine-MPF 1%] 1.2 ml IM Q24H - Assessment/Plan Last 24 Hours: My Active Orders 02/17/21 17:40 Chest 2V [CR] Stat 02/17/21 18:30 cefTRIAXone 1 GM,Lidocaine 1% 1.2 ML cefTRIAXone [Rocephin] 1 gm Lidocaine 1% [Xylocaine-MPF 1%] 1.2 ml IM Q24H
[2021-02-17] MEDS ORDERED: cefTRIAXone 1 GM, Lidocaine 1% 1.2 ML IM SCH ×2 (18:30)
== END 2021-02-17 18:45 | disposition home or self-care (01) ==
LOC: CC.ED 17:31
DX: J18.9 Pneumonia, unspecified organism (principal); I10 Essential (primary) hypertension; K21.9 Gastro-esophageal reflux disease without esophagitis; E03.9 Hypothyroidism, unspecified; Z79.899 Other long term (current) drug therapy
CPT/HCPCS: 36415; 71046; 80053; 83735; 85025; 86140; 96372; 99285-25; J0696; J2930

== ENCOUNTER 2021-03-21 18:27 | Emergency (ER) | payer BC ==
[2021-03-21 18:36] VITALS: BP 122/69; PULSE 101
--- NOTE | 2021-03-21 19:19 | EDM.PDOC ---
ED HPI GENERAL MEDICAL PROBLEM - General Chief Complaint: Respiratory Problem Stated Complaint: cough Time Seen by Provider: 03/21/21 18:50 Source of Information: Reports: Patient, RN History Limitations: Reports: No Limitations - History of Present Illness INITIAL COMMENTS - FREE TEXT/NARRATIVE: Started with cough yesterday with temp this morning up to 101 and it did come down with tylenol. She has productive sputum. Denies feeling SOB. Has pain in the right back when she coughs. No increase in edema noted. 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 Right Flank Pain Score (Numeric/FACES): 4 - Related Data Allergies Allergy/AdvReac Type Severity Reaction Status Date / Time No Known Allergies Allergy Verified 03/21/21 18:30 Home Meds: Home Meds Acetaminophen [Tylenol] 325 mg PO ASDIRECTED PRN 09/02/13 [History] Cholecalciferol (Vitamin D3) [Vitamin D3] 1,000 unit PO DAILY 09/02/13 [History] Folic Acid 1 mg PO DAILY 09/02/13 [History] Multivitamin [Multi-Vitamin Daily] 1 each PO DAILY 09/02/13 [History] Metoprolol Succinate [Toprol XL 50mg] 25 mg PO DAILY 09/20/15 [History] Ondansetron 4 mg PO DAILY PRN 04/08/16 [History] Esomeprazole Magnesium 40 mg PO DAILY 01/04/17 [History] Torsemide 20 mg PO DAILY PRN 03/06/20 [History] Levothyroxine [Synthroid] 50 mcg PO DAILY 09/25/20 [History] oxyCODONE HCl [Oxycontin] 10 mg PO TID PRN 09/25/20 [History] Past Medical History Cardiovascular History: Reports: Hypertension Respiratory History: Reports: Bronchitis, Recurrent, Pneumonia, Recurrent Gastrointestinal History: Reports: GERD Genitourinary History: Reports: UTI, Recurrent 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: Musculoskeletal History: Reports: RA Endocrine/Metabolic History: Reports: Hypothyroidism Hematologic History: Reports: Anemia, Iron Deficiency, Other (See Below) Other Hematologic History: iron infusions - Infectious Disease History Infectious Disease History: Reports: Measles - Past Surgical History GI Surgical History: Reports: Bariatric Procedure, Cholecystectomy, Colonoscopy, Other (See Below) Other GI Surgeries/Procedures: gastric bypass Female Surgical History: Reports: Hysterectomy Musculoskeletal Surgical History: Reports: None Social & Family History - Family History Family Medical History: No Pertinent Family History - Tobacco Use Tobacco Use Status *Q: Never Tobacco User - Caffeine Use Caffeine Use: Reports: Soda - Recreational Drug Use Recreational Drug Use: No ED ROS GENERAL - Review of Systems Review Of Systems: See Below Constitutional: Reports: Fever, Fatigue Respiratory: Reports: Cough Cardiovascular: Denies: Chest Pain GI/Abdominal: Denies: Abdominal Pain Musculoskeletal: Reports: Back Pain Skin: Reports: No Symptoms Neurological: Reports: No Symptoms ED EXAM, GENERAL - Physical Exam Exam: See Below Exam Limited By: No Limitations General Appearance: Alert, WD/WN Ears: Normal External Exam, Normal Canal, Normal TMs Throat/Mouth: Normal Inspection, Normal Oropharynx Head: Atraumatic, Normocephalic Neck: Normal Inspection, Supple, Non-Tender, Full Range of Motion Respiratory/Chest: No Respiratory Distress, Other (rhonchi to the lower right lung area posteriorly. No wheezing noted.). No: Respiratory Distress, Wheezing Cardiovascular: Regular Rate, Rhythm, No Edema GI/Abdominal: Normal Bowel Sounds, Soft Extremities: Normal Inspection Neurological: Alert, Oriented Skin Exam: Warm, Dry Course - Vital Signs Last Recorded V/S: Last Vital Signs Temp 98.3 F 03/21/21 18:35 Pulse 101 H 03/21/21 18:35 Resp 18 03/21/21 18:35 BP 122/69 03/21/21 18:35 Pulse Ox 93 L 03/21/21 18:35 - Orders/Labs/Meds Orders: Active Orders 24 hr Category Date Time Status Chest 2V [CR] Stat Exams 03/21/21 18:40 Taken COMPREHENSIVE METABOLIC PN,CMP [CHEM] Stat Lab 03/21/21 18:40 Received CREATINE KINASE,CK [CHEM] Stat Lab 03/21/21 18:40 Received CULTURE URINE [RM] Stat Lab 03/21/21 18:40 Received D-DIMER QUANTITATIVE [COAG] Stat Lab 03/21/21 18:40 Received INR,PT,PROTHROMBIN TIME [COAG] Stat Lab 03/21/21 18:40 Received LACTIC ACID [CHEM] Stat Lab 03/21/21 18:40 Received PRO B-TYPE NATRIUR PEPT,BNPPRO [CHEM] Stat Lab 03/21/21 18:40 Received TROPONIN I HIGH SENSITIVITY [CHEM] Stat Lab 03/21/21 18:40 Received Isolation [COMM] Routine Oth 03/21/21 18:44 Active Labs: Laboratory Tests 03/21/21 03/21/21 03/21/21 Range/Units 18:40 18:40 18:40 WBC 11.3 H (4.0-11.0) 10^3/uL RBC 3.44 L (4.00-5.50) x10^6/uL Hgb 11.1 L (12.0-16.0) g/dL Hct 33.9 L (37.0-47.0) % MCV 98.5 H (83.0-97.0) fL MCH 32.3 H (27.0-32.0) pg MCHC 32.7 (32.0-36.0) g/dL RDW Coeff of Radha 14.8 (11.0-15.0) % Plt Count 308 (150-400) 10^3/uL Immature Gran % (Auto) 0.4 (0.0-4.9) % Neut % (Auto) 85.1 H (41-71) % Lymph % (Auto) 7.2 L (24-44) % Lassen % (Auto) 6.2 (0-10) % Eos % (Auto) 0.7 (0-6) % Baso % (Auto) 0.4 (0-1) % Neut # (Auto) 9.65 H (1.80-8.00) x10^3/uL Lymph # (Auto) 0.82 (0.60-5.00) 10^3/uL Lassen # (Auto) 0.70 (0.00-1.50) 10^3/uL Eos # (Auto) 0.08 (0.00-1.50) 10^3/uL Baso # (Auto) 0.04 (0.00-0.50) 10^3/uL Immature Gran # (Auto) 0.04 (0.00-0.49) 10^3/uL Urine Color Yellow (YELLOW) Urine Appearance Cloudy (CLEAR) Urine pH 5.5 (4.5-8.0) Ur Specific Olivia 1.020 (1.003-1.020) Urine Protein 30 H (NEGATIVE) mg/dL Urine Glucose (UA) Negative (NEGATIVE) mg/dL Urine Ketones Negative (NEGATIVE) mg/dL Urine Occult Blood Small H (NEGATIVE) Urine Nitrite Positive H (NEGATIVE) Urine Bilirubin Negative (NEGATIVE) Urine Urobilinogen 0.2 (0.2-1.0) EU/dL Ur Leukocyte Esterase Small H (NEGATIVE) Urine RBC 0-5 (0-5) /HPF Urine WBC >100 H (0-5) /HPF Ur Epithelial Cells Few H (NOT SEEN) /HPF Urine Bacteria Moderate H (NOT SEEN) /HPF SARS CoV-2 RNA Rapid WU Negative (NEGATIVE) Departure - Departure Time of Disposition: 19:23 Disposition: Home, Self-Care 01 Condition: Fair Clinical Impression: Pneumonitis, CHF, Congestive heart failure Chronic kidney disease (CKD) Qualifiers: Chronic kidney disease stage: unspecified stage Qualified Code(s): N18.9 - Chronic kidney disease, unspecified - Discharge Information *PRESCRIPTION DRUG MONITORING PROGRAM REVIEWED*: Not Applicable *COPY OF PRESCRIPTION DRUG MONITORING REPORT IN PATIENT CARLOS: Not Applicable Referrals: Valerie Rivera PA-C [Primary Care Provider] - Additional Instructions: Take torsemide daily for 3 days ceftin 500 mg daily for 10 days recheck if not improving or if getting worse Sepsis Event Note (ED) - Evaluation Sepsis Screening Result: No Definite Risk - Focused Exam Vital Signs: Vital Signs Temp Pulse Resp BP Pulse Ox 03/21/21 18:35 98.3 F 101 H 18 122/69 93 L - Problem List & Annotations (1) Pneumonitis SNOMED Code(s): 627959970 Code(s): J18.9 - PNEUMONIA, UNSPECIFIED ORGANISM Status: Acute Priority: High Current Visit: Yes (2) CHF, Congestive heart failure SNOMED Code(s): 11225541 Code(s): I50.9 - HEART FAILURE, UNSPECIFIED Status: Acute Priority: High Current Visit: Yes (3) Chronic kidney disease (CKD) SNOMED Code(s): 338621603 Code(s): N18.9 - CHRONIC KIDNEY DISEASE, UNSPECIFIED Status: Chronic Priority: High Current Visit: Yes Qualifiers: Chronic kidney disease stage: unspecified stage Qualified Code(s): N18.9 - Chronic kidney disease, unspecified - Problem List Review Problem List Initiated/Reviewed/Updated: Yes - My Orders Last 24 Hours: My Active Orders 03/21/21 18:40 Chest 2V [CR] Stat COMPREHENSIVE METABOLIC PN,CMP [CHEM] Stat CREATINE KINASE,CK [CHEM] Stat CULTURE URINE [RM] Stat D-DIMER QUANTITATIVE [COAG] Stat INR,PT,PROTHROMBIN TIME [COAG] Stat LACTIC ACID [CHEM] Stat PRO B-TYPE NATRIUR PEPT,BNPPRO [CHEM] Stat TROPONIN I HIGH SENSITIVITY [CHEM] Stat 03/21/21 18:44 Isolation [COMM] Routine - Assessment/Plan Last 24 Hours: My Active Orders 03/21/21 18:40 Chest 2V [CR] Stat COMPREHENSIVE METABOLIC PN,CMP [CHEM] Stat CREATINE KINASE,CK [CHEM] Stat CULTURE URINE [RM] Stat D-DIMER QUANTITATIVE [COAG] Stat INR,PT,PROTHROMBIN TIME [COAG] Stat LACTIC ACID [CHEM] Stat PRO B-TYPE NATRIUR PEPT,BNPPRO [CHEM] Stat TROPONIN I HIGH SENSITIVITY [CHEM] Stat 03/21/21 18:44 Isolation [COMM] Routine
[2021-03-21] MEDS ORDERED: Lidocaine 1% 30 ML SDV INJECT ONE (19:29)
[2021-03-21] MEDS: methylPREDNISolone Acetate 80 MG/ML SDV IM ONE (19:35)
[2021-03-21] MEDS: cefTRIAXone 1 GM Vial IM ONE (19:35)
== END 2021-03-21 19:44 | disposition home or self-care (01) ==
LOC: CC.ED 18:27
DX: J18.9 Pneumonia, unspecified organism (principal); I13.0 Hypertensive heart and chronic kidney disease with heart failure and stage 1 through stage 4 chronic kidney disease, or unspecified chronic kidney disease; N18.9 Chronic kidney disease, unspecified; I50.9 Heart failure, unspecified; K21.9 Gastro-esophageal reflux disease without esophagitis; E03.9 Hypothyroidism, unspecified; Z79.899 Other long term (current) drug therapy; Z20.822 Contact with and (suspected) exposure to COVID-19
CPT/HCPCS: 36415; 71046; 80053; 81001; 82550; 83605; 83880; 84484; 85025; 85379; 85610; 87086; 87088; 87186; 87804; 96372; 99284-25; J0696; J1040; U0002

== ENCOUNTER 2021-12-22 10:50 | Emergency (ER) | payer BC ==
[2021-12-22] MEDS ORDERED: Albuterol 0.083% 2.5 MG/3 ML Neb Soln NEB ONE (10:55)
[2021-12-22] MEDS ORDERED: Acetaminophen 500 MG Tab PO ONE (11:19)
[2021-12-22] MEDS ORDERED: Sodium Chloride 0.9% 500 ML IV SCH (12:15)
[2021-12-22] MEDS ORDERED: VANCOmycin 1 GM/200 ML 1 GM in Premix Bag 1 BAG IV STA (12:40)
[2021-12-22] MEDS ORDERED: Piperacillin/Tazobactam 4.5 GM in Sodium Chloride 0.9% 100 ML IV ONE (12:41)
[2021-12-22] MEDS ORDERED: 50% Dextrose in Water 50 ML Syringe ONE (13:15)
[2021-12-22] MEDS ORDERED: 50% Dextrose in Water 50 ML Syringe IVPUSH ONE (13:42)
[2021-12-22 14:51] VITALS: BP 90/62; PULSE 85
== END 2021-12-22 14:00 ==
LOC: CC.ED 10:50
DX: A41.9 Sepsis, unspecified organism (principal); R65.20 Severe sepsis without septic shock; J96.01 Acute respiratory failure with hypoxia; R77.8 Other specified abnormalities of plasma proteins; I10 Essential (primary) hypertension; E03.9 Hypothyroidism, unspecified; Z79.899 Other long term (current) drug therapy; Z20.822 Contact with and (suspected) exposure to COVID-19
CPT/HCPCS: 36415; 71045; 80053; 81001; 82947; 83605; 83880; 84484; 85025; 85379; 86140; 87040; 87077; 87186; 93005; 94640; 96365; 96367; 96375; 99285; 99285-25; A9270-GY; J2543; J3370; J7040; J7613-GY; U0002

== ENCOUNTER 2022-03-20 17:00 | Emergency (ER) | payer BC ==
[2022-03-20 17:09] VITALS: BP 101/59; PULSE 87
[2022-03-20] MEDS: Sodium Chloride 0.9% 1,000 ML IV ONE (18:41)
[2022-03-20] MEDS: HYDROmorphone 1 MG/ML Syringe IM ONE (19:53)
[2022-03-20] MEDS: Tamsulosin 0.4 MG Cap.ER PO ONE (20:44)
== END 2022-03-20 21:05 | disposition home or self-care (01) ==
LOC: CC.ED 17:00
DX: N13.2 Hydronephrosis with renal and ureteral calculous obstruction (principal); I10 Essential (primary) hypertension; E03.9 Hypothyroidism, unspecified; K21.9 Gastro-esophageal reflux disease without esophagitis; Z79.01 Long term (current) use of anticoagulants; Z79.899 Other long term (current) drug therapy
CPT/HCPCS: 74018; 74176; 96360; 96372; 99284; 99284-25; A9270-GY; J1170; J7030

== ENCOUNTER 2022-11-16 16:34 | Emergency (ER) | payer BC ==
[2022-11-16 17:28] LABS: BASOPHILS ABSOLUTE AUTO 0.01 10^3/uL (0.00-0.50); BASOPHILS PERCENT AUTO 0.1 % (0-1); EOSINOPHILS ABSOLUTE AUTO 0.02 10^3/uL (0.00-1.50); EOSINOPHILS PERCENT AUTO 0.1 % (0-6); HEMATOCRIT 33.6 % (37.0-47.0); HEMOGLOBIN 10.5 g/dL (12.0-16.0); IMMATURE GRAN PERCENT AUTO 0.7 % (0.0-4.9); LYMPHOCYTES ABSOLUTE AUTO 1.74 10^3/uL (0.60-5.00); LYMPHOCYTES PERCENT AUTO 11.5 % (24-44); MEAN CORPUSCULAR HEMOGLOBIN 27.9 pg (27.0-32.0); MEAN CORPUSCULAR HGB CONC 31.3 g/dL (32.0-36.0); MEAN CORPUSCULAR VOLUME 89.4 fL (83.0-97.0); MONOCYTES ABSOLUTE AUTO 1.35 10^3/uL (0.00-1.50); MONOCYTES PERCENT AUTO 8.9 % (0-10); NEUTROPHILS ABSOLUTE AUTO 11.93 x10^3/uL (1.80-8.00); NEUTROPHILS PERCENT AUTO 78.7 % (41-71); PLATELET COUNT,PLT 436 10^3/uL (150-400); RED BLOOD CELL COUNT 3.76 x10^6/uL (4.00-5.50); WHITE BLOOD CELL COUNT,WBC 15.2 10^3/uL (4.0-11.0)
[2022-11-16 17:44] LABS: PROTHROMBIN TIME 64.3 SEC (9.3-11.3)
[2022-11-16 17:47] LABS: ALBUMIN 2.9 g/dL (3.4-5.0); BILIRUBIN TOTAL 0.2 mg/dL (0.0-1.0); CALCIUM 8.7 mg/dL (8.4-10.1); EST CRCL DRUG DOSING (CG) 15.14 mL/min; POTASSIUM,K 4.2 mEq/L (3.5-5.0); PROTEIN TOTAL,TP 7.2 g/dL (6.4-8.2)
[2022-11-16 17:48] LABS: INR 6.59 (0.92-1.18)
[2022-11-16] MEDS: Sodium Chloride 0.9% 1,000 ML IV ONE (17:48)
[2022-11-16 17:49] LABS: CREATININE 3.6 mg/dL (0.6-1.0)
[2022-11-16] MEDS: Piperacillin/Tazobactam 3.375 GM in Sodium Chloride 0.9% 100 ML IV ONE (17:49)
[2022-11-16 18:03] VITALS: BP 114/67; PULSE 99
[2022-11-16 18:20] LABS: APPEARANCE,URINE SLIGHTLY CLOUDY (CLEAR); BILIRUBIN,URINE NEGATIVE (NEGATIVE); COLOR,URINE YELLOW (YELLOW); GLUCOSE,URINE NEGATIVE (NEGATIVE); KETONES,URINE NEGATIVE (NEGATIVE); LEUKOCYTE ESTERASE,URINE SMALL (NEGATIVE); NITRITE,URINE NEGATIVE (NEGATIVE); OCCULT BLOOD,URINE NEGATIVE (NEGATIVE); PH,URINE 5.5 (4.5-8.0); PROTEIN,URINE 100 mg/dL (NEGATIVE); UROBILINOGEN,URINE 0.2 EU/dL (0.2-1.0)
[2022-11-16 18:31] LABS: BACTERIA,URINE FEW /HPF (NOT SEEN); EPITHELIAL CELLS,URINE OCCASIONAL /HPF (NOT SEEN); MUCUS,URINE OCCASIONAL /HPF (NOT SEEN); RBC,URINE 0-5 /HPF (0-5); WBC,URINE >100 /HPF (0-5)
[2022-11-16 18:58] LABS: O2 DELIVERY DEVICE NASAL CANNULA
[2022-11-16 19:00] LABS: O2 SATURATION ARTERIAL 68 % (95-98); PH,ARTERIAL 7.11 (7.35-7.45); PO2 ARTERIAL 47 mm/Hg (80-100)
[2022-11-16 19:01] LABS: BASE EXCESS ARTERIAL -20.5 (-2.0-3.0); BICARBONATE,ARTERIAL 9.1 mm/L (22.0-26.0)
[2022-11-16 19:05] LABS: PCO2 ARTERIAL 34 mm/Hg0 (35-45)
[2022-11-16] MEDS: VANCOmycin 1 GM/200 ML 1 GM in Premix Bag 1 BAG IV STA (19:17)
[2022-11-16] MEDS: Sodium Bicarbonate 8.4% 50 MEQ/50 ML Syringe IVPUSH ONE ×2 (19:46→19:47)
[2022-11-16] MEDS: Sodium Chloride 0.9% 1,000 ML IV SCH (19:46)
== END 2022-11-16 19:50 ==
LOC: CC.ED 16:34
DX: A41.9 Sepsis, unspecified organism (principal); R65.20 Severe sepsis without septic shock; J96.01 Acute respiratory failure with hypoxia; N18.9 Chronic kidney disease, unspecified; N30.00 Acute cystitis without hematuria; R41.82 Altered mental status, unspecified; D72.825 Bandemia; I10 Essential (primary) hypertension; K21.9 Gastro-esophageal reflux disease without esophagitis; E03.9 Hypothyroidism, unspecified; Z79.899 Other long term (current) drug therapy
CPT/HCPCS: 36415; 36600; 51702; 71045; 80053; 81001; 82803; 83605; 83735; 84484; 85025; 85610; 87040; 87086; 87088; 87186; 87804; 87807; 93005; 93010; 96361; 96365; 96375; 99284; 99285-25; J2543; J3490; J7030; U0002

== ENCOUNTER → 2023-01-30 | Day surgery (SDC) | payer BC ==
[~2023-01-30] MED LIST changes: -Acetaminophen/HYDROcodone 325-5 MG Tab PO ONE; +Dexamethasone 4 MG/ML SDV ONE; +Ketamine 200 MG/20 ML MDV ONE; +Lactated Ringers 1,000 ML IV SCH; +Lidocaine 2% 20 ML MDV ONE; +Midazolam 1 MG/ML 2 ML SDV ONE; +Ondansetron 4 MG/2 ML SDV ONE; +Propofol 200 MG/20 ML SDV ONE; +ePHEDrine 50 MG/ML SDV ONE; +fentaNYL 50 MCG/ML SDV ONE
[2023-01-30 08:40] LABS: INR 0.91 (0.92-1.18); PROTHROMBIN TIME 9.4 SEC (9.3-11.3)
[2023-01-30 11:45] VITALS: BP 141/67; PULSE 51
== END ==
LOC: CC.SDS 08:19
PROVIDERS: ATTEND Family Medicine
DX: K29.50 Unspecified chronic gastritis without bleeding (principal); D12.5 Benign neoplasm of sigmoid colon; K25.9 Gastric ulcer, unspecified as acute or chronic, without hemorrhage or perforation; K57.30 Diverticulosis of large intestine without perforation or abscess without bleeding; I48.0 Paroxysmal atrial fibrillation; R53.83 Other fatigue; R35.1 Nocturia; M19.90 Unspecified osteoarthritis, unspecified site; R06.02 Shortness of breath; D64.9 Anemia, unspecified; R05.9 Cough, unspecified; E78.5 Hyperlipidemia, unspecified; G89.29 Other chronic pain; I10 Essential (primary) hypertension; I48.91 Unspecified atrial fibrillation; K21.9 Gastro-esophageal reflux disease without esophagitis; M06.9 Rheumatoid arthritis, unspecified; M81.0 Age-related osteoporosis without current pathological fracture; Z98.84 Bariatric surgery status; Z79.899 Other long term (current) drug therapy; Z79.890 Hormone replacement therapy; Z79.891 Long term (current) use of opiate analgesic; Z98.0 Intestinal bypass and anastomosis status
CPT/HCPCS: 00813; 36415; 85610; 87081; J1100; J2250; J2405; J2704; J3010; J3490; J7120

== ENCOUNTER 2024-03-07 10:53 | Inpatient (IN) | payer BC ==
[2024-03-07] MEDS ORDERED: Sodium Chloride 0.9% 10 ML Syringe FLUSH PRN (11:27)
[2024-03-07] MEDS ORDERED: Docusate Sodium 100 MG Cap PO PRN (11:27)
[2024-03-07] MEDS ORDERED: Ondansetron 4 MG Tab.DIS PO PRN (11:27)
[2024-03-07 11:48] LABS: LACTIC ACID 0.6 mmol/L (0.4-2.0)
[2024-03-07] MEDS: Sodium Chloride 0.9% 1,000 ML IV SCH (12:12)
[2024-03-07] MEDS: Piperacillin/Tazobactam 4.5 GM in Sodium Chloride 0.9% 100 ML IV ONE (12:14)
[2024-03-07] MEDS ORDERED: Albuterol 6.7 GM Inhaler INH PRN (12:31)
[2024-03-07] MEDS ORDERED: predniSONE 5 MG Tab PO PRN (12:31)
[2024-03-07] MEDS: Piperacillin/Tazobactam 4.5 GM Vial ONE (12:36)
[2024-03-07] MEDS ORDERED: oxyCODONE 5 MG Tab PO PRN (13:18)
[2024-03-07] MEDS ORDERED: Formoterol/Mometasone 200-5 MCG 8.8 GM Inhaler IH PRN (13:23)
[2024-03-07] MEDS: Sodium Chloride 0.9% 100 ML ONE (16:03)
[2024-03-07] MEDS: Piperacillin/Tazobactam 4.5 GM in Sodium Chloride 0.9% 100 ML IV SCH (16:06)
[2024-03-07] MEDS: Metoprolol Succinate 25 MG Tab.ER PO SCH (18:44)
[2024-03-07] MEDS: Hydroxychloroquine 200 MG Tab PO SCH (20:27)
[2024-03-07] MEDS: Acetaminophen 325 MG Tab PO PRN (20:27)
[2024-03-07] MEDS: Enoxaparin 30 MG/0.3 ML Syringe SUBCUT SCH (20:28)
[2024-03-07] MEDS: Zolpidem 5 MG Tab PO PRN (23:31)
[2024-03-08] MEDS: Pantoprazole 40 MG Tab.CR PO SCH (06:51)
[2024-03-08] MEDS: Levothyroxine 50 MCG Tab PO SCH (06:51)
[2024-03-08 07:23] LABS: BASOPHILS ABSOLUTE AUTO 0.02 10^3/uL (0.00-0.50); BASOPHILS PERCENT AUTO 0.2 % (0-1); HEMATOCRIT 30.1 % (37.0-47.0); HEMOGLOBIN 9.2 g/dL (12.0-16.0); IMMATURE GRAN ABSOLUTE AUTO 0.03 10^3/uL (0.00-0.49); IMMATURE GRAN PERCENT AUTO 0.3 % (0.0-4.9); LYMPHOCYTES ABSOLUTE AUTO 2.02 10^3/uL (0.60-5.00); LYMPHOCYTES PERCENT AUTO 20.3 % (24-44); MEAN CORPUSCULAR HGB CONC 30.6 g/dL (32.0-36.0); MONOCYTES ABSOLUTE AUTO 0.61 10^3/uL (0.00-1.50); MONOCYTES PERCENT AUTO 6.1 % (0-10); NEUTROPHILS ABSOLUTE AUTO 6.99 x10^3/uL (1.80-8.00); NEUTROPHILS PERCENT AUTO 70.1 % (41-71); PLATELET COUNT,PLT 231 10^3/uL (150-400); RED BLOOD CELL COUNT 3.17 x10^6/uL (4.00-5.50)
[2024-03-08] MEDS: Cholecalciferol (Vitamin D3) 25 MCG Tab PO SCH (07:32)
[2024-03-08] MEDS: Multivitamin Tab PO SCH (07:32)
[2024-03-08] MEDS: Folic Acid 1 MG Tab PO SCH (07:32)
[2024-03-08 07:37] LABS: ALBUMIN 2.5 g/dL (3.4-5.0); BILIRUBIN TOTAL 0.3 mg/dL (0.0-1.0); C-REACTIVE PROTEIN 7.29 mg/dL (<=0.50); CALCIUM 8.7 mg/dL (8.4-10.1); CREATININE 1.4 mg/dL (0.6-1.0); EST CRCL DRUG DOSING (CG) 38.45 mL/min; POTASSIUM,K 4.7 mEq/L (3.5-5.0); PROTEIN TOTAL,TP 5.7 g/dL (6.4-8.2)
[2024-03-08] MEDS: Metoprolol Succinate 25 MG Tab.ER PO SCH (09:48)
[2024-03-09] MEDS: Ondansetron 4 MG/2 ML SDV IV PRN (00:09)
[2024-03-09 07:53] LABS: ALBUMIN 2.5 g/dL (3.4-5.0); BILIRUBIN TOTAL 0.3 mg/dL (0.0-1.0); C-REACTIVE PROTEIN 3.5 mg/dL (<=0.50); CALCIUM 9.1 mg/dL (8.4-10.1); CREATININE 1.3 mg/dL (0.6-1.0); EST CRCL DRUG DOSING (CG) 41.41 mL/min; POTASSIUM,K 4.9 mEq/L (3.5-5.0)
[2024-03-09 08:08] LABS: BASOPHILS ABSOLUTE AUTO 0.02 10^3/uL (0.00-0.50); BASOPHILS PERCENT AUTO 0.3 % (0-1); EOSINOPHILS ABSOLUTE AUTO 0.23 10^3/uL (0.00-1.50); EOSINOPHILS PERCENT AUTO 3.5 % (0-6); HEMATOCRIT 30.9 % (37.0-47.0); HEMOGLOBIN 9.3 g/dL (12.0-16.0); LYMPHOCYTES ABSOLUTE AUTO 2.15 10^3/uL (0.60-5.00); LYMPHOCYTES PERCENT AUTO 32.4 % (24-44); MEAN CORPUSCULAR HEMOGLOBIN 28.6 pg (27.0-32.0); MEAN CORPUSCULAR HGB CONC 30.1 g/dL (32.0-36.0); MEAN CORPUSCULAR VOLUME 95.1 fL (83.0-97.0); MONOCYTES ABSOLUTE AUTO 0.45 10^3/uL (0.00-1.50); MONOCYTES PERCENT AUTO 6.8 % (0-10); NEUTROPHILS ABSOLUTE AUTO 3.78 x10^3/uL (1.80-8.00); PLATELET COUNT,PLT 261 10^3/uL (150-400); RED BLOOD CELL COUNT 3.25 x10^6/uL (4.00-5.50); WHITE BLOOD CELL COUNT,WBC 6.6 10^3/uL (4.0-11.0)
[2024-03-09 12:32] VITALS: BP 135/81; PULSE 60
== END 2024-03-09 12:30 | disposition home or self-care (01) | DRG 463 ==
LOC: UNDOADMIN 10:53 → CC.MS 10:53
PROVIDERS: ADMIT Nurse Practitioner Family; ATTEND Nurse Practitioner Family
DX: N12 Tubulo-interstitial nephritis, not specified as acute or chronic (principal); N17.9 Acute kidney failure, unspecified; N30.00 Acute cystitis without hematuria; E03.9 Hypothyroidism, unspecified; K21.9 Gastro-esophageal reflux disease without esophagitis; I10 Essential (primary) hypertension; D50.9 Iron deficiency anemia, unspecified; D72.829 Elevated white blood cell count, unspecified; R79.82 Elevated C-reactive protein (CRP); Z16.12 Extended spectrum beta lactamase (ESBL) resistance; B96.20 Unspecified Escherichia coli [E. coli] as the cause of diseases classified elsewhere; Z79.01 Long term (current) use of anticoagulants; Z90.49 Acquired absence of other specified parts of digestive tract; Z79.52 Long term (current) use of systemic steroids; Z90.710 Acquired absence of both cervix and uterus; Z98.890 Other specified postprocedural states; Z79.890 Hormone replacement therapy; Z79.899 Other long term (current) drug therapy
CPT/HCPCS: 36415; 80053; 83605; 85025; 86140; 99223; 99233; 99238; A9270-GY; J1650; J2405; J2543; J3490; J7030

== ENCOUNTER 2024-04-23 17:59 | Inpatient (IN) | payer BC ==
[2024-04-23 18:25] LABS: BASOPHILS PERCENT AUTO 0.2 % (0-1); EOSINOPHILS PERCENT AUTO 2.4 % (0-6); HEMATOCRIT 33.7 % (37.0-47.0); HEMOGLOBIN 10.6 g/dL (12.0-16.0); IMMATURE GRAN PERCENT AUTO 0.4 % (0.0-4.9); LYMPHOCYTES PERCENT AUTO 10.8 % (24-44); MEAN CORPUSCULAR HEMOGLOBIN 28.6 pg (27.0-32.0); MEAN CORPUSCULAR HGB CONC 31.5 g/dL (32.0-36.0); MEAN CORPUSCULAR VOLUME 90.8 fL (83.0-97.0); MONOCYTES PERCENT AUTO 4.6 % (0-10); NEUTROPHILS PERCENT AUTO 81.6 % (41-71); PLATELET COUNT,PLT 290 10^3/uL (150-400); RED BLOOD CELL COUNT 3.71 x10^6/uL (4.00-5.50)
[2024-04-23 18:25] LABS: APPEARANCE,URINE SLIGHTLY CLOUDY (CLEAR); BILIRUBIN,URINE NEGATIVE (NEGATIVE); COLOR,URINE YELLOW (YELLOW); GLUCOSE,URINE NEGATIVE (NEGATIVE); KETONES,URINE NEGATIVE (NEGATIVE); LEUKOCYTE ESTERASE,URINE NEGATIVE (NEGATIVE); NITRITE,URINE NEGATIVE (NEGATIVE); OCCULT BLOOD,URINE SMALL (NEGATIVE); PH,URINE 5.5 (4.5-8.0); PROTEIN,URINE NEGATIVE (NEGATIVE); UROBILINOGEN,URINE 0.2 EU/dL (0.2-1.0)
[2024-04-23 18:26] LABS: BASOPHILS ABSOLUTE AUTO 0.05 10^3/uL (0.00-0.50); EOSINOPHILS ABSOLUTE AUTO 0.49 10^3/uL (0.00-1.50); IMMATURE GRAN ABSOLUTE AUTO 0.08 10^3/uL (0.00-0.49); MONOCYTES ABSOLUTE AUTO 0.95 10^3/uL (0.00-1.50); NEUTROPHILS ABSOLUTE AUTO 16.69 x10^3/uL (1.80-8.00)
[2024-04-23 18:29] LABS: WHITE BLOOD CELL COUNT,WBC 20.5 10^3/uL (4.0-11.0)
[2024-04-23 18:37] LABS: EPITHELIAL CELLS,URINE MODERATE /HPF (NOT SEEN); RBC,URINE 30-40 /HPF (0-5); WBC,URINE 0-5 /HPF (0-5)
[2024-04-23 18:38] LABS: BACTERIA,URINE FEW /HPF (NOT SEEN); GRANULAR CASTS,URINE FEW /LPF (NOT SEEN)
[2024-04-23 18:39] LABS: ALBUMIN 3.3 g/dL (3.4-5.0); BILIRUBIN TOTAL 0.3 mg/dL (0.0-1.0); C-REACTIVE PROTEIN 7.85 mg/dL (<=0.50); CALCIUM 8.5 mg/dL (8.4-10.1); EST CRCL DRUG DOSING (CG) 17.37 mL/min; POTASSIUM,K 5.2 mEq/L (3.5-5.0); PROTEIN TOTAL,TP 7.5 g/dL (6.4-8.2)
[2024-04-23 18:41] LABS: CREATININE 3.1 mg/dL (0.6-1.0)
[2024-04-23] MEDS ORDERED: Sodium Chloride 0.9% 10 ML Syringe FLUSH PRN (19:38)
[2024-04-23] MEDS ORDERED: Acetaminophen 325 MG Tab PO PRN (19:38)
[2024-04-23] MEDS ORDERED: Torsemide 20 MG Tab PO PRN (19:38)
[2024-04-23] MEDS ORDERED: Formoterol/Mometasone 200-5 MCG 8.8 GM Inhaler INH PRN (19:38)
[2024-04-23] MEDS ORDERED: Ondansetron 4 MG/2 ML SDV IV PRN (19:38)
[2024-04-23] MEDS ORDERED: Ondansetron 4 MG Tab.DIS PO PRN (19:38)
[2024-04-23] MEDS: Sodium Chloride 0.9% 1,000 ML IV SCH ×2 (20:33→22:16)
[2024-04-23] MEDS: methylPREDNISolone Sodium Succinate 125 MG/2 ML SDV IVPUSH SCH (20:50)
[2024-04-23] MEDS: Albuterol/Ipratropium 3.0-0.5 MG/3 ML Neb Soln NEB SCH (20:55)
[2024-04-23] MEDS: Metoprolol Succinate 25 MG Tab.ER PO SCH (20:55)
[2024-04-23] MEDS: Piperacillin/Tazobactam 4.5 GM in Sodium Chloride 0.9% 100 ML IV ONE (21:05)
[2024-04-23] MEDS: Zolpidem 5 MG Tab PO PRN (22:19)
[2024-04-24] MEDS: Piperacillin/Tazobactam 4.5 GM in Sodium Chloride 0.9% 100 ML IV SCH (00:22)
[2024-04-24] MEDS: Pantoprazole 40 MG Tab.CR PO SCH (06:58)
[2024-04-24] MEDS: Levothyroxine 50 MCG Tab PO SCH (06:58)
[2024-04-24] MEDS: Cholecalciferol (Vitamin D3) 25 MCG Tab PO SCH (07:35)
[2024-04-24] MEDS: Multivitamin Tab PO SCH (07:35)
[2024-04-24] MEDS: Folic Acid 1 MG Tab PO SCH (07:35)
[2024-04-24 08:11] LABS: BILIRUBIN TOTAL 0.4 mg/dL (0.0-1.0); C-REACTIVE PROTEIN 17.08 mg/dL (<=0.50); CREATININE 2.2 mg/dL (0.6-1.0); EST CRCL DRUG DOSING (CG) 24.47 mL/min; POTASSIUM,K 5.1 mEq/L (3.5-5.0); PROTEIN TOTAL,TP 7.2 g/dL (6.4-8.2)
[2024-04-24 08:31] LABS: BASOPHILS ABSOLUTE AUTO 0.01 10^3/uL (0.00-0.50); HEMATOCRIT 31.2 % (37.0-47.0); HEMOGLOBIN 9.8 g/dL (12.0-16.0); IMMATURE GRAN ABSOLUTE AUTO 0.09 10^3/uL (0.00-0.49); IMMATURE GRAN PERCENT AUTO 0.4 % (0.0-4.9); LYMPHOCYTES ABSOLUTE AUTO 1.38 10^3/uL (0.60-5.00); LYMPHOCYTES PERCENT AUTO 6.5 % (24-44); MEAN CORPUSCULAR HEMOGLOBIN 28.3 pg (27.0-32.0); MEAN CORPUSCULAR HGB CONC 31.4 g/dL (32.0-36.0); MEAN CORPUSCULAR VOLUME 90.2 fL (83.0-97.0); MONOCYTES ABSOLUTE AUTO 0.35 10^3/uL (0.00-1.50); MONOCYTES PERCENT AUTO 1.6 % (0-10); NEUTROPHILS ABSOLUTE AUTO 19.56 x10^3/uL (1.80-8.00); NEUTROPHILS PERCENT AUTO 91.5 % (41-71); PLATELET COUNT,PLT 282 10^3/uL (150-400); RED BLOOD CELL COUNT 3.46 x10^6/uL (4.00-5.50)
[2024-04-24 08:35] LABS: WHITE BLOOD CELL COUNT,WBC 21.4 10^3/uL (4.0-11.0)
[2024-04-24] MEDS: Metoprolol Succinate 25 MG Tab.ER PO SCH ×2 (09:29→10:12)
[2024-04-24] MEDS: Enoxaparin 30 MG/0.3 ML Syringe SUBCUT SCH (11:45)
[2024-04-24] MEDS: guaiFENesin 200 MG Tab PO SCH (14:36)
[2024-04-25 07:49] LABS: HEMATOCRIT 28.8 % (37.0-47.0); IMMATURE GRAN ABSOLUTE AUTO 0.05 10^3/uL (0.00-0.49); IMMATURE GRAN PERCENT AUTO 0.4 % (0.0-4.9); LYMPHOCYTES ABSOLUTE AUTO 1.13 10^3/uL (0.60-5.00); LYMPHOCYTES PERCENT AUTO 8.9 % (24-44); MEAN CORPUSCULAR HEMOGLOBIN 28.2 pg (27.0-32.0); MEAN CORPUSCULAR HGB CONC 31.3 g/dL (32.0-36.0); MEAN CORPUSCULAR VOLUME 90.3 fL (83.0-97.0); MONOCYTES ABSOLUTE AUTO 0.37 10^3/uL (0.00-1.50); MONOCYTES PERCENT AUTO 2.9 % (0-10); NEUTROPHILS ABSOLUTE AUTO 11.15 x10^3/uL (1.80-8.00); NEUTROPHILS PERCENT AUTO 87.8 % (41-71); PLATELET COUNT,PLT 232 10^3/uL (150-400); RED BLOOD CELL COUNT 3.19 x10^6/uL (4.00-5.50); WHITE BLOOD CELL COUNT,WBC 12.7 10^3/uL (4.0-11.0)
[2024-04-25 08:05] LABS: ALBUMIN 2.8 g/dL (3.4-5.0); BILIRUBIN TOTAL 0.2 mg/dL (0.0-1.0); C-REACTIVE PROTEIN 9.95 mg/dL (<=0.50); CALCIUM 8.8 mg/dL (8.4-10.1); CREATININE 1.4 mg/dL (0.6-1.0); EST CRCL DRUG DOSING (CG) 38.45 mL/min; PROTEIN TOTAL,TP 6.8 g/dL (6.4-8.2)
[2024-04-25] MEDS: oxyCODONE 5 MG Tab PO PRN (12:44)
[2024-04-25] MEDS: Piperacillin/Tazobactam 4.5 GM in Sodium Chloride 0.9% 100 ML IV SCH (13:09)
[2024-04-26 07:57] LABS: BASOPHILS ABSOLUTE AUTO 0.01 10^3/uL (0.00-0.50); BASOPHILS PERCENT AUTO 0.1 % (0-1); HEMATOCRIT 29.5 % (37.0-47.0); HEMOGLOBIN 9.2 g/dL (12.0-16.0); IMMATURE GRAN ABSOLUTE AUTO 0.11 10^3/uL (0.00-0.49); IMMATURE GRAN PERCENT AUTO 0.8 % (0.0-4.9); LYMPHOCYTES ABSOLUTE AUTO 1.65 10^3/uL (0.60-5.00); LYMPHOCYTES PERCENT AUTO 12.1 % (24-44); MEAN CORPUSCULAR HEMOGLOBIN 28.4 pg (27.0-32.0); MEAN CORPUSCULAR HGB CONC 31.2 g/dL (32.0-36.0); MONOCYTES ABSOLUTE AUTO 0.36 10^3/uL (0.00-1.50); MONOCYTES PERCENT AUTO 2.6 % (0-10); NEUTROPHILS ABSOLUTE AUTO 11.52 x10^3/uL (1.80-8.00); NEUTROPHILS PERCENT AUTO 84.4 % (41-71); PLATELET COUNT,PLT 260 10^3/uL (150-400); RED BLOOD CELL COUNT 3.24 x10^6/uL (4.00-5.50); WHITE BLOOD CELL COUNT,WBC 13.7 10^3/uL (4.0-11.0)
[2024-04-26 08:09] LABS: ALBUMIN 3.1 g/dL (3.4-5.0); BILIRUBIN TOTAL 0.4 mg/dL (0.0-1.0); C-REACTIVE PROTEIN 4.51 mg/dL (<=0.50); CALCIUM 9.5 mg/dL (8.4-10.1); CREATININE 1.3 mg/dL (0.6-1.0); EST CRCL DRUG DOSING (CG) 41.41 mL/min; POTASSIUM,K 4.4 mEq/L (3.5-5.0); PROTEIN TOTAL,TP 7.2 g/dL (6.4-8.2)
[2024-04-26 10:47] VITALS: BP 162/81; PULSE 54
== END 2024-04-26 10:55 | disposition home or self-care (01) | DRG 139 ==
LOC: CC.ED 17:59 → UNDOADMIN 19:22 → CC.MS 19:22
PROVIDERS: ADMIT Physician Assistant Medical; ATTEND Physician Assistant Medical
DX: J18.9 Pneumonia, unspecified organism (principal); N17.9 Acute kidney failure, unspecified; K21.9 Gastro-esophageal reflux disease without esophagitis; M06.9 Rheumatoid arthritis, unspecified; E03.9 Hypothyroidism, unspecified; N18.9 Chronic kidney disease, unspecified; I12.9 Hypertensive chronic kidney disease with stage 1 through stage 4 chronic kidney disease, or unspecified chronic kidney disease; Z79.899 Other long term (current) drug therapy; Z79.51 Long term (current) use of inhaled steroids; Z98.84 Bariatric surgery status; Z90.49 Acquired absence of other specified parts of digestive tract; Z90.710 Acquired absence of both cervix and uterus
CPT/HCPCS: 36415; 71046; 80053; 81001; 83605; 85025; 86140; 87040; 94640; 99223; 99232; 99233; 99238; 99285; A9270-GY; J1650; J2543; J2919; J3490; J7030; J7620-GY

== ENCOUNTER 2024-06-14 20:44 | Emergency (ER) | payer BC ==
[2024-06-14 20:48] VITALS: BP 177/83; PULSE 65
[2024-06-14 20:59] LABS: APPEARANCE,URINE CLEAR (CLEAR); BILIRUBIN,URINE NEGATIVE (NEGATIVE); COLOR,URINE YELLOW (YELLOW); GLUCOSE,URINE NEGATIVE (NEGATIVE); KETONES,URINE NEGATIVE (NEGATIVE); LEUKOCYTE ESTERASE,URINE NEGATIVE (NEGATIVE); NITRITE,URINE NEGATIVE (NEGATIVE); OCCULT BLOOD,URINE SMALL (NEGATIVE); PROTEIN,URINE NEGATIVE (NEGATIVE); UROBILINOGEN,URINE 0.2 EU/dL (0.2-1.0)
[2024-06-14 21:00] LABS: BASOPHILS ABSOLUTE AUTO 0.03 10^3/uL (0.00-0.50); BASOPHILS PERCENT AUTO 0.3 % (0-1); EOSINOPHILS ABSOLUTE AUTO 0.33 10^3/uL (0.00-1.50); EOSINOPHILS PERCENT AUTO 3.8 % (0-6); HEMATOCRIT 37.6 % (37.0-47.0); HEMOGLOBIN 11.5 g/dL (12.0-16.0); IMMATURE GRAN ABSOLUTE AUTO 0.12 10^3/uL (0.00-0.49); IMMATURE GRAN PERCENT AUTO 1.4 % (0.0-4.9); LYMPHOCYTES ABSOLUTE AUTO 3.71 10^3/uL (0.60-5.00); LYMPHOCYTES PERCENT AUTO 42.9 % (24-44); MEAN CORPUSCULAR HEMOGLOBIN 27.6 pg (27.0-32.0); MEAN CORPUSCULAR HGB CONC 30.6 g/dL (32.0-36.0); MEAN CORPUSCULAR VOLUME 90.4 fL (83.0-97.0); MONOCYTES ABSOLUTE AUTO 0.73 10^3/uL (0.00-1.50); MONOCYTES PERCENT AUTO 8.4 % (0-10); NEUTROPHILS ABSOLUTE AUTO 3.72 x10^3/uL (1.80-8.00); NEUTROPHILS PERCENT AUTO 43.2 % (41-71); PLATELET COUNT,PLT 398 10^3/uL (150-400); RED BLOOD CELL COUNT 4.16 x10^6/uL (4.00-5.50); WHITE BLOOD CELL COUNT,WBC 8.6 10^3/uL (4.0-11.0)
[2024-06-14 21:13] LABS: RBC,URINE 0-5 /HPF (0-5); SQUAMOUS EPITHELIAL CELLS,UR MODERATE /HPF (NOT SEEN); WBC,URINE 0-5 /HPF (0-5)
[2024-06-14 21:14] LABS: ALANINE AMINOTRANSFERASE,ALT 21 U/L (12-78); ALBUMIN 3.4 g/dL (3.4-5.0); ALKALINE PHOSPHATASE 170 U/L (46-116); ASPARTATE AMNIOTRANSFERASE,AST 22 U/L (15-37); BILIRUBIN TOTAL 0.3 mg/dL (0.0-1.0); BLOOD UREA NITROGEN,BUN 20 mg/dL (7-18); CALCIUM 9.2 mg/dL (8.4-10.1); CARBON DIOXIDE,CO2 27 mmol/L (21-32); CHLORIDE,CL 100 mEq/L (98-106); EST CRCL DRUG DOSING (CG) 26.92 mL/min; GLUCOSE RANDOM 109 mg/dL (75-99); POTASSIUM,K 3.4 mEq/L (3.5-5.0); PROTEIN TOTAL,TP 7.8 g/dL (6.4-8.2); SODIUM,NA 139 mEq/L (136-145)
[2024-06-15 03:21] LABS: C-REACTIVE PROTEIN < 0.50 mg/dL (<=0.50); ESTIMATED GFR 28 mL/min (>=60)
== END 2024-06-14 21:37 | disposition home or self-care (01) ==
LOC: CC.ED 20:44
DX: R53.81 Other malaise (principal); I10 Essential (primary) hypertension; Z88.8 Allergy status to other drugs, medicaments and biological substances; Z90.49 Acquired absence of other specified parts of digestive tract; Z90.710 Acquired absence of both cervix and uterus
CPT/HCPCS: 36415; 80053; 81001; 85025; 86140; 93005; 93010; 99283; 99284

== ENCOUNTER 2024-08-10 13:15 | Observation (INO) | payer BC ==
[2024-08-10 14:06] LABS: BASOPHILS ABSOLUTE AUTO 0.02 10^3/uL (0.00-0.50); BASOPHILS PERCENT AUTO 0.1 % (0-1); EOSINOPHILS ABSOLUTE AUTO 0.14 10^3/uL (0.00-1.50); EOSINOPHILS PERCENT AUTO 0.8 % (0-6); IMMATURE GRAN ABSOLUTE AUTO 0.05 10^3/uL (0.00-0.49); IMMATURE GRAN PERCENT AUTO 0.3 % (0.0-4.9); LYMPHOCYTES ABSOLUTE AUTO 3.15 10^3/uL (0.60-5.00); LYMPHOCYTES PERCENT AUTO 17.9 % (24-44); MEAN CORPUSCULAR HEMOGLOBIN 27.8 pg (27.0-32.0); MEAN CORPUSCULAR HGB CONC 31.4 g/dL (32.0-36.0); MEAN CORPUSCULAR VOLUME 88.4 fL (83.0-97.0); MONOCYTES ABSOLUTE AUTO 0.84 10^3/uL (0.00-1.50); MONOCYTES PERCENT AUTO 4.8 % (0-10); NEUTROPHILS ABSOLUTE AUTO 13.42 x10^3/uL (1.80-8.00); NEUTROPHILS PERCENT AUTO 76.1 % (41-71); PLATELET COUNT,PLT 408 10^3/uL (150-400); RED BLOOD CELL COUNT 3.96 x10^6/uL (4.00-5.50); WHITE BLOOD CELL COUNT,WBC 17.6 10^3/uL (4.0-11.0)
[2024-08-10 14:19] LABS: APPEARANCE,URINE CLEAR (CLEAR); BILIRUBIN,URINE NEGATIVE (NEGATIVE); COLOR,URINE YELLOW (YELLOW); GLUCOSE,URINE NEGATIVE (NEGATIVE); KETONES,URINE NEGATIVE (NEGATIVE); LEUKOCYTE ESTERASE,URINE TRACE (NEGATIVE); NITRITE,URINE NEGATIVE (NEGATIVE); OCCULT BLOOD,URINE NEGATIVE (NEGATIVE); PROTEIN,URINE NEGATIVE (NEGATIVE); UROBILINOGEN,URINE 0.2 EU/dL (0.2-1.0)
[2024-08-10 14:21] LABS: ALBUMIN 3.1 g/dL (3.4-5.0); BILIRUBIN TOTAL 0.4 mg/dL (0.0-1.0); C-REACTIVE PROTEIN 9.26 mg/dL (<=0.50); CREATININE 1.2 mg/dL (0.6-1.0); EST CRCL DRUG DOSING (CG) 44.86 mL/min; POTASSIUM,K 3.9 mEq/L (3.5-5.0)
[2024-08-10 14:37] LABS: BACTERIA,URINE FEW /HPF (NOT SEEN); EPITHELIAL CELLS,URINE FEW /HPF (NOT SEEN); RBC,URINE 0-5 /HPF (0-5); WBC CLUMPS,URINE FEW /HPF (NOT SEEN)
[2024-08-10 14:44] LABS: CORONAVIRUS COVID-19 NAA NEGATIVE (NEGATIVE); INFLUENZA A NAA NEGATIVE (NEGATIVE); INFLUENZA B NAA NEGATIVE (NEGATIVE); RESPIRATORY SYNCYTIAL VIR NAA NEGATIVE (NEGATIVE)
[2024-08-10] MEDS ORDERED: FORMOTEROL FUMARATE PO PRN (15:19)
[2024-08-10] MEDS ORDERED: BUDESONIDE PO PRN (15:19)
[2024-08-10] MEDS ORDERED: Torsemide 20 MG Tab PO PRN (15:19)
[2024-08-10] MEDS ORDERED: Albuterol 6.7 GM Inhaler INH PRN (15:19)
[2024-08-10] MEDS ORDERED: Sodium Chloride 0.9% 10 ML Syringe FLUSH PRN (15:24)
[2024-08-10] MEDS ORDERED: Acetaminophen 325 MG Tab PO PRN (15:24)
[2024-08-10] MEDS: Piperacillin/Tazobactam 4.5 GM in Sodium Chloride 0.9% 100 ML IV ONE (16:39)
[2024-08-10] MEDS: Sodium Chloride 0.9% 1,000 ML IV SCH (16:40)
[2024-08-10] MEDS: oxyCODONE 5 MG Tab PO PRN (16:51)
[2024-08-10] MEDS: Ondansetron 4 MG Tab.DIS PO PRN (19:52)
[2024-08-10] MEDS: Metoprolol Succinate 25 MG Tab.ER PO SCH (19:52)
[2024-08-10] MEDS: Piperacillin/Tazobactam 4.5 GM in Sodium Chloride 0.9% 100 ML IV SCH (19:55)
[2024-08-10] MEDS: Zolpidem 5 MG Tab PO PRN (21:01)
[2024-08-11] MEDS: Levothyroxine 50 MCG Tab PO SCH (06:56)
[2024-08-11] MEDS: Pantoprazole 40 MG Tab.CR PO SCH (06:56)
[2024-08-11] MEDS: Folic Acid 1 MG Tab PO SCH (07:12)
[2024-08-11] MEDS: Lactobacillus Rhamnosus GG (Probiotic) Cap PO SCH (07:12)
[2024-08-11] MEDS: Multivitamin Tab PO SCH (07:13)
[2024-08-11] MEDS: Metoprolol Succinate 100 MG Tab.ER PO SCH (07:23)
[2024-08-11 07:38] LABS: BASOPHILS ABSOLUTE AUTO 0.02 10^3/uL (0.00-0.50); BASOPHILS PERCENT AUTO 0.2 % (0-1); EOSINOPHILS ABSOLUTE AUTO 0.21 10^3/uL (0.00-1.50); EOSINOPHILS PERCENT AUTO 2.1 % (0-6); HEMATOCRIT 30.8 % (37.0-47.0); HEMOGLOBIN 9.6 g/dL (12.0-16.0); IMMATURE GRAN ABSOLUTE AUTO 0.02 10^3/uL (0.00-0.49); IMMATURE GRAN PERCENT AUTO 0.2 % (0.0-4.9); LYMPHOCYTES ABSOLUTE AUTO 2.39 10^3/uL (0.60-5.00); LYMPHOCYTES PERCENT AUTO 23.9 % (24-44); MEAN CORPUSCULAR HEMOGLOBIN 28.1 pg (27.0-32.0); MEAN CORPUSCULAR HGB CONC 31.2 g/dL (32.0-36.0); MEAN CORPUSCULAR VOLUME 90.1 fL (83.0-97.0); MONOCYTES ABSOLUTE AUTO 0.56 10^3/uL (0.00-1.50); MONOCYTES PERCENT AUTO 5.6 % (0-10); NEUTROPHILS ABSOLUTE AUTO 6.82 x10^3/uL (1.80-8.00); PLATELET COUNT,PLT 320 10^3/uL (150-400); RED BLOOD CELL COUNT 3.42 x10^6/uL (4.00-5.50)
[2024-08-11 07:41] LABS: C-REACTIVE PROTEIN 4.84 mg/dL (<=0.50); CALCIUM 8.1 mg/dL (8.4-10.1); CREATININE 1.3 mg/dL (0.6-1.0); EST CRCL DRUG DOSING (CG) 41.41 mL/min; POTASSIUM,K 4.3 mEq/L (3.5-5.0)
[2024-08-11] MEDS: Ondansetron 4 MG/2 ML SDV IV PRN (08:34)
[2024-08-11] MEDS: predniSONE 5 MG Tab PO PRN (09:30)
[2024-08-11] MEDS: Enoxaparin 40 MG/0.4 ML Syringe SUBCUT SCH (11:38)
[2024-08-11] MEDS ORDERED: Albuterol 0.083% 2.5 MG/3 ML Neb Soln NEB PRN (11:44)
[2024-08-12 07:34] LABS: BASOPHILS ABSOLUTE AUTO 0.02 10^3/uL (0.00-0.50); BASOPHILS PERCENT AUTO 0.3 % (0-1); EOSINOPHILS ABSOLUTE AUTO 0.26 10^3/uL (0.00-1.50); EOSINOPHILS PERCENT AUTO 4.1 % (0-6); HEMATOCRIT 31.5 % (37.0-47.0); HEMOGLOBIN 9.8 g/dL (12.0-16.0); IMMATURE GRAN ABSOLUTE AUTO 0.01 10^3/uL (0.00-0.49); IMMATURE GRAN PERCENT AUTO 0.2 % (0.0-4.9); LYMPHOCYTES ABSOLUTE AUTO 2.42 10^3/uL (0.60-5.00); LYMPHOCYTES PERCENT AUTO 37.9 % (24-44); MEAN CORPUSCULAR HGB CONC 31.1 g/dL (32.0-36.0); MONOCYTES ABSOLUTE AUTO 0.47 10^3/uL (0.00-1.50); MONOCYTES PERCENT AUTO 7.4 % (0-10); NEUTROPHILS ABSOLUTE AUTO 3.21 x10^3/uL (1.80-8.00); NEUTROPHILS PERCENT AUTO 50.1 % (41-71); PLATELET COUNT,PLT 327 10^3/uL (150-400); WHITE BLOOD CELL COUNT,WBC 6.4 10^3/uL (4.0-11.0)
[2024-08-12 07:40] VITALS: BP 143/77; PULSE 64
[2024-08-12 08:45] LABS: C-REACTIVE PROTEIN 2.09 mg/dL (<=0.50); CREATININE 1.3 mg/dL (0.6-1.0); EST CRCL DRUG DOSING (CG) 41.41 mL/min; POTASSIUM,K 4.6 mEq/L (3.5-5.0)
== END 2024-08-12 12:00 | disposition home or self-care (01) ==
LOC: CC.ED 13:15 → CC.MS 15:00 → UNDOADMOB 15:00 → CC.MS 15:09
PROVIDERS: ADMIT Nurse Practitioner Family; ATTEND Nurse Practitioner Family
DX: N30.00 Acute cystitis without hematuria (principal); D72.829 Elevated white blood cell count, unspecified; I10 Essential (primary) hypertension; K21.9 Gastro-esophageal reflux disease without esophagitis; E03.9 Hypothyroidism, unspecified; Z79.890 Hormone replacement therapy; Z79.899 Other long term (current) drug therapy
CPT/HCPCS: 0241U; 36415; 71046; 80048; 80053; 81001; 82140; 83605; 85025; 86140; 87040; 87086; 87088; 87186; 96365; 96366; 96372; 96375; 99285; A9270-GY; G0378; J1650; J2405; J2543; J7030; J7512

== ENCOUNTER 2024-11-19 11:09 | Emergency (ER) | payer BC ==
[2024-11-19 11:25] LABS: BASOPHILS ABSOLUTE AUTO 0.02 10^3/uL (0.00-0.50); BASOPHILS PERCENT AUTO 0.2 % (0-1); EOSINOPHILS ABSOLUTE AUTO 0.19 10^3/uL (0.00-1.50); EOSINOPHILS PERCENT AUTO 1.5 % (0-6); HEMOGLOBIN 10.3 g/dL (12.0-16.0); IMMATURE GRAN ABSOLUTE AUTO 0.04 10^3/uL (0.00-0.49); IMMATURE GRAN PERCENT AUTO 0.3 % (0.0-4.9); LYMPHOCYTES ABSOLUTE AUTO 2.41 10^3/uL (0.60-5.00); LYMPHOCYTES PERCENT AUTO 18.8 % (24-44); MEAN CORPUSCULAR HEMOGLOBIN 27.7 pg (27.0-32.0); MEAN CORPUSCULAR HGB CONC 32.2 g/dL (32.0-36.0); MONOCYTES ABSOLUTE AUTO 0.73 10^3/uL (0.00-1.50); MONOCYTES PERCENT AUTO 5.7 % (0-10); NEUTROPHILS ABSOLUTE AUTO 9.43 x10^3/uL (1.80-8.00); NEUTROPHILS PERCENT AUTO 73.5 % (41-71); PLATELET COUNT,PLT 284 10^3/uL (150-400); RED BLOOD CELL COUNT 3.72 x10^6/uL (4.00-5.50); WHITE BLOOD CELL COUNT,WBC 12.8 10^3/uL (4.0-11.0)
[2024-11-19 11:39] LABS: ALANINE AMINOTRANSFERASE,ALT 20 U/L (12-78); ALBUMIN 3.2 g/dL (3.4-5.0); ALKALINE PHOSPHATASE 150 U/L (46-116); ASPARTATE AMNIOTRANSFERASE,AST 16 U/L (15-37); BILIRUBIN TOTAL 0.5 mg/dL (0.0-1.0); BLOOD UREA NITROGEN,BUN 37 mg/dL (7-18); CALCIUM 9.7 mg/dL (8.4-10.1); CARBON DIOXIDE,CO2 20 mmol/L (21-32); CHLORIDE,CL 103 mEq/L (98-106); CREATININE 1.9 mg/dL (0.6-1.0); GLUCOSE RANDOM 107 mg/dL (75-99); POTASSIUM,K 3.5 mEq/L (3.5-5.0); PROTEIN TOTAL,TP 7.6 g/dL (6.4-8.2); SODIUM,NA 137 mEq/L (136-145)
[2024-11-19 11:42] LABS: C-REACTIVE PROTEIN 26.68 mg/dL (<=0.50); ESTIMATED GFR 30 mL/min (>=60)
[2024-11-19 12:06] LABS: APPEARANCE,URINE CLOUDY (CLEAR); BILIRUBIN,URINE NEGATIVE (NEGATIVE); COLOR,URINE YELLOW (YELLOW); GLUCOSE,URINE NEGATIVE (NEGATIVE); KETONES,URINE NEGATIVE (NEGATIVE); LEUKOCYTE ESTERASE,URINE SMALL (NEGATIVE); NITRITE,URINE POSITIVE (NEGATIVE); OCCULT BLOOD,URINE MODERATE (NEGATIVE); PH,URINE 5.5 (4.5-8.0); PROTEIN,URINE 30 mg/dL (NEGATIVE); UROBILINOGEN,URINE 0.2 EU/dL (0.2-1.0)
[2024-11-19 12:15] LABS: BACTERIA,URINE MANY /HPF (NOT SEEN); WBC,URINE >100 /HPF (0-5)
[2024-11-19] MEDS: Sodium Chloride 0.9% 1,000 ML IV ONE (12:55)
[2024-11-19] MEDS: Levofloxacin/Dextrose 5%-Water 500 MG in Premix Bag 1 BAG IV ONE (12:56)
[2024-11-19 14:23] VITALS: BP 145/80; PULSE 115
[2024-11-20] MEDS ORDERED: Levofloxacin/Dextrose 5%-Water 500 MG in Premix Bag 1 BAG IV ONE (12:00)
== END 2024-11-19 16:45 | disposition home or self-care (01) ==
LOC: CC.ED 11:09
DX: N30.00 Acute cystitis without hematuria (principal); I10 Essential (primary) hypertension; K21.9 Gastro-esophageal reflux disease without esophagitis; E03.9 Hypothyroidism, unspecified; Z90.49 Acquired absence of other specified parts of digestive tract; Z87.891 Personal history of nicotine dependence; Z79.899 Other long term (current) drug therapy; Z79.890 Hormone replacement therapy
CPT/HCPCS: 36415; 71046; 80053; 81001; 82140; 85025; 86140; 87086; 87088; 87186; 96361; 96365; 99283-25; J1956; J7030

== ENCOUNTER 2024-12-20 02:44 | Emergency (ER) | payer BC ==
[2024-12-20 02:57] VITALS: BP 128/80; PULSE 100
[2024-12-20 03:00] LABS: APPEARANCE,URINE CLEAR (CLEAR); GLUCOSE,URINE NEGATIVE (NEGATIVE); OCCULT BLOOD,URINE TRACE-INTACT (NEGATIVE)
[2024-12-20 03:03] LABS: BASOPHILS ABSOLUTE AUTO 0.01 10^3/uL (0.00-0.50); BASOPHILS PERCENT AUTO 0.3 % (0-1); EOSINOPHILS ABSOLUTE AUTO 0.16 10^3/uL (0.00-1.50); EOSINOPHILS PERCENT AUTO 4.2 % (0-6); IMMATURE GRAN ABSOLUTE AUTO 0.01 10^3/uL (0.00-0.49); IMMATURE GRAN PERCENT AUTO 0.3 % (0.0-4.9); LYMPHOCYTES ABSOLUTE AUTO 1.16 10^3/uL (0.60-5.00); LYMPHOCYTES PERCENT AUTO 30.7 % (24-44); MONOCYTES ABSOLUTE AUTO 0.08 10^3/uL (0.00-1.50); MONOCYTES PERCENT AUTO 2.1 % (0-10); NEUTROPHILS ABSOLUTE AUTO 2.36 x10^3/uL (1.80-8.00); NEUTROPHILS PERCENT AUTO 62.4 % (41-71); PLATELET COUNT,PLT 251 10^3/uL (150-400); RED BLOOD CELL COUNT 3.78 x10^6/uL (4.00-5.50); WHITE BLOOD CELL COUNT,WBC 3.8 10^3/uL (4.0-11.0)
[2024-12-20 03:10] LABS: SQUAMOUS EPITHELIAL CELLS,UR MODERATE /HPF (NOT SEEN)
[2024-12-20 03:11] LABS: ALANINE AMINOTRANSFERASE,ALT 30.0 U/L (12-78); ASPARTATE AMNIOTRANSFERASE,AST 22.0 U/L (15-37); BILIRUBIN TOTAL 0.3 mg/dL (0.0-1.0); BLOOD UREA NITROGEN,BUN 29.0 mg/dL (7-18); CARBON DIOXIDE,CO2 28.0 mmol/L (21-32); CHLORIDE,CL 102.0 mEq/L (98-106); CREATININE 1.6 mg/dL (0.6-1.0); EST CRCL DRUG DOSING (CG) 33.22 mL/min; ESTIMATED GFR 36.0 mL/min (>=60); GLUCOSE RANDOM 93.0 mg/dL (75-99); POTASSIUM,K 3.9 mEq/L (3.5-5.0); PROTEIN TOTAL,TP 7.2 g/dL (6.4-8.2); SODIUM,NA 138.0 mEq/L (136-145)
== END 2024-12-20 03:39 | disposition home or self-care (01) ==
LOC: CC.ED 02:44
DX: G47.00 Insomnia, unspecified (principal); F41.9 Anxiety disorder, unspecified; R51.9 Headache, unspecified; I10 Essential (primary) hypertension; K21.9 Gastro-esophageal reflux disease without esophagitis; E03.9 Hypothyroidism, unspecified; Z90.49 Acquired absence of other specified parts of digestive tract; Z79.51 Long term (current) use of inhaled steroids; Z79.890 Hormone replacement therapy; Z79.899 Other long term (current) drug therapy
CPT/HCPCS: 36415; 80053; 81001; 85025; 86140; 99284